=== PATIENT | male | born 1955 | race African-American/Black ===

== ENCOUNTER 2016-07-02 08:59 | Inpatient (IN) | payer OTHER ==
[2016-07-02] VITALS (12 sets, daily range): BP systolic 112–190; BP diastolic 63–114; PULSE 74–85; RESP 12–27; TEMP 97.3–98.7; O2SAT 96–100
[~2016-07-02 08:59] MED LIST: AMLO5TAB96 PO; CIPR-9 PO; DARU800T PO; DEXA4TAB PO; FURO20TA PO; HYDR2TAB PO; LEVA750T9 PO; METO25 PO; MIRTA15 PO; MUCI600T PO; NAPR250T57 PO; NRSS SQ; ONDA8 PO; POTA20IN3 PO; PYRI25TA11 PO; RALT100C PO; RITO100 PO; THIA100T PO; VENTAER INH; VIST25CA PO; [UNRECOGNIZED DRUG - CODE] PO; [UNRECOGNIZED DRUG - CODE] PO
[2016-07-02] MEDS ORDERED: SODIUM CHLOR 0.9% 1000 ML INJ 1,000 ML IV ONE (09:06)
[2016-07-02] MEDS ORDERED: MISCELLANEOUS NURSING INFORMATION XX PRN (09:15)
[2016-07-02] MEDS ORDERED: ALTEPLASE DRIP IV ONE (09:15)
[2016-07-02] MEDS ORDERED: SODIUM CHLORIDE 0.9% 50 ML BAG IVF ONE (09:15)
[2016-07-02] MEDS ORDERED: ALTEPLASE BOLUS 9 MG/9 ML SYR IV ONE (09:15)
--- NOTE | 2016-07-02 09:20 | RADRPT ---
EXAM DATE/TIME: 07/02/2016 09:12 [facility] COMPARISON: CT BRAIN W/O CONTRAST, June 22, 2013, 16:09. INDICATIONS : Right sided weakness and drift for one hour. RADIATION DOSE: 45.28 CTDIvol (mGy) This report was called to Dr. Neff at 0915 MEDICAL HISTORY : Cerebrovascular disease. Diabetes mellitus type 2. SURGICAL HISTORY : None. ENCOUNTER: Initial ACUITY: 1 day PAIN SCALE: 0/10 LOCATION: cranial TECHNIQUE: Multiple contiguous axial images were obtained of the head. Using automated exposure control and adj ustment of the mA and/or kV according to patient size, radiation dose was kept as low as reasonably a chievable to obtain optimal diagnostic quality images. FINDINGS: CEREBRUM: The ventricles are normal for age. No evidence of midline shift, mass lesion, hemorrhage or acute in farction. No extra-axial fluid collections are seen. POSTERIOR FOSSA: The cerebellum and brainstem are intact. The 4th ventricle is midline. The cerebellopontine angle i s unremarkable. EXTRACRANIAL: The visualized portion of the orbits is intact. SKULL: The calvaria is intact. No evidence of skull fracture. Prominent tonsils are noted. CONCLUSION: Negative for an acute process. Júnior Pratt MD FACR on July 02, 2016 at 9:17 Board Certified Radiologist. This report was verified electronically.
[2016-07-02 09:24] LABS: AUTOMATED NEUTROPHIL # 0.8 TH/MM3 (1.8-7.7); EOSINOPHIL # 0.3 TH/MM3 (0-0.4); EOSINOPHIL % 7.2 % (0.0-4.0); HEMATOCRIT 37.2 % (39.0-51.0); LYMPH % 63.5 % (9.0-44.0); MEAN CELL VOLUME 85.1 FL (80.0-100.0); MEAN CORPUSCULAR HGB CONC 32.9 % (32.0-36.0); MONO % 10.6 % (0.0-8.0); NEUT % 17.7 % (16.0-70.0); PLATELET COUNT 190 TH/MM3 (150-450); RED BLOOD COUNT 4.37 MIL/MM3 (4.50-5.90); RED CELL DISTRIBUTION WIDTH 15.2 % (11.6-17.2); WHITE BLOOD COUNT 4.7 TH/MM3 (4.0-11.0)
[2016-07-02] MEDS ORDERED: IOHEXOL 350 MG/ML 10 ML VIAL (for RAD DIAG) IV ONE (09:25)
[2016-07-02 09:28] LABS: HEMO FLAGS AUTO DIFF
[2016-07-02 09:32] LABS: APTT (PATIENT) 23.1 SEC (24.3-30.1); PROTHROMBIN TIME - PATIENT 11.2 SEC (9.8-11.6)
--- NOTE | 2016-07-02 09:50 | PD ---
HPI Chief Complaint: Stroke Alert Time Seen by Provider: 09:05 Travel History International Travel<30 days: No Contact w/Intl Traveler<30days: No History of Present Illness HPI This is a 60-year-old male who presents to the emergency department with a history of prior stroke, with weakness in his right upper extremity and right lower extremity that started 1 hour prior to arrival. He says he was sitting on the porch and when he got up to stand he realized that his right arm and right leg while working. He said his right arm and leg were working normally this morning prior to that. He says he's had a stroke in the past but has no residual deficits. He is not on any blood thinners currently. PFSH Past Medical History Hx Anticoagulant Therapy: Yes (ASA) Arthritis: Yes Asthma: Yes Autoimmune Disease: Yes Blood Disorders: No Anxiety: Yes Depression: Yes Heart Rhythm Problems: Yes Cancer: Yes (MULTIPLE MYELOMA) Cardiac Catheterization: No Cardiovascular Problems: Yes (HTN, CO) High Cholesterol: Yes Chemotherapy: Yes (3 WEEKS AGO) Chest Pain: Yes Congestive Heart Failure: Yes COPD: Yes Cerebrovascular Accident: Yes Diabetes: Yes Diminished Hearing: No Endocrine: Yes Gastrointestinal Disorders: Yes GERD: Yes Genitourinary: Yes (PT REPORTS URGENCY. ) Headaches: Yes Hepatitis: Yes (HEP C) Hiatal Hernia: No Hypertension: Yes Immune Disorder: Yes (HIV 2010) Implanted Vascular Access Dvce: Yes Kidney Stones: No Musculoskeletal: Yes Neurologic: Yes Psychiatric: Yes Reproductive: No Respiratory: Yes (COPD) Immunizations Current: No Migraines: Yes Myocardial Infarction: Yes Radiation Therapy: No Renal Failure: No Seizures: No Sleep Apnea: Yes Ulcer: No Past Surgical History Abdominal Surgery: No AICD: No Appendectomy: No Arteriovenous Shunt: No Body Medical Devices: METAL PLATES IN JAW AND SKULL Cardiac Surgery: No Cholecystectomy: No Coronary Artery Bypass Graft: No Ear Surgery: No Endocrine Surgery: No Eye Surgery: No Genitourinary Surgery: No Gynecologic Surgery: No Insulin Pump: No Joint Replacement: No Neurologic Surgery: No Oral Surgery: No Pacemaker: No Thoracic Surgery: No Other Surgery: Yes (BONE MARROW BIOPSY) Social History Alcohol Use: Yes (occasional) Tobacco Use: Yes (1-2 CIG DAILY) Substance Use: Yes (MARIJUANA daily, and cocaine OCCASIONALLY) Allergies-Medications (Allergen,Severity, Reaction): Coded Allergies: Penicillin (Verified Allergy, Severe, RASH, 06/12/16) Methocarbamol (Verified Allergy, Intermediate, SWELLING AROUND EYES, 06/12) *MDRO Multi-Drug Resistant Organism (Verified Adverse Reaction, Unknown, 06/12/16) Reported Meds & Prescriptions Reported Meds & Active Scripts Active Cipro (Ciprofloxacin HCl) 500 Mg Tab 500 Mg PO BID Mucinex (Guaifenesin) 600 Mg Tabcr 600 Mg PO BID Levaquin (Levofloxacin) 750 Mg Tab 1 Tab PO DAILY 7 Days Reported Naprosyn (Naproxen) 250 Mg Tab 250 Mg PO BID PRN Hydromorphone Hcl (Hydromorphone HCl) 4 Mg Tab 4 Mg PO Q6HR Zofran 8 Mg Tab (Ondansetron Hcl) 8 Mg Tab 8 Mg PO Q8HR PRN Siltussin [place] (Guaifenesin) 100 Mg/5 Ml Syp 200 Mg PO Q12HR MUST BE SUGAR & ALCOHOL FREE Novolin Regular Insulin Supplemental Scale (Insulin Human Regular) U 100 Inj 2- 12 Units SQ TIDACHS Medium Dose Regular Insulin Sliding Scale = Max dose at bedtime:( )units; Max dose at 3am:( ); blood sugars less than 70 take zero insulin units; blood sugars 150-199 take 2 unit; blood sugars 200-249 take 4 units; blood sugars 250-299 take 7 units; blood sugars 300-349 take 10 units; blood sugars greater than 349 take 12 units Dexamethasone 4 mg (Dexamethasone) 4 Mg Tab 40 Mg PO WEEKLY TAKES ON THURSDAYS Furosemide 20 Mg Tab 20 Mg PO DAILY Metoprolol Tartrate 25 mg (Metoprolol Tartrate) 25 Mg Tab 6.25 Mg PO BID [id number] 25 Mg Tab 50 Mg PO DAILY Thiamine HCl 100 Mg Tab 100 Mg PO DAILY Prezista (Darunavir Ethanolate) 800 Mg Tab 800 Mg PO DAILY [id number] 18 Gm Aero 2 Puff INH Q4HPRN PRN * SHAKE WELL BEFORE USE * Isentress (Raltegravir Potassium) 100 Mg Chw 400 Mg PO Q12HR Potassium Chloride inj (Potassium Chloride) 20 Meq Pow 20 Meq PO BID W/4OZ WATER Mirtazapine 15 Mg Tab 15 Mg PO HS Norvasc (Amlodipine Besylate) 5 Mg Tab 5 Mg PO DAILY Ziagen 300 mg (Abacavir Sulfate) 300 Mg Tab 600 Mg PO Q12 Vistaril (Hydroxyzine Pamoate) 25 Mg Cap 25 Mg PO [id number] for itching Norvir (Ritonavir) 100 Mg Cap 100 Mg PO BID Review of Systems Except as stated in HPI: all other systems reviewed are Neg Physical Exam Narrative GENERAL: Frail, no acute distress SKIN: Warm and dry. HEAD: Atraumatic. Normocephalic. EYES: Pupils equal and round. No injection or drainage. ENT: Moist mucous membranes NECK: Trachea midline. CARDIOVASCULAR: Regular rate and rhythm. No murmur appreciated. RESPIRATORY: Clear to auscultation. Breath sounds equal bilaterally. GASTROINTESTINAL: Abdomen soft, non-tender, nondistended. MUSCULOSKELETAL: No obvious deformities. NEUROLOGICAL: Awake and alert. No obvious cranial nerve deficits. No dysarthria or aphasia. Unable to lift the right arm off the bed, right leg has 4/5 strength and is ataxic, sensation is diminished on the right upper and right lower extremities. PSYCHIATRIC: Appropriate mood and affect; insight and judgment normal. Data Data Last Documented VS Vital Signs Date Time Temp Pulse Resp B/P Pulse Ox O2 Delivery O2 Flow Rate FiO2 07/02/16 09:39 Nasal Cannula 07/02/16 09:39 96 2 Orders Diet Npo (07/02/16 Breakfast) Activity Bed Rest (07/02/16 ) Electrocardiogram (07/02/16 ) I-Stat Creatinine (07/02/16 09:06) I-Stat Profile (07/02/16 09:06) Prothrombin Time / Inr (Pt) (07/02/16 09:06) Act Partial Throm Time (Ptt) (07/02/16 09:06) Complete Blood Count With Diff (07/02/16 09:06) Fibrinogen (07/02/16 09:06) Creatine Kinase (Cpk) (07/02/16 09:06) Troponin I (07/02/16 09:06) Ua Includes Microscopic (07/02/16 09:06) Drug Screen, Random Urine (07/02/16 09:06) Type And Screen (07/02/16 09:06) Ct Brain W/O Iv Contrast(Rout) (07/02/16 ) Consult Neurology (07/02/16 ) Blood Glucose (07/02/16 09:06) Ecg Monitoring (07/02/16 09:06) Neuro Checks Q2HX12,Q4H (07/02/16 09:06) Nursing Bedside Swallow Assess .ONCE (07/02/16 09:06) Iv Access Insert/Monitor (07/02/16 09:06) NPO (07/02/16 09:06) Oximetry (07/02/16 09:06) Oxygen Administration (07/02/16 09:06) Sodium Chlor 0.9% 1000 Ml Inj (Ns 1000 M (07/02/16 09:06) Resp Oxygen Iron C Titrat 1-4 L (07/02/16 09:06) Cath For Specimen (07/02/16 09:06) ^ Call Pharmacy (07/02/16 09:10) Nih Stroke Scale - Nihss .ONCE (07/02/16 09:10) Urinary Catheter Management BERYL.Q8H (07/02/16 09:10) Urinary Catheter Insert/Apply (07/02/16 09:10) ^ Anticoagulant Alert (07/02/16 09:10) ^ Post Infusion Restrictions (07/02/16 09:10) ^ Medication Alert (07/02/16 09:10) Vital Signs (Adult) .As directed (07/02/16 09:10) ^ Notify Dr: Blood Pressure (07/02/16 09:10) ^ Medication Alert (07/02/16 09:10) Alteplase Bolus (Activase Bolus) (07/02/16 09:15) Alteplase Drip (Activase Drip) (07/02/16 09:15) Sodium Chloride 0.9% Inj (Ns Inj) (07/02/16 09:15) Misc Nursing Information (07/02/16 09:15) Resp Oxygen Iron C Titrat 1-4 L (07/02/16 ) Cta Brain W Iv Contrast W 3d (07/02/16 ) Cta Neck W Iv Contrast W 3d (07/02/16 ) Iohexol 350 Inj (Omnipaque 350 Inj) (07/02/16 09:25) Labs Laboratory Tests Test 07/02/16 09:05 White Blood Count 4.7 TH/MM3 Red Blood Count 4.37 MIL/MM3 Hemoglobin 12.2 GM/DL Hematocrit 37.2 % Mean Corpuscular Volume 85.1 FL Mean Corpuscular Hemoglobin 28.0 PG Mean Corpuscular Hemoglobin 32.9 % Concent Red Cell Distribution Width 15.2 % Platelet Count 190 TH/MM3 Mean Platelet Volume 8.4 FL Neutrophils (%) (Auto) 17.7 % Lymphocytes (%) (Auto) 63.5 % Monocytes (%) (Auto) 10.6 % Eosinophils (%) (Auto) 7.2 % Basophils (%) (Auto) 1.0 % Neutrophils # (Auto) 0.8 TH/MM3 Lymphocytes # (Auto) 3.0 TH/MM3 Monocytes # (Auto) 0.5 TH/MM3 Eosinophils # (Auto) 0.3 TH/MM3 Basophils # (Auto) 0.0 TH/MM3 CBC Comment AUTO DIFF Prothrombin Time 11.2 SEC Prothromb Time International 1.0 RATIO Ratio Activated Partial 23.1 SEC Thromboplast Time Fibrinogen 266 mg/dL MDM Medical Screen Exam Complete: Yes Emergency Medical Condition: Yes Medical Record Reviewed: Yes (patient evidently has a history of HIV, multiple myeloma and other multiple medical problems) Differential Diagnosis Ischemic stroke, hemorrhagic stroke, seizure, tumor Narrative Course This is a 60-year-old male who presents to the emergency department brought in as a stroke alert. He has evidence of right upper and right lower extremity weakness and he says the symptoms started an hour prior to arrival. Patient appears to be a good TPA candidate. He was placed on a monitor and an IV was established. He was given IV labetalol and started on a nicardipine drip. He was transferred stat to CT and dry CT of the head was negative for intracranial hemorrhage. I spoke to the patient regarding risks and benefits of TPA and he was agreeable to initiation of TPA. TPA was started and a CTA of the head and neck were obtained to evaluate for possible intervenable lesion. Patient will be admitted to the intensive care unit. Critical Care Narrative Aggregate critical care time was 45 minutes. Time to perform other separately billable procedures was not included in the critical care time. My time did not include minutes spent treating any other patients simultaneously or on activities that did not directly contribute to the patient's treatment. The services I provided to this patient were to treat and/or prevent clinically significant deterioration that could result in: disability, I provided critical care services requiring my management, as noted below: Chart data review, documentation time, medication orders and management, vital sign assessments/reviewing monitor data, ordering and reviewing lab tests, ordering and interpreting/reviewing x-rays and diagnostic studies, care of the patient and discussion of the patient with the admitting physicians. Stroke Alert NIHSS NIH Stroke Scale Result: 6 NIHSS Time Completed: 09:10 Physician Communication Physician Communication Discussed with Dr. Mcneill Diagnosis Diagnosis: Primary Impression: Stroke Qualified Code: I63.9 - Cerebrovascular accident (CVA), unspecified mechanism Admitting Physician Requests: Admit Ninfa Vidales MD Jul 02, 2016 09:50
[2016-07-02 09:52] LABS: CREATINE KINASE 208 U/L (39-308)
[2016-07-02 09:54] LABS: I-STAT POTASSIUM 3.6 MMOL/L (3.5-4.9); I-STAT SODIUM 141 MMOL/L (138-146)
--- NOTE | 2016-07-02 09:59 | PD.CONS ---
History of Present Illness Service Neurology Consult Requested By er Reason for Consult stroke alert Primary Care Physician [facility] History of Present Illness 60 y/o m brought in for acute rt sided weakness. onset approx 1 hour before arrival. he thinks he has had a previous stroke. not on any blood thinners. ct brain naicp. cta brain/carotids, no major vessel occlusion. glucose 91. no hx of gi/gu bleed, ich, recent mi. tx options d/w pt. would iv tpa understanding at least 6% chance of ich, systemic bleeding. Review of Systems All other ROS: ROS reviewed as documented in chart Past Family Social History Allergies: Coded Allergies: Penicillin (Verified Allergy, Severe, RASH, 07/02/16) Methocarbamol (Verified Allergy, Intermediate, SWELLING AROUND EYES, ) *MDRO Multi-Drug Resistant Organism (Verified Adverse Reaction, Unknown, ) Active Ordered Medications Current Medications Medications (Trade) Dose Ordered Sig/Donna Route Start Time Stop Time Status Last Admin Sodium Chloride 1,000 ml @ 70 mls/hr [id number] ONCE IV 07/02/16 09:06 07/02/16 23:23 (Activase Drip/ Syringe/Bag) 46.5 ml @ 46.5 mls/hr ONCE ONCE IV 07/02/16 09:15 07/02/16 10:14 07/02/16 09:34 Miscellaneous Information No Heparin, Warfarin, Aspir... UNSCH PRN XX 07/02/16 09:15 07/03/16 09:14 Exam I&O / VS Vital Signs Date Time Temp Pulse Resp B/P Pulse Ox O2 Delivery O2 Flow Rate FiO2 07/02/16 09:39 Nasal Cannula 07/02/16 09:39 96 Nasal Cannula 2 07/02/16 09:07 96 Nasal Cannula 3.00 07/02/16 09:00 97.7 80 15 190/114 96 07/02/16 08:59 96 3.00 General: Alert and Oriented, No acute distress Eye: EOMI Respiratory: Non-labored respirations Neurologic: Alert, Oriented Psychiatric: Cooperative, Appropriate mood & affect Exam Comments ox 3. follows, eomi, vff, face sym, articulate but mild dysfluency, rt hemiplegia with proportional dystaxia nihss 10 Review/Management Diagnosis/Plan: (1) Acute ischemic left MCA stroke Plan: s/p iv tpa -hx of hiv, multiple myeloma ? vasculopathy vs 2/2 small vessel dz from chronic htn recs post-tpa orders isc admission mri brain, echo bp <180/100; cardene gtt as needed scd's no blood thinners for 24 hrs (2) HTN (hypertension) (3) Multiple myeloma Problem Qualifiers (1) HTN (hypertension): Qualified Code: I10 - Essential hypertension (2) Multiple myeloma: Qualified Code: C90.00 - Multiple myeloma, remission status unspecified Francis Mcneill MD Jul 02, 2016 09:59
--- NOTE | 2016-07-02 10:11 | RADRPT ---
EXAM DATE/TIME: 07/02/2016 09:21 [facility] COMPARISON: CT PULMONARY ANGIOGRAM, December 06, 2012, 18:19. INDICATIONS : Right sided weakness and drift for one hour. IV CONTRAST: 75 cc Omnipaque 350 (iohexol) IV ; Cumulative dose for multiple exams. RADIATION DOSE: 27.72 CTDIvol (mGy) ; Combined studies MEDICAL HISTORY : Diabetes mellitus type 2. Cerebrovascular disease. SURGICAL HISTORY : None. ENCOUNTER: Initial ACUITY: 1 day PAIN SCALE: 0/10 LOCATION: cranial TECHNIQUE: Volumetric scanning was performed using a multi-row detector CT scanner. The data was post processed with a variety of visualization algorithms including full volume maximum intensity projection, multi -planar sliding thin slab reformation, curved planar reformation, and surface rendering techniques. Using automated exposure control and adjustment of the mA and/or kV according to patient size, radiat ion dose was kept as low as reasonably achievable to obtain optimal diagnostic quality images. FINDINGS: The right posterior cerebral artery origin is . The supraclinoid left internal carotid artery is notable for a tiny saccular outpouching along its undersurface in the region of the expected origin of the posterior communicating artery measuring about 2 mm in size consistent with a tiny aneurysm. T he port lions of [place] vessels are otherwise intact and unremarkable. There is no evidence of major vess el occlusion or stenosis. No vascular malformation is identified. CONCLUSION: Tiny left ICA aneurysm. Otherwise unremarkable with no acute vascular findings. Kiko Kang MD on July 02, 2016 at 10:00 Board Certified Radiologist. This report was verified electronically.
[2016-07-02 10:12] LABS: EOSINOPHILS 10 % (0-4); NEUTROPHIL # MANUAL DIFF 0.9 TH/MM3 (1.8-7.7); POLYS (SEG NEUTROPHILS) 19 % (16-70); WBC DIFF SAMPLE 100
[2016-07-02 10:13] LABS: PLATELET ESTIMATE SMEAR NORMAL (NORMAL); PLATELET MORPHOLOGY NORMAL (NORMAL); SCAN/DIFF FINAL DIFF MANUAL
--- NOTE | 2016-07-02 10:23 | RADRPT ---
EXAM DATE/TIME: 07/02/2016 09:21 [facility] COMPARISON: No previous studies available for comparison. INDICATIONS : Right sided weakness and drift for one hour. IV CONTRAST: 75 cc Omnipaque 350 (iohexol) IV ; Cumulative dose for multiple exams. RADIATION DOSE: 27.70 CTDIvol (mGy) ; Combined studies MEDICAL HISTORY : Cerebrovascular disease. Hypertension. SURGICAL HISTORY : None. ENCOUNTER: Initial ACUITY: 1 day PAIN SCALE: 0/10 LOCATION: cranial TECHNIQUE: Volumetric scanning was performed using a multirow detector CT scanner. The data was post processed with a variety of visualization algorithms including full-volume maximum intensity projection, multip lanar sliding thin-slab reformation, curved-planar reformation, and surface-rendering techniques. Us ing automated exposure control and adjustment of the mA and/or kV according to patient size, radiatio n dose was kept as low as reasonably achievable to obtain optimal diagnostic quality images. FINDINGS: There is a slightly less than 2 cm irregular parenchymal density in the right lung apex. AORTIC ARCH: There is a three-vessel origin of the great vessels from the aorta. No evidence of ostial narrowing. RIGHT CAROTID: Minimally eccentric plaque at the origin of the internal carotid artery without significant associate d stenotic narrowing. LEFT CAROTID: Mild eccentric plaque at the origin of the left internal carotid artery producing about 30% stenotic narrowing. VERTEBRALS: Patent bilaterally, left side dominant. CONCLUSION: Nodular density in the right lung apex. Followup versus further elective evaluation with PET CT recom mended as clinically appropriate. No significant carotid stenosis Kiko Kang MD on July 02, 2016 at 10:17 Board Certified Radiologist. This report was verified electronically.
[2016-07-02 10:48] LABS: BLOOD, URINE NEG (NEG); GLUCOSE,URINE NEG (NEG); KETONE, URINE NEG (NEG); NITRITE,URINE NEG (NEG); SQUAMOUS EPITHELIAL CELL URINE <1 /hpf (0-5); URINE COLOR LIGHT-YELLOW (YELLW/STRAW)
[2016-07-02 10:56] LABS: AMPHETAMINE, URINE NEG (NEG); BARBITURATES, URINE NEG (NEG); COCAINE, URINE POS (NEG)
[2016-07-02] MEDS ORDERED: GLUCAGON 1 MG/ML VIAL IM/SQ PRN (11:00)
[2016-07-02] MEDS ORDERED: MAGNESIUM SULFATE INJ 2 GM in SODIUM CHLORIDE 0.9% INJ 96 ML IV PRN (11:00)
[2016-07-02] MEDS ORDERED: CHLORHEXIDINE GLUCONATE 2 % 1 PACK (2 CLOTHS) TOP PRN (11:00)
[2016-07-02] MEDS ORDERED: RESP: ALBUTEROL 2.5 MG/IPRATROPIUM 0.5 MG NEB (PRN) INH (11:00)
[2016-07-02] MEDS: INSULIN ASPART SUPPLEMENTAL SCALE SQ SCH ×3 (11:00→21:00)
[2016-07-02] MEDS ORDERED: MAGNESIUM OXIDE 400 MG TAB PO PRN (11:00)
[2016-07-02] MEDS ORDERED: POTASSIUM CHLOR 40 MEQ PREMIX 100 ML IV PRN ×2 (11:00)
[2016-07-02] MEDS ORDERED: ACETAMINOPHEN 325 MG TAB PO PRN (11:00)
[2016-07-02] MEDS ORDERED: POTASSIUM PHOSPHATE INJ 30 MMOL in SODIUM CHLOR 0.9% 250 ML INJ 250 ML IV PRN (11:00)
[2016-07-02] MEDS ORDERED: SODIUM PHOSPHATE INJ 30 MMOL in SODIUM CHLOR 0.9% 250 ML INJ 240 ML IV PRN (11:00)
[2016-07-02] MEDS ORDERED: POTASSIUM CL 40 MEQ/30 ML LIQ UDC PO/TUBE PRN ×2 (11:00)
[2016-07-02] MEDS ORDERED: MAGNESIUM SULFATE INJ 4 GM in SODIUM CHLORIDE 0.9% INJ 92 ML IV PRN (11:00)
[2016-07-02] MEDS ORDERED: ONDANSETRON HCL 4 MG/2 ML VIAL IV PRN (11:00)
[2016-07-02] MEDS ORDERED: POTASSIUM PHOSPHATE MONOBASIC 500 MG TAB PO/TUBE PRN (11:00)
[2016-07-02] MEDS ORDERED: niCARdipine INJ 25 MG in SODIUM CHLOR 0.9% 250 ML INJ 250 ML IV SCH (11:00)
[2016-07-02] MEDS ORDERED: MISCELLANEOUS NURSING INFORMATION XX SCH (11:00)
[2016-07-02] MEDS ORDERED: POTASSIUM CHLOR 20 MEQ PREMIX 100 ML IV PRN ×2 (11:00)
[2016-07-02] MEDS ORDERED: DEXTROSE 50% IN WATER 50 ML VIAL(D50) IV PUSH PRN (11:00)
[2016-07-02] MEDS ORDERED: SODIUM CHLORIDE 0.9% FLUSH 5 ML FLUSH IV FLUSH PRN (11:00)
[2016-07-02] MEDS ORDERED: SODIUM CHLORIDE 0.9% FLUSH 5 ML FLUSH IVF PRN (11:00)
[2016-07-02] MEDS ORDERED: POTASSIUM PHOSPHATE MONOBASIC 500 MG TAB PO PRN (11:00)
[2016-07-02] MEDS ORDERED: MORPHINE SULFATE 4 MG/ML INJ IV PRN (11:00)
[2016-07-02] MEDS ORDERED: SENNOSIDES 8.6 MG TAB PO PRN (11:00)
[2016-07-02 11:13] LABS: HDL CHOLESTEROL 95.3 MG/DL (40.0-60.0); LDL CHOLESTEROL 115 MG/DL (0-99)
[2016-07-02] MEDS ORDERED: RITO100 PO (11:29)
[2016-07-02] MEDS ORDERED: METO25TA3 PO (11:29)
[2016-07-02] MEDS ORDERED: ONDA1TAB17 PO (11:29)
[2016-07-02] MEDS ORDERED: POTA1TAB4 PO (11:29)
[2016-07-02] MEDS ORDERED: RALT400 PO (11:29)
[2016-07-02] MEDS ORDERED: MIRTA15 PO (11:29)
[2016-07-02] MEDS ORDERED: NOVORP2 SQ (11:29)
[2016-07-02] MEDS ORDERED: NAPR250T PO (11:29)
[2016-07-02] MEDS ORDERED: THIA100T PO (11:29)
[2016-07-02] MEDS ORDERED: GUAI1TAB7 PO (11:36)
[2016-07-02] MEDS ORDERED: DEXA4TAB PO (11:36)
[2016-07-02] MEDS ORDERED: DILA4TAB2 PO (11:36)
[2016-07-02] MEDS ORDERED: VIST25CA PO (11:36)
[2016-07-02] MEDS ORDERED: PYRI25 PO (11:36)
[2016-07-02] MEDS ORDERED: [UNRECOGNIZED DRUG - CODE] PO (11:36)
[2016-07-02] MEDS ORDERED: DARU800T PO (11:36)
[2016-07-02] MEDS ORDERED: FURO1TAB62 PO (11:36)
[2016-07-02] MEDS ORDERED: AMLO5TAB2 PO (11:36)
[2016-07-02] MEDS ORDERED: VENTAER INH (11:37)
[2016-07-02] MEDS ORDERED: ZIAG300T3 PO (11:37)
--- NOTE | 2016-07-02 11:50 | HHI.HP ---
[facility] Service Critical Care Medicine Primary Care Physician [facility] Admission Diagnosis stroke Diagnosis: (1) Stroke Diagnosis: Principal (2) Acute ischemic left MCA stroke Diagnosis: Principal (3) Multiple myeloma (4) HTN (hypertension) Diagnosis: Principal (5) Diabetes Diagnosis: Principal (6) Chronic back pain Diagnosis: Principal (7) COPD (chronic obstructive pulmonary disease) Diagnosis: Principal (8) GERD (gastroesophageal reflux disease) Diagnosis: Principal (9) Anxiety and depression Diagnosis: Principal (10) High cholesterol Diagnosis: Principal (11) HCV (hepatitis C virus) Diagnosis: Principal (12) HIV (human immunodeficiency virus infection) Diagnosis: Principal (13) CAD (coronary artery disease) Diagnosis: Principal (14) Compression fracture of lumbar vertebra Diagnosis: Principal (15) Tetrahydrocannabinol (THC) use disorder, mild, abuse Diagnosis: Principal (16) Tobacco abuse Diagnosis: Principal Chief Complaint: Right sided weakness Travel History International Travel<30 Days: No Contact w/Intl Traveler <30 Da: No Traveled to Known Affected Are: No History of Present Illness 60-year-old AA male. Date of admission 07/02/2016. Past medical history includes HIV, hepatitis C, hypertension, depression, anxiety, COPD, diabetes, dyslipidemia, prior NE, THC, ongoing tobaccoism and chronic nausea. This individual presents to [place] emergency department with a history of prior stroke, with weakness in his right upper extremity and right lower extremity that started 1 hour prior to arrival. At approximately 820, this individual says he was sitting on the porch and when he got up to stand he realized that his right arm and right leg while working. He said his right arm and leg were working normally this morning prior to that. He says he's had a stroke in the past but has no residual deficits. In the ED, stroke or skull. CT head revealed no acute intracranial findings. CTA of the head revealed a small ICA aneurysm projecting [address] neck showed no vascular abnormalities but revealed pulmonary mass right apex that will need follow-up CT PET scan. Patient was evaluated Dr. Mcneill/neurology. NIH score was 6 with motor arm 2, motor leg 3 and 1 for limb ataxia in the right arm. Patient received alteplase with a 6 mg bolus followed by 54 mg overnight. Patient is hypertensive with systolic blood pressure 190s was started on a Cardene drip. Neurological examination is unchanged throughout the infusion. Review of Systems Constitutional: DENIES: Fatigue, Fever Endocrine: DENIES: Polydipsia, Polyuria Eyes: DENIES: Blurred vision, Double Vision Ears, nose, mouth, throat: DENIES: Hearing loss, Running Nose, Epistaxis Respiratory: DENIES: Apneas Cardiovascular: DENIES: Chest pain, Lower Extremity Edema Gastrointestinal: DENIES: Abdominal pain, Vomiting Genitourinary: DENIES: Sexual dysfunction Musculoskeletal: DENIES: Joint pain Integumentary: DENIES: Abnormal pigmentation Hematologic/lymphatic: DENIES: Bruising Immunologic/allergic: DENIES: Eczema Neurologic: COMPLAINS OF: Localized weakness, Poor Balance, DENIES: Abnormal gait Psychiatric: DENIES: Anxiety, Confusion Past Family Social History Allergies: Coded Allergies: Penicillin (Verified Allergy, Severe, RASH, 07/02/16) Methocarbamol (Verified Allergy, Intermediate, SWELLING AROUND EYES, ) *MDRO Multi-Drug Resistant Organism (Verified Adverse Reaction, Unknown, ) Past Medical History Alcohol use Ongoing tobaccoism THC use Prior history of CVA. Prior history of cocaine use Hypertension Congestive heart failure unknown etiology. Last echocardiogram EF 55-60% 2006. Hypertension Dyslipidemia COPD SILVANA Hepatitis C Chronic nausea Gastroesophageal reflux disease BPH HIV Osteoporosis/arthritis Diabetes mellitus Low back pain Past Surgical History Mandibular fracture Bone marrow biopsy Vertebral body biopsy Reported Medications Dexamethasone 40 mg daily Remeron 15 mg at night Zofran 8 mg every 8 hours as needed for nausea Ziagen 600 mg every 12 hours Prezista 800 mg daily Inetress 400 mg every 12 hours [place]. 100 mg twice a day Norvasc 5 mg by mouth daily Mucinex 600 mg by mouth twice a day Lasix 20 mg by mouth daily Dilaudid 4 mg by mouth every 6 hours Daraprim 50 mg by mouth daily KCl 20 mEq twice a day Thiamine 100 mg by mouth daily Active Ordered Medications Reviewed in EMR Family History Mother and and father are noncontributory to the history of present illness. 3 times.. Lives with sister. Has 4 children. Social History One half Per day tobacco. Used to be 2 pack per day. Social alcohol use. Positive THC use. Positive history of cocaine abuse. Physical Exam Vital Signs Vital Signs Date Time Temp Pulse Resp B/P Pulse Ox O2 Delivery O2 Flow Rate FiO2 07/02/16 09:39 Nasal Cannula 07/02/16 09:39 96 Nasal Cannula 2 07/02/16 09:07 96 Nasal Cannula 3.00 07/02/16 09:00 97.7 80 15 190/114 96 07/02/16 08:59 96 3.00 Physical Exam GENERAL: 60 -year-old AA male, critically ill currently resting in bed in no acute distress SKIN: Warm and dry. Multiple tattoos on the thorax HEAD: Atraumatic. Normocephalic. EYES: Pupils equal and round about 3 mm bilaterally and reactive. No scleral icterus. No injection or drainage. ENT: No nasal bleeding or discharge. Mucous membranes pink and moist. NECK: Trachea midline. No JVD. CARDIOVASCULAR: Regular rate and rhythm. S1, S2. No S4 without murmur RESPIRATORY: Clear to auscultation. Breath sounds equal bilaterally. GASTROINTESTINAL: Abdomen soft, non-tender, scaphoid. Hypoactive bowel sounds MUSCULOSKELETAL: Extremities without significant peripheral edema. No obvious deformities. NEUROLOGICAL: Awake and alert. No obvious cranial nerve deficits. Right motor arm 2/5. Right motor leg 1/5. Left upper and lower extremity 5/5. DTRs equal/ symmetric bilaterally. Normal sensation.. PSYCHIATRIC: Appropriate mood and affect; insight and judgment normal. Laboratory Laboratory Tests Test 07/02/16 07/02/16 09:05 10:15 White Blood Count 4.7 Red Blood Count 4.37 Hemoglobin 12.2 Bedside Hemoglobin 12.9 Hematocrit 37.2 Bedside Hematocrit 38.0 Mean Corpuscular Volume 85.1 Mean Corpuscular Hemoglobin 28.0 Mean Corpuscular Hemoglobin 32.9 Concent Red Cell Distribution Width 15.2 Platelet Count 190 Mean Platelet Volume 8.4 Neutrophils (%) (Auto) 17.7 Lymphocytes (%) (Auto) 63.5 Monocytes (%) (Auto) 10.6 Eosinophils (%) (Auto) 7.2 Basophils (%) (Auto) 1.0 Neutrophils # (Auto) 0.8 Lymphocytes # (Auto) 3.0 Monocytes # (Auto) 0.5 Eosinophils # (Auto) 0.3 Basophils # (Auto) 0.0 CBC Comment AUTO DIFF Differential Total Cells 100 Counted Neutrophils % (Manual) 19 Lymphocytes % 63 Monocytes % 8 Eosinophils % 10 Neutrophils # (Manual) 0.9 Differential Comment FINAL DIFF MANUAL Platelet Estimate NORMAL Platelet Morphology Comment NORMAL Red Cell Morphology Comment NORMAL Prothrombin Time 11.2 Prothromb Time International 1.0 Ratio Activated Partial 23.1 Thromboplast Time Fibrinogen 266 Bedside Sodium 141 Bedside Potassium 3.6 Bedside Chloride 103 Bedside Blood Urea Nitrogen 10 Bedside Creatinine 1.2 Bedside Glucose 91 Total Creatine Kinase 208 Troponin I LESS THAN 0.02 Blood Type B POSITIVE Antibody Screen NEGATIVE Blood Bank Comment Urine Color LIGHT-YELLOW Urine Turbidity CLEAR Urine pH 7.0 Urine Specific [place] 1.029 Urine Protein NEG Urine Glucose (UA) NEG Urine Ketones NEG Urine Occult Blood NEG Urine Nitrite NEG Urine Bilirubin NEG Urine Urobilinogen LESS THAN 2.0 Urine Leukocyte Esterase NEG Urine RBC LESS THAN 1 Urine WBC LESS THAN 1 Urine Squamous Epithelial <1 Cells Urine Opiates Screen NEG Urine Barbiturates Screen NEG Urine Amphetamines Screen NEG Urine Benzodiazepines Screen NEG Urine Cocaine Screen POS Urine Cannabinoids Screen NEG Result Diagram: 07/02/16904 Imaging Last Impressions Neck CTA 07/02/16 0000 Signed Impressions: Service Date/Time: Saturday, July 02, 2016 09:21 - CONCLUSION: Nodular density in the right lung apex. Followup versus further elective evaluation with PET CT recommended as clinically appropriate. No significant carotid stenosis Kiko Kang MD Head CTA 07/02/16 0000 Signed Impressions: Service Date/Time: Saturday, July 02, 2016 09:21 - CONCLUSION: Tiny left ICA aneurysm. Otherwise unremarkable with no acute vascular findings. Kiko Kang MD Head CT 07/02/16 0000 Signed Impressions: Service Date/Time: Saturday, July 02, 2016 09:12 - CONCLUSION: Negative for an acute process. Júnior Pratt MD FACR Assessment and Plan Assessment and Plan Neuro/Psych: Left MCA CVA with right upper and lower extremity motor weakness History of CVA 2 mm left ICA aneurysm EtOH THC History of migraine headache Chronic narcotic use with Dilaudid CT head revealed no acute intracranial findings CTA head/neck revealed left ICA 2 mm saccular aneurysm. Seen by Dr. Mcneill/neurology Status post alteplase. MRI/echo/[address] head all pending Patient is on thiamine 100 mg by mouth daily for EtOH use. Patient is on Dilaudid 4 mg every 6 hours scheduled for chronic pain syndrome Patient is on Remeron 50 mg at night for depression. Resume clinically indicated CV: Hypertensive urgency Congestive heart failure unknown etiology Dyslipidemia Currently on Cardene drip to maintain systolic blood pressure was 185, diastolic blood pressure less than 110. Patient is on Norvasc 5 mg by mouth daily for hypertension at home. Resp: COPD Left apex mass - follow-up CT PET scan recommended Nasal cannula to maintain saturations greater than equal to 92% Incentive spirometry while awake Bronchodilator therapy every 6 hours and as needed GI: Hepatitis C Gastroesophageal reflux disease Chronic nausea Patient is currently nothing by mouth Protonix 40 mg IV daily for GI prophylaxis Colace/as needed Senokot for bowel regimen Patient is on Zofran 8 mg every 8/Vistaril 20 mg every 12 hours for chronic nausea : BPH [place] if indicated for accurate I's and O's in a critically ill patient Endo: Diabetes mellitus Sliding-scale insulin with Accu-Cheks to maintain euglycemia. Low regimen Follow-up on hemoglobin A1c and TSH Patient is on Humulin R sliding scale insulin to 12 units before meals/at bedtime at home Renal: Creatinine currently within normal limits. Monitor urine output closely Currently normal saline at 70 cc an hour Heme: Multiple myeloma Normocytic anemia Leukocytosis Follow CBC in a.m. Coags within normal limits Patient is on Decadron 40 mg every for his Velcade therapy. Received with Dr. Bradly Lopez.. ID: HIV Patient is on Ziagen 600 mg every 12 hours, Prezista 800 mg daily, Inetress 400 mg by mouth every 12 hours and Norvir 100 mg by mouth twice a day. Resume when clinically indicated Patient is on Daraprim 50 mg by mouth daily for toxoplasmosis prophylaxis Follow-up UA FEN: Replace electrolytes as clinically indicated per electrolyte protocol MSK: Chronic low back pain Osteoporosis/osteoarthritis PT/OT evaluate and treat. Access - Utilize peripheral IV. Central if indicated Prophylaxis - GI - Protonix - DVT - SCD/pharmacological prophylaxis contraindicated status post alteplase was 24 hours Critical Care: The total critical care time was 55 minutes. Time to perform other separately billable procedures was not included in the critical care time. Code Status Full code Discussed Condition With Dr. Vidales/ED physician and patient. Care plan discussed and all questions answered Problem Qualifiers (1) Stroke: Qualified Code: I63.9 - Cerebrovascular accident (CVA), unspecified mechanism (2) Multiple myeloma: Qualified Code: C90.00 - Multiple myeloma, remission status unspecified (3) HTN (hypertension): Qualified Code: I10 - Essential hypertension (4) Diabetes: Qualified Code: E11.8 - Type 2 diabetes mellitus with complication, without long-term current use of insulin (5) Chronic back pain: Qualified Code: M54.5 - Chronic bilateral low back pain without sciatica (6) COPD (chronic obstructive pulmonary disease): Qualified Code: J44.9 - Chronic obstructive pulmonary disease, unspecified COPD type (7) HCV (hepatitis C virus): Qualified Code: B18.2 - Chronic hepatitis C without hepatic coma (8) CAD (coronary artery disease): Qualified Code: I25.10 - Coronary artery disease involving rampart heart without angina pectoris, unspecified vessel or lesion type (9) Compression fracture of lumbar vertebra: Qualified Code: S32.000D - Compression fracture of lumbar vertebra, with routine healing, subsequent encounter Claudio Kahn MD Jul 02, 2016 11:50
--- NOTE | 2016-07-02 12:24 | EKG ---
Date Performed: 07/02/2016 Time Performed: 09:40:33 PTAGE: 60 years EKG: Sinus rhythm POSSIBLE ANTERIOR MYOCARDIAL INFARCTION ABNORMAL ECG INTERPRETATION BASED ON A DEFAULT AGE OF 41 SHAUN ROLLINS PREVIOUS TRACING : 06/12/2016 06.11 DOCTOR: Kyrie Mayen Interpretating Date/Time 07/02/2016 12:20:44
--- NOTE | 2016-07-02 12:53 | RADRPT ---
EXAM DATE/TIME: 07/02/2016 11:36 [facility] COMPARISON: No previous studies available for comparison. INDICATIONS : Right sided weakness. Stroke alert. MEDICAL HISTORY : Diabetes mellitus type 2. HIV. Hepatitis. CVA. SURGICAL HISTORY : Jaw surgery. ENCOUNTER: Subsequent ACUITY: 1 day PAIN SCORE: 0/10 LOCATION: head. TECHNIQUE: Multiplanar, multisequence MRI of the brain was performed without contrast. FINDINGS: There is a small lacunar infarct that is subacute in the subinsular region on the left side. There is moderate chronic ischemic change in periventricular white matter. No mass, hemorrhage or midline [place] ft identified. No hydrocephalus. No abnormal extra-axial fluid collections. CONCLUSION: 1. Small subcentimeter acute lacunar infarct in left basal ganglia with probable extension into the l eft periventricular white matter. 2. Moderate chronic white matter ischemic changes. Manolo Her MD on July 02, 2016 at 12:37 Board Certified Radiologist. This report was verified electronically.
[2016-07-02] MEDS: ARTIFICIAL TEARS OPTH SOLN 15 ML BTL EACH EYE SCH ×2 (13:00→17:14)
[2016-07-02 16:03] LABS: HEMOGLOBIN A1a 1.1 %; HEMOGLOBIN A1b 1.5 %; HEMOGLOBIN Ao 85.1 %; HEMOGLOBIN LA1C 1.9 %; HEMOGLOBIN P3 3.8 %
[2016-07-02] MEDS: RESP: ALBUTEROL 2.5 MG/IPRATROPIUM 0.5 MG NEB (SCH) INH (20:05)
[2016-07-02] MEDS ORDERED: SODIUM CHLORIDE 0.9% FLUSH 5 ML FLUSH IVF SCH (21:00)
[2016-07-02] MEDS: DOCUSATE SODIUM 100 MG CAP PO SCH (21:52)
[2016-07-02] MEDS: ATORVASTATIN 40 MG TAB PO SCH (21:52)
[2016-07-02] MEDS: SODIUM CHLORIDE 0.9% FLUSH 5 ML FLUSH IV FLUSH SCH (21:52)
[2016-07-03] VITALS (14 sets, daily range): BP systolic 110–142; BP diastolic 70–88; PULSE 66–100; RESP 14–24; TEMP 98.1–99.3; O2SAT 98–100
[2016-07-03] MEDS: RESP: ALBUTEROL 2.5 MG/IPRATROPIUM 0.5 MG NEB (SCH) INH ×4 (04:00→21:07)
[2016-07-03] MEDS: CHLORHEXIDINE GLUCONATE 2 % 1 PACK (2 CLOTHS) TOP SCH (05:06)
[2016-07-03 05:14] LABS: BASOPHIL % 1.3 % (0.0-2.0); EOSINOPHIL # 0.2 TH/MM3 (0-0.4); EOSINOPHIL % 6.3 % (0.0-4.0); HEMATOCRIT 36.7 % (39.0-51.0); HEMO FLAGS DIFF FINAL; LYMPH % 54.7 % (9.0-44.0); LYMPHOCYTE # 2.1 TH/MM3 (1.0-4.8); MEAN CELL VOLUME 84.5 FL (80.0-100.0); MEAN CORPUSCULAR HEMOGLOBIN 27.8 PG (27.0-34.0); MEAN CORPUSCULAR HGB CONC 32.9 % (32.0-36.0); MONO % 10.2 % (0.0-8.0); NEUT % 27.5 % (16.0-70.0); PLATELET COUNT 188 TH/MM3 (150-450); RED BLOOD COUNT 4.34 MIL/MM3 (4.50-5.90); RED CELL DISTRIBUTION WIDTH 15.4 % (11.6-17.2); WHITE BLOOD COUNT 3.8 TH/MM3 (4.0-11.0)
[2016-07-03 05:24] LABS: PROTHROMBIN TIME - PATIENT 11.4 SEC (9.8-11.6)
[2016-07-03 05:29] LABS: ALT (GPT) 37 U/L (12-78); ANION GAP 9 MEQ/L (5-15); AST (GOT) 31 U/L (15-37); BICARBONATE 25.1 MEQ/L (21.0-32.0); BLOOD UREA NITROGEN 9 MG/DL (7-18); CHLORIDE 104 MEQ/L (98-107); GLOMERULAR FILTRATION RATE 91 ML/MIN (>89); POTASSIUM 3.7 MEQ/L (3.5-5.1); SODIUM (NA) 138 MEQ/L (136-145)
[2016-07-03 05:32] LABS: ALKALINE PHOSPHATASE 67 U/L (45-117); TOTAL BILIRUBIN ADULT 0.3 MG/DL (0.2-1.0)
[2016-07-03] MEDS: ACETAMINOPHEN/HYDROcodone 325 MG/5 MG TAB PO PRN ×3 (05:37→21:00)
[2016-07-03] MEDS: INSULIN ASPART SUPPLEMENTAL SCALE SQ SCH ×4 (07:00→21:00)
[2016-07-03] MEDS: DOCUSATE SODIUM 100 MG CAP PO SCH ×2 (08:47→20:58)
[2016-07-03] MEDS: ARTIFICIAL TEARS OPTH SOLN 15 ML BTL EACH EYE SCH ×3 (08:47→17:10)
[2016-07-03] MEDS: SODIUM CHLORIDE 0.9% FLUSH 5 ML FLUSH IV FLUSH SCH ×2 (08:47→20:58)
[2016-07-03] MEDS: PANTOPRAZOLE SODIUM 40 MG VIAL IV SCH (08:47)
--- NOTE | 2016-07-03 09:18 | HHI.PR ---
Review/Management Diagnosis/Plan: (1) Acute ischemic left MCA stroke Plan: s/p iv tpa -hx of hiv, multiple myeloma mri brain + left subcortical infarct ? vasculopathy vs 2/2 small vessel dz from chronic htn recs ct brain this am; if negative for ich then start aspirin 325mg qd, hep 5,000 subq bid, and can go to 5th floor with tele p.t./s.t. echo pending (2) HTN (hypertension) (3) Multiple myeloma Subjective Subjective Comments No acute events reported No headache No chest pain No dyspnea Active Medications Current Medications Medications (Trade) Dose Ordered Sig/Donna Route Start Time Stop Time Status Last Admin (Cardene Inj/NS 250 ml Inj) 260 ml @ 0 mls/hr TITRATE IV 07/02/16 11:00 (D50w (Vial) Inj) 25 ml UNSCH PRN IV PUSH 07/02/16 11:00 (Glucagon Inj) 1 mg UNSCH PRN IM/SQ 07/02/16 11:00 (NS Flush) 2 ml UNSCH PRN IV FLUSH 07/02/16 11:00 (NS Flush) 2 ml BID IV FLUSH 07/02/16 21:00 07/03/16 08:47 (Tylenol) 650 mg Q6H PRN PO 07/02/16 11:00 ([place] 5-325 Mg) 1 tab Q4H PRN PO 07/02/16 11:00 07/03/16 05:37 (Morphine Inj) 2 mg Q2H PRN IV 07/02/16 11:00 (Protonix Inj) 40 mg DAILY IV 07/03/16 09:00 07/03/16 08:47 (Tears Naturale Opth Soln) 1 drop TID EACH EYE 07/02/16 13:00 (Zofran Inj) 4 mg Q6H PRN IV 07/02/16 11:00 (Colace) 100 mg BID PO 07/02/16 21:00 07/03/16 08:47 (Senokot) 17.2 mg Q12H PRN PO 07/02/16 11:00 Miscellaneous Information 1 Q361D XX 07/02/16 11:00 07/02/16 11:00 (Chlorhexidine 2% Cloth) 3 pack Taper DAILY@04 TOP 07/03/16 04:00 06/29/17 03:59 1/5/17 05:06 Chlorhexidine Gluconate 3 pack 3 pack UNSCH PRN TOP 07/02/16 11:00 Potassium Chloride 100 ml @ 50 mls/hr Q2H PRN IV 07/02/16 11:00 (KCl 20 Meq Premix Inj) 100 ml @ 50 mls/hr Q2H PRN IV 07/02/16 11:00 Potassium Chloride 40 meq 40 meq UNSCH PRN PO/TUBE 07/02/16 11:00 Potassium Chloride 100 ml @ 25 mls/hr UNSCH PRN IV 07/02/16 11:00 Potassium Chloride 100 ml @ 50 mls/hr Q2H PRN IV 07/02/16 11:00 (Magnesium Sulfate Inj/NS Inj) 100 ml @ 50 mls/hr UNSCH PRN IV 07/02/16 11:00 Magnesium Oxide 800 mg 800 mg UNSCH PRN PO 07/02/16 11:00 (Magnesium Sulfate Inj/NS Inj) 100 ml @ 50 mls/hr UNSCH PRN IV 07/02/16 11:00 Potassium Phosphate 2000 mg 2,000 mg Q4H PRN PO 07/02/16 11:00 (Sodium Phosphate Inj/NS 250 ml Inj) 250 ml @ 42 mls/hr UNSCH PRN IV 07/02/16 11:00 (KCl 40 Meq/30 ml Liq) 40 meq UNSCH PRN PO/TUBE 07/02/16 11:00 Potassium Phosphate 2000 mg 2,000 mg UNSCH PRN PO/TUBE 07/02/16 11:00 (Potassium Phosphate Inj/NS 250 ml Inj) 260 ml @ 42 mls/hr UNSCH PRN IV 07/02/16 11:00 (Lipitor) 40 mg HS PO 07/02/16 21:00 07/02/16 21:52 Allergies Allergies Coded Allergies Penicillin (Verified Allergy, Severe, RASH, 07/02/16) Methocarbamol (Verified Allergy, Intermediate, SWELLING AROUND EYES, 07/02/16) *MDRO Multi-Drug Resistant Organism (Verified Adverse Reaction, Unknown, MRSA , 07/03/16) Review of Systems All other ROS: ROS reviewed as documented in chart Exam I&O / VS 07/02/16 07/02/16 07/03/16 15:00 23:00 07:00 Intake Total 707 ml 802 ml 480 ml Output Total 1500 ml 200 ml Balance -793 ml 602 ml 480 ml Intake Oral 200 ml 180 ml 480 ml IV Total 507 ml 622 ml Output Urine Total 1500 ml 200 ml # Voids 1 0 # Bowel Movements 0 Vital Signs Date Time Temp Pulse Resp B/P Pulse Ox O2 Delivery O2 Flow Rate FiO2 07/03/16 08:32 100 21 07/03/16 08:00 74 07/03/16 08:00 99 Nasal Cannula 2.00 07/03/16 08:00 98.1 100 14 141/70 100 07/03/16 06:00 74 07/03/16 04:00 98.8 100 24 132/88 100 07/03/16 04:00 100 07/03/16 02:00 70 07/03/16 00:00 78 07/03/16 00:00 98.6 78 14 110/70 100 07/02/16 22:00 79 07/02/16 20:05 100 Nasal Cannula 2.00 07/02/16 20:00 98.7 82 13 112/63 100 07/02/16 19:00 100 Nasal Cannula 2.00 07/02/16 18:00 85 07/02/16 16:00 98.3 82 27 121/73 100 07/02/16 14:00 85 07/02/16 12:00 100 Nasal Cannula 2.00 07/02/16 12:00 85 07/02/16 12:00 97.3 74 12 135/84 100 07/02/16 11:30 76 18 143/83 96 Nasal Cannula 3 07/02/16 11:00 77 18 96 Nasal Cannula 3 07/02/16 11:00 82 16 135/76 98 Nasal Cannula 3 07/02/16 09:39 Nasal Cannula 07/02/16 09:39 96 Nasal Cannula 2 General: Alert and Oriented, No acute distress Eye: EOMI Respiratory: Non-labored respirations Neurologic: Alert, Oriented Psychiatric: Cooperative, Appropriate mood & affect Exam Comments ox 3. follows, eomi, vff, face sym, articulate but mild dysfluency, rt arm 0/5, rt leg 2-3/5 with proportional dystaxia nihss 8 Objective Micro and Labs Laboratory Tests Test 07/02/16 07/02/16 07/03/16 10:15 14:41 04:43 Urine Color LIGHT-YELLOW Urine Turbidity CLEAR Urine pH 7.0 Urine Specific [place] 1.029 Urine Protein NEG Urine Glucose (UA) NEG Urine Ketones NEG Urine Occult Blood NEG Urine Nitrite NEG Urine Bilirubin NEG Urine Urobilinogen LESS THAN 2.0 Urine Leukocyte Esterase NEG Urine RBC LESS THAN 1 Urine WBC LESS THAN 1 Urine Squamous Epithelial <1 Cells Urine Opiates Screen NEG Urine Barbiturates Screen NEG Urine Amphetamines Screen NEG Urine Benzodiazepines Screen NEG Urine Cocaine Screen POS Urine Cannabinoids Screen NEG Nasal Screen MRSA (PCR) POSITIVE White Blood Count 3.8 Red Blood Count 4.34 Hemoglobin 12.1 Hematocrit 36.7 Mean Corpuscular Volume 84.5 Mean Corpuscular Hemoglobin 27.8 Mean Corpuscular Hemoglobin 32.9 Concent Red Cell Distribution Width 15.4 Platelet Count 188 Mean Platelet Volume 8.0 Neutrophils (%) (Auto) 27.5 Lymphocytes (%) (Auto) 54.7 Monocytes (%) (Auto) 10.2 Eosinophils (%) (Auto) 6.3 Basophils (%) (Auto) 1.3 Neutrophils # (Auto) 1.0 Lymphocytes # (Auto) 2.1 Monocytes # (Auto) 0.4 Eosinophils # (Auto) 0.2 Basophils # (Auto) 0.0 CBC Comment DIFF FINAL Differential Comment Prothrombin Time 11.4 Prothromb Time International 1.0 Ratio Activated Partial 28.0 Thromboplast Time Sodium Level 138 Potassium Level 3.7 Chloride Level 104 Carbon Dioxide Level 25.1 Anion Gap 9 Blood Urea Nitrogen 9 Creatinine 1.02 Estimat Glomerular Filtration 91 Rate Random Glucose 88 Lactic Acid Level 1.0 Calcium Level 8.6 Phosphorus Level 3.3 Magnesium Level 2.0 Total Bilirubin 0.3 Aspartate Amino Transf 31 (AST/SGOT) Alanine Aminotransferase 37 (ALT/SGPT) Alkaline Phosphatase 67 Total Protein 8.0 Albumin 2.7 Problem Qualifiers (1) HTN (hypertension): Qualified Code: I10 - Essential hypertension (2) Multiple myeloma: Qualified Code: C90.00 - Multiple myeloma, remission status unspecified Francis Mcneill MD Jul 03, 2016 09:18
--- NOTE | 2016-07-03 10:52 | RADRPT ---
EXAM DATE/TIME: 07/03/2016 10:24 [facility] COMPARISON: MRI BRAIN W/O CONTRAST, July 02, 2016, 11:36. CT BRAIN W/O CONTRAST, July 02, 2016, 9:12. INDICATIONS : Stroke alert yesterday. 24 hour post alteplase infusion. RADIATION DOSE: 39.34 CTDIvol (mGy) MEDICAL HISTORY : Cardiovascular disease. Cerebrovascular disease. Multiple myeloma. SURGICAL HISTORY : None. ENCOUNTER: Subsequent ACUITY: 2 days PAIN SCALE: 0/10 LOCATION: cranial TECHNIQUE: Multiple contiguous axial images were obtained of the head. Using automated exposure control and adj ustment of the mA and/or kV according to patient size, radiation dose was kept as low as reasonably a chievable to obtain optimal diagnostic quality images. FINDINGS: No hemorrhage or mass. Nothing to indicate acute infarction. Extracranial structures stable, benign i ntact. CONCLUSION: Stable brain appearance. No hemorrhage Kiko Kang MD on July 03, 2016 at 10:38 Board Certified Radiologist. This report was verified electronically.
--- NOTE | 2016-07-03 16:22 | HHI.CCPN ---
Subjective Remarks/Hospital Course 60-year-old AA male. Date of admission 07/02/2016. Past medical history includes HIV, hepatitis C, hypertension, depression, anxiety, COPD, diabetes, dyslipidemia, prior MD, THC, ongoing tobaccoism and chronic nausea. This individual presents to [place] emergency department with a history of prior stroke, with weakness in his right upper extremity and right lower extremity that started 1 hour prior to arrival. At approximately 820, this individual says he was sitting on the porch and when he got up to stand he realized that his right arm and right leg while working. He said his right arm and leg were working normally this morning prior to that. He says he's had a stroke in the past but has no residual deficits. In the ED, stroke or skull. CT head revealed no acute intracranial findings. CTA of the head revealed a small ICA aneurysm projecting [address] neck showed no vascular abnormalities but revealed pulmonary mass right apex that will need follow-up CT PET scan. Patient was evaluated Dr. Mcneill/neurology. NIH score was 6 with motor arm 2, motor leg 3 and 1 for limb ataxia in the right arm. Patient received alteplase with a 6 mg bolus followed by 54 mg overnight. Patient is hypertensive with systolic blood pressure 190s was started on a Cardene drip. Neurological examination is unchanged throughout the infusion. Subjective 07/03/16: Continues to have subjective weakness to the right upper and lower extremity. Repeat head CT revealed no intracranial hemorrhage. Initiating aspirin/subcutaneous heparin per neurology recommendations. Echocardiogram currently pending. Denying pain at the present time. Objective Vital Signs Date Time Temp Pulse Resp B/P Pulse Ox O2 Delivery O2 Flow Rate FiO2 07/03/16 16:00 71 07/03/16 12:00 98.3 14 136/70 100 07/03/16 08:32 21 07/03/16 08:00 Nasal Cannula 2.00 Intake and Output 07/02/16 07/02/16 07/03/16 08:00 16:00 00:00 Intake Total 707 ml 802 ml Output Total 1500 ml 200 ml Balance -793 ml 602 ml Result Diagram: 07/03/16 0443 07/03/16 0443 Imaging Last Impressions Head CT 07/03/16 0975 Signed Impressions: Service Date/Time: June 10:24 - CONCLUSION: Stable brain appearance. No hemorrhage Kiko Kang MD Neck CTA 07/02/16 0000 Signed Impressions: Service Date/Time: Saturday, July 02, 2016 09:21 - CONCLUSION: Nodular density in the right lung apex. Followup versus further elective evaluation with PET CT recommended as clinically appropriate. No significant carotid stenosis Kiko Kang MD Head CTA 07/02/16 0000 Signed Impressions: Service Date/Time: Saturday, July 02, 2016 09:21 - CONCLUSION: Tiny left ICA aneurysm. Otherwise unremarkable with no acute vascular findings. Kiko Kang MD Brain MRI 07/02/16 0000 Signed Impressions: Service Date/Time: Saturday, July 02, 2016 11:36 - CONCLUSION: 1. Small subcentimeter acute lacunar infarct in left basal ganglia with probable extension into the left periventricular white matter. 2. Moderate chronic white matter ischemic changes. Manolo Her MD Objective Remarks GENERAL: 60 -year-old AA male, critically ill currently resting in bed in no acute distress SKIN: Warm and dry. Multiple tattoos on the thorax HEAD: Atraumatic. Normocephalic. EYES: Pupils equal and round about 3 mm bilaterally and reactive. No scleral icterus. No injection or drainage. ENT: No nasal bleeding or discharge. Mucous membranes pink and moist. NECK: Trachea midline. No JVD. CARDIOVASCULAR: Regular rate and rhythm. S1, S2. No S4 without murmur RESPIRATORY: Clear to auscultation. Breath sounds equal bilaterally. GASTROINTESTINAL: Abdomen soft, non-tender, scaphoid. Hypoactive bowel sounds MUSCULOSKELETAL: Extremities without significant peripheral edema. No obvious deformities. NEUROLOGICAL: Awake and alert. No obvious cranial nerve deficits. Right motor arm 2/5. Right motor leg 1/5. Left upper and lower extremity 5/5. DTRs equal/ symmetric bilaterally. Normal sensation.. PSYCHIATRIC: Appropriate mood and affect; insight and judgment normal. A/P Assessment and Plan Neuro/Psych: Left MCA/BASAL GANGLIA CVA with right upper and lower extremity motor weakness History of CVA 2 mm left ICA aneurysm EtOH THC History of migraine headache Chronic narcotic use with Dilaudid CT head revealed no acute intracranial findings CTA head/neck revealed left ICA 2 mm saccular aneurysm. Seen by Dr. Mcneill/neurology Status post alteplase. MRI brain reveals left basal ganglia subcentimeter acute hemorrhage with extension. Patient is on thiamine 100 mg by mouth daily for EtOH use. This is been continued Patient is on Dilaudid 4 mg every 6 hours as needed for chronic pain syndrome at home. This is been held Patient is on Remeron 15 mg at night for depression. Resume clinically indicated Starting aspirin 325 mg by mouth daily. Neurology's recommendations. CV: Hypertensive urgency Congestive heart failure unknown etiology Dyslipidemia Currently on Cardene drip to maintain systolic blood pressure was 185, diastolic blood pressure less than 110. Patient is on Norvasc 5 mg by mouth daily and Lopressor 25 mg by mouth twice a day for hypertension at home. Lipitor 10 mg at night Resp: COPD Left apex mass - follow-up CT PET scan recommended Nasal cannula to maintain saturations greater than equal to 92% Incentive spirometry while awake Bronchodilator therapy every 6 hours and as needed GI: Hepatitis C Gastroesophageal reflux disease Chronic nausea Patient passed swallow evaluation. As per speech therapy Protonix 40 mg IV daily for GI prophylaxis Colace/as needed Senokot for bowel regimen Patient is on Zofran 8 mg every 8/Vistaril 12.5 mg every 12 hours for chronic nausea : BPH [place] if indicated for accurate I's and O's in a critically ill patient Endo: Diabetes mellitus Sliding-scale insulin with Accu-Cheks to maintain euglycemia. Low regimen Patient is on Humulin R sliding scale insulin to 12 units before meals/at bedtime at home Renal: Creatinine currently within normal limits. Monitor urine output closely Currently normal saline at 70 cc an hour as been discontinued Heme: Multiple myeloma Normocytic anemia Leukocytosis Follow CBC in a.m. Coags within normal limits Patient is on Decadron 40 mg every for his Velcade therapy. Received with Dr. Bradly Lopez.. ID: HIV Patient is on Ziagen 600 mg every 12 hours, Prezista 800 mg daily, Isentress 400 mg by mouth every 12 hours and Norvir 100 mg by mouth twice a day. Resume when clinically indicated Patient is on Daraprim 50 mg by mouth daily for toxoplasmosis prophylaxis Follow-up UA FEN: Replace electrolytes as clinically indicated per electrolyte protocol MSK: Chronic low back pain Osteoporosis/osteoarthritis PT/OT evaluate and treat. Access - Utilize peripheral IV. Central if indicated Prophylaxis - GI - Protonix - DVT - SCD/heparin 5000 units subcutaneous twice a day Critical Care: The total care time was 35 minutes. Time to perform other separately billable procedures was not included in the critical care time. Patient is stable from a clinical standpoint. We'll assign to the hospitalist in a.m. 07/04/2016. Claudio Kahn MD Jul 03, 2016 16:22
[2016-07-03] MEDS ORDERED: hydrOXYzine HCL 25 MG TAB PO PRN (17:15)
--- NOTE | 2016-07-03 17:42 | EC ---
Study Study Date:07/03/2016 STUDY CONCLUSIONS SUMMARY - Left ventricle: The cavity size was normal. Wall thickness was normal. Systolic function was normal. The estimated ejection fraction was in the range of 50% to 55%. Wall motion was normal; there were no regional wall motion abnormalities. - Pulmonary arteries: PA peak pressure: 38mm Hg (S). If LV function is below 40, please consider prescribing an ACEI or ARB or document rationale for non-use. PROCEDURE DATA STUDY STATUS: Elective. Procedure: Transthoracic echocardiography. Image quality was good. Scanning was performed from the parasternal, apical, and subcostal acoustic windows. Study completion: The patient tolerated the procedure well. Transthoracic echocardiography. M-mode, complete 2D, complete spectral Doppler, and color Doppler. Patient status: Inpatient. CARDIAC ANATOMY LEFT VENTRICLE: The cavity size was normal. Wall thickness was normal. Systolic function was normal. The estimated ejection fraction was in the range of 50% to 55%. Wall motion was normal; there were no regional wall motion abnormalities. AORTIC VALVE: Trileaflet; normal thickness leaflets. Doppler: Transvalvular velocity was within the normal range. There was no stenosis. No regurgitation. AORTA: Aortic root: The aortic root was normal in size. MITRAL VALVE: Structurally normal valve. Doppler: Transvalvular velocity was within the normal range. There was no evidence for stenosis. Trace regurgitation. Peak gradient: 3mm Hg (D). LEFT ATRIUM: The atrium was normal in size. RIGHT VENTRICLE: The cavity size was normal. Wall thickness was normal. PULMONIC VALVE: Doppler: Transvalvular velocity was within the normal range. There was no evidence for stenosis. No regurgitation. TRICUSPID VALVE: Structurally normal valve. Doppler: Transvalvular velocity was within the normal range. Trace regurgitation. PULMONARY ARTERY: The main pulmonary artery was normal-sized. Systolic pressure was within the normal range. RIGHT ATRIUM: The atrium was normal in size. PERICARDIUM: There was no pericardial effusion. SYSTEMIC VEINS: Inferior vena cava: The vessel was normal in size. BASIC MEASUREMENTS ADULT NORMAL Left ventricle LV internal dimension, ED, chordal level, 45.8 mm 43-52 PLAX LV posterior wall thickness, ED 8.34 mm IVS/LVPW ratio, ED 1.12 <1.3 Ventricular septum Septal thickness, ED 9.37 mm Aortic valve Leaflet separation 23 mm 15-26 Left atrium Anterior-posterior dimension 38 mm Right ventricle RV internal dimension, ED, PLAX 20 mm 19-38 BASIC MEASUREMENTS ADULT NORMAL Aortic valve Leaflet separation 23 mm 15-26 Aorta Root diameter, ED *38 mm 20-37 DOPPLER MEASUREMENTS ADULT NORMAL Main pulmonary artery Pressure, S *38 mm Hg =30 Mitral valve Peak E-wave velocity 87.9 cm/s Peak A-wave velocity 79 cm/s Peak gradient, D 3 mm Hg Peak E/A ratio 1.1 Tricuspid valve Regurgitant peak velocity 236 cm/s Peak RV-RA gradient, S 22 mm Hg Maximal regurgitant velocity 236 cm/s Systemic veins Estimated CVP 10 mm Hg Right ventricle RV pressure, S *38 mm Hg <30 LEGEND: Mean values are shown as u=mean value. Asterisk (*) ptaterson values outside specified normal range. Prepared and signed by Adiel Barraza [id number]
[2016-07-03] MEDS: ASPIRIN 325 MG TAB PO SCH (17:44)
[2016-07-03] MEDS: MUPIROCIN 2% OINT 1 APPLIC/GM SYR NASAL SCH (20:58)
[2016-07-03] MEDS: RALTEGRAVIR 400 MG TAB PO SCH (20:58)
[2016-07-03] MEDS: HEPARIN SODIUM - SQ 10,000 UNITS/ML VIAL SQ SCH (20:58)
[2016-07-03] MEDS: ABACAVIR SULFATE 300 MG TAB PO SCH (20:59)
[2016-07-03] MEDS: METOPROLOL TARTRATE 25 MG TAB PO SCH (20:59)
[2016-07-03] MEDS: RITONAVIR 100 MG TAB PO SCH (20:59)
[2016-07-03] MEDS: ATORVASTATIN 40 MG TAB PO SCH (20:59)
[2016-07-03] MEDS: MIRTAZAPINE 15 MG TAB PO SCH (20:59)
[2016-07-04] VITALS (9 sets, daily range): BP systolic 113–130; BP diastolic 71–79; PULSE 62–94; RESP 18–26; TEMP 96.7–99.7; O2SAT 98–100
[2016-07-04] MEDS: CHLORHEXIDINE GLUCONATE 2 % 1 PACK (2 CLOTHS) TOP SCH (04:00)
[2016-07-04] MEDS: RESP: ALBUTEROL 2.5 MG/IPRATROPIUM 0.5 MG NEB (SCH) INH ×4 (04:47→21:07)
[2016-07-04] MEDS: INSULIN ASPART SUPPLEMENTAL SCALE SQ SCH ×3 (05:42→21:00)
--- NOTE | 2016-07-04 08:21 | HHI.PR ---
Review/Management Diagnosis/Plan: (1) Acute ischemic left MCA stroke Plan: s/p iv tpa -hx of hiv, multiple myeloma mri brain + left subcortical infarct ? vasculopathy vs 2/2 small vessel dz from chronic htn recs on aspirin/statin bp control tobacco cessation needs to f/u with his onc re: myeloma and recent stroke rehab, d/c planning (2) HTN (hypertension) (3) Multiple myeloma Subjective Subjective Comments No acute events reported No headache No chest pain No dyspnea Active Medications Current Medications Medications (Trade) Dose Ordered Sig/Donna Route Start Time Stop Time Status Last Admin (D50w (Vial) Inj) 25 ml UNSCH PRN IV PUSH 07/02/16 11:00 (Glucagon Inj) 1 mg UNSCH PRN IM/SQ 07/02/16 11:00 (NS Flush) 2 ml UNSCH PRN IV FLUSH 07/02/16 11:00 (NS Flush) 2 ml BID IV FLUSH 07/02/16 21:00 07/03/16 20:58 (Tylenol) 650 mg Q6H PRN PO 07/02/16 11:00 ([place]ward 5-325 Mg) 1 tab Q4H PRN PO 07/02/16 11:00 07/03/16 21:00 (Morphine Inj) 2 mg Q2H PRN IV 07/02/16 11:00 (Protonix Inj) 40 mg DAILY IV 07/03/16 09:00 07/03/16 08:47 (Tears Naturale Opth Soln) 1 drop TID EACH EYE 07/02/16 13:00 07/03/16 17:10 (Zofran Inj) 4 mg Q6H PRN IV 07/02/16 11:00 (Colace) 100 mg BID PO 07/02/16 21:00 07/03/16 20:58 (Senokot) 17.2 mg Q12H PRN PO 07/02/16 11:00 Miscellaneous Information 1 Q361D XX 07/02/16 11:00 07/02/16 11:00 (Chlorhexidine 2% Cloth) 3 pack Taper DAILY@04 TOP 07/03/16 04:00 06/29/17 03:59 07/03/16 05:06 (Chlorhexidine 2% Cloth) 3 pack UNSCH PRN TOP 07/02/16 11:00 (Lipitor) 40 mg HS PO 07/02/16 21:00 07/03/16 20:59 (Bactroban Nasal 2% Oint) 1 applic BID NASAL 07/03/16 21:00 07/03/16 20:58 (Aspirin) 325 mg DAILY PO 07/03/16 17:00 07/03/16 17:44 (Heparin Inj) 5,000 units Q12HR SQ 07/03/16 21:00 07/03/16 20:58 (Daraprim) 50 mg DAILY PO 07/04/16 09:00 (Remeron) 15 mg HS PO 07/03/16 21:00 07/03/16 20:59 (Ziagen) 600 mg Q12HR PO 07/03/16 21:00 07/03/16 20:59 (Prezista) 800 mg DAILY PO 07/04/16 09:00 (Isentress) 400 mg BID PO 07/03/16 21:00 07/03/16 20:58 (Norvir) 100 mg BID PO 07/03/16 21:00 07/03/16 20:59 (Vitamin B1) 100 mg DAILY PO 07/04/16 09:00 (Atarax) 12.5 mg Q8H PRN PO 07/03/16 17:15 (Lopressor) 12.5 mg Q12HR PO 07/03/16 21:00 07/03/16 20:59 Allergies Allergies Coded Allergies Penicillin (Verified Allergy, Severe, RASH, 07/02/16) Methocarbamol (Verified Allergy, Intermediate, SWELLING AROUND EYES, 07/02/16) *MDRO Multi-Drug Resistant Organism (Verified Adverse Reaction, Unknown, MRSA , 07/03/16) Review of Systems All other ROS: ROS reviewed as documented in chart Exam I&O / VS 07/03/16 07/03/16 07/04/16 15:00 23:00 07:00 Intake Total 400 ml 480 ml 240 ml Output Total 300 ml 200 ml Balance 100 ml 280 ml 240 ml Intake Oral 400 ml 480 ml 240 ml Output Urine Total 300 ml 200 ml # Voids 2 # Bowel Movements 0 Vital Signs Date Time Temp Pulse Resp B/P Pulse Ox O2 Delivery O2 Flow Rate FiO2 07/04/16 04:00 97.4 62 20 130/79 100 07/04/16 00:00 99.7 74 26 113/73 98 07/04/16 00:00 74 07/03/16 22:00 78 07/03/16 21:07 99 21 07/03/16 20:00 66 07/03/16 20:00 99.3 79 14 142/74 99 07/03/16 19:00 98 Room Air 07/03/16 18:00 84 07/03/16 16:00 99.3 80 14 126/73 98 07/03/16 16:00 71 07/03/16 14:00 74 07/03/16 12:00 71 07/03/16 12:00 98.3 94 14 136/70 100 07/03/16 10:00 74 07/03/16 08:32 100 21 General: Alert and Oriented, No acute distress Eye: EOMI Respiratory: Non-labored respirations Neurologic: Alert, Oriented Psychiatric: Cooperative, Appropriate mood & affect Exam Comments ox 3. follows, eomi, vff, face sym, articulate, rt arm 0/5, rt leg 2-3/5 with proportional dystaxia nihss 6 Problem Qualifiers (1) HTN (hypertension): Qualified Code: I10 - Essential hypertension (2) Multiple myeloma: Qualified Code: C90.00 - Multiple myeloma, remission status unspecified Francis Mcneill MD Jul 04, 2016 08:21
[2016-07-04] MEDS: DARUNAVIR 800 MG TAB PO SCH (09:00)
[2016-07-04] MEDS: ABACAVIR SULFATE 300 MG TAB PO SCH ×2 (09:00→21:24)
[2016-07-04] MEDS: PANTOPRAZOLE SODIUM 40 MG VIAL IV SCH (09:00)
[2016-07-04] MEDS: MUPIROCIN 2% OINT 1 APPLIC/GM SYR NASAL SCH ×2 (09:00→21:24)
[2016-07-04] MEDS: SODIUM CHLORIDE 0.9% FLUSH 5 ML FLUSH IV FLUSH SCH ×2 (09:00→21:23)
[2016-07-04] MEDS: HEPARIN SODIUM - SQ 10,000 UNITS/ML VIAL SQ SCH ×2 (09:00→21:23)
[2016-07-04] MEDS: PYRIMETHAMINE 25 MG PO SCH (09:00)
[2016-07-04] MEDS: ARTIFICIAL TEARS OPTH SOLN 15 ML BTL EACH EYE SCH ×3 (10:09→18:00)
[2016-07-04] MEDS: THIAMINE HCL 100 MG TAB PO SCH (10:09)
[2016-07-04] MEDS: RALTEGRAVIR 400 MG TAB PO SCH ×2 (10:09→21:23)
[2016-07-04] MEDS: METOPROLOL TARTRATE 25 MG TAB PO SCH ×2 (10:10→21:24)
[2016-07-04] MEDS: ASPIRIN 325 MG TAB PO SCH (10:10)
[2016-07-04] MEDS: RITONAVIR 100 MG TAB PO SCH ×2 (10:10→21:23)
[2016-07-04] MEDS: DOCUSATE SODIUM 100 MG CAP PO SCH ×2 (10:10→21:24)
--- NOTE | 2016-07-04 11:08 | HHI.PR ---
Subjective Remarks Patient seen in follow-up for acute CVA and multiple comorbid conditions listed below. He reports that he is feeling okay. Still with persistent right sided paralysis. He understand and agreed that he will need rehabilitation. Objective Vitals Vital Signs Date Time Temp Pulse Resp B/P Pulse Ox O2 Delivery O2 Flow Rate FiO2 07/04/16 10:33 98 21 07/04/16 08:33 96.7 77 20 123/77 100 07/04/16 04:00 97.4 62 20 130/79 100 07/04/16 00:00 99.7 74 26 113/73 98 07/04/16 00:00 74 07/03/16 22:00 78 07/03/16 21:07 99 21 07/03/16 20:00 66 07/03/16 20:00 99.3 79 14 142/74 99 07/03/16 19:00 98 Room Air 07/03/16 18:00 84 07/03/16 16:00 99.3 80 14 126/73 98 07/03/16 16:00 71 07/03/16 14:00 74 07/03/16 12:00 71 07/03/16 12:00 98.3 94 14 136/70 100 I/O 07/03/16 07/03/16 07/03/16 07/04/16 07/04/16 07/04/16 07:00 15:00 23:00 07:00 15:00 23:00 Intake Total 480 ml 400 ml 480 ml 240 ml Output Total 300 ml 200 ml Balance 480 ml 100 ml 280 ml 240 ml Intake Oral 480 ml 400 ml 480 ml 240 ml Output Urine Total 300 ml 200 ml # Voids 0 2 # Bowel Movements 0 0 Result Diagram: 07/03/16 0443 07/03/16 0443 Imaging Last Impressions Head CT 07/03/16 0950 Signed Impressions: Service Date/Time: June 10:24 - CONCLUSION: Stable brain appearance. No hemorrhage Kiko Kang MD Neck CTA 07/02/16 0000 Signed Impressions: Service Date/Time: Saturday, July 02, 2016 09:21 - CONCLUSION: Nodular density in the right lung apex. Followup versus further elective evaluation with PET CT recommended as clinically appropriate. No significant carotid stenosis Kiko Kang MD Head CTA 1/4/17 0000 Signed Impressions: Service Date/Time: Saturday, July 02, 2016 09:21 - CONCLUSION: Tiny left ICA aneurysm. Otherwise unremarkable with no acute vascular findings. Kiko Kang MD Brain MRI 07/02/16 Signed Impressions: Service Date/Time: Saturday, July 02, 2016 11:36 - CONCLUSION: 1. Small subcentimeter acute lacunar infarct in left basal ganglia with probable extension into the left periventricular white matter. 2. Moderate chronic white matter ischemic changes. Manolo Her MD Objective Remarks GENERAL: This is a well-nourished, well-developed patient, in no apparent distress. CARDIOVASCULAR: Normal rate and regular rhythm without murmurs, gallops, or rubs. RESPIRATORY: Good respiratory efforts. Breath sounds equal and clear to auscultation bilaterally. GASTROINTESTINAL: Abdomen soft, non-tender, non-distended. Normal active bowel sounds MUSCULOSKELETAL: Extremities without cyanosis, or edema. NEURO: Alert & Oriented. Normal speech. Right upper extremity paralysis, right lower extremity to out of 5 strength. 5 out of 5 strength on the left side PSYCH: Appropriate mood and affect. A/P Problem List: (1) Stroke ICD Code: I63.9 Status: Acute (2) Acute ischemic left MCA stroke ICD Code: I63.512 Status: Acute (3) Multiple myeloma ICD Code: C90.00 Status: Acute (4) HTN (hypertension) ICD Code: I10 Status: Acute (5) Diabetes ICD Code: E11.9 Status: Acute (6) Chronic back pain ICD Code: G89.29 Status: Acute (7) COPD (chronic obstructive pulmonary disease) ICD Code: J44.9 Status: Acute (8) GERD (gastroesophageal reflux disease) ICD Code: K21.9 Status: Acute (9) Anxiety and depression ICD Code: F41.8 Status: Acute (10) High cholesterol ICD Code: E78.0 Status: Acute (11) HCV (hepatitis C virus) ICD Code: B19.20 Status: Acute (12) HIV (human immunodeficiency virus infection) ICD Code: Z21 Status: Acute (13) CAD (coronary artery disease) ICD Code: I25.10 Status: Acute (14) Compression fracture of lumbar vertebra ICD Code: S32.000A Status: Acute (15) Tetrahydrocannabinol (THC) use disorder, mild, abuse ICD Code: F12.10 Status: Acute (16) Tobacco abuse ICD Code: Z72.0 Status: Acute Assessment and Plan 60-year-old AA male. Date of admission 07/02/2016. Past medical history includes HIV, hepatitis C, hypertension, depression, anxiety, COPD, diabetes, dyslipidemia, prior UT, THC, ongoing tobaccoism and chronic nausea. This individual presents to [place] emergency department with a history of prior stroke, with weakness in his right upper extremity and right lower extremity that started 1 hour prior to arrival. Patient received alteplase. Left MCA/BASAL GANGLIA CVA with right upper and lower extremity motor weakness History of CVA 2 mm left ICA aneurysm EtOH THC History of migraine headache Chronic narcotic use with Dilaudid CT head revealed no acute intracranial findings CTA head/neck revealed left ICA 2 mm saccular aneurysm. Seen by Dr. Mcneill/neurology Status post alteplase. MRI brain reveals left basal ganglia subcentimeter acute hemorrhage with extension. Patient is on thiamine 100 mg by mouth daily for EtOH use. This is been continued Patient is on Remeron 15 mg at night for depression. Resume clinically indicated Aspirin 325 mg by mouth daily. Neurology's recommendations. Hypertension Congestive heart failure unknown etiology Norvasc 5 mg by mouth daily and Lopressor 25 mg by mouth twice a day for hypertension at home. Lipitor 10 mg at night COPD Left apex mass - follow-up CT PET scan recommended Nasal cannula to maintain saturations greater than equal to 92% Incentive spirometry while awake Bronchodilator therapy every 6 hours and as needed Hepatitis C Gastroesophageal reflux disease Chronic nausea Patient passed swallow evaluation. As per speech therapy Protonix 40 mg IV daily for GI prophylaxis Colace/as needed Senokot for bowel regimen Patient is on Zofran 8 mg every 8/Vistaril 12.5 mg every 12 hours for chronic nausea Diabetes mellitus Sliding-scale insulin with Accu-Cheks to maintain euglycemia. Low regimen Patient is on Humulin R sliding scale insulin to 12 units before meals/at bedtime at home Multiple myeloma Normocytic anemia Leukocytosis Follow CBC in a.m. Coags within normal limits Patient is on Decadron 40 mg every for his Velcade therapy. Received with Dr. Bradly Lopez.. HIV Patient is on Ziagen 600 mg every 12 hours, Prezista 800 mg daily, Isentress 400 mg by mouth every 12 hours and Norvir 100 mg by mouth twice a day. Resume when clinically indicated Patient is on Daraprim 50 mg by mouth daily for toxoplasmosis prophylaxis Chronic low back pain Osteoporosis/osteoarthritis PT/OT evaluate and treat. Prophylaxis - GI - Protonix - DVT - SCD/heparin 5000 units subcutaneous twice a day Discharge Planning Need rehabilitation. Case management consulted. Problem Qualifiers (1) Stroke: Qualified Code: I63.9 - Cerebrovascular accident (CVA), unspecified mechanism (2) Multiple myeloma: Qualified Code: C90.00 - Multiple myeloma, remission status unspecified (3) HTN (hypertension): Qualified Code: I10 - Essential hypertension (4) Diabetes: Qualified Code: E11.8 - Type 2 diabetes mellitus with complication, without long-term current use of insulin (5) Chronic back pain: Qualified Code: M54.5 - Chronic bilateral low back pain without sciatica (6) COPD (chronic obstructive pulmonary disease): Qualified Code: J44.9 - Chronic obstructive pulmonary disease, unspecified COPD type (7) HCV (hepatitis C virus): Qualified Code: B18.2 - Chronic hepatitis C without hepatic coma (8) CAD (coronary artery disease): Qualified Code: I25.10 - Coronary artery disease involving [place] heart without angina pectoris, unspecified vessel or lesion type (9) Compression fracture of lumbar vertebra: Qualified Code: S32.000D - Compression fracture of lumbar vertebra, with routine healing, subsequent encounter Jeremiah Najera MD Jul 04, 2016 11:08 Chronic low back pain Osteoporosis/osteoarthritis PT/OT evaluate and treat. Access - Utilize peripheral IV. Central if indicated Prophylaxis - GI - Protonix - DVT - SCD/heparin 5000 units subcutaneous twice a day Problem Qualifiers (1) Stroke: Qualified Code: I63.9 - Cerebrovascular accident (CVA), unspecified mechanism (2) Multiple myeloma: Qualified Code: C90.00 - Multiple myeloma, remission status unspecified (3) HTN (hypertension): Qualified Code: I10 - Essential hypertension (4) Diabetes: Qualified Code: E11.8 - Type 2 diabetes mellitus with complication, without long-term current use of insulin (5) Chronic back pain: Qualified Code: M54.5 - Chronic bilateral low back pain without sciatica (6) COPD (chronic obstructive pulmonary disease): Qualified Code: J44.9 - Chronic obstructive pulmonary disease, unspecified COPD type (7) HCV (hepatitis C virus): Qualified Code: B18.2 - Chronic hepatitis C without hepatic coma (8) CAD (coronary artery disease): Qualified Code: I25.10 - Coronary artery disease involving [place] heart without angina pectoris, unspecified vessel or lesion type (9) Compression fracture of lumbar vertebra: Qualified Code: S32.000D - Compression fracture of lumbar vertebra, with routine healing, subsequent encounter Jeremiah Najera MD Jul 04, 2016 11:08
[2016-07-04] MEDS: MIRTAZAPINE 15 MG TAB PO SCH (21:23)
[2016-07-04] MEDS: ATORVASTATIN 40 MG TAB PO SCH (21:23)
[2016-07-05] VITALS (9 sets, daily range): BP systolic 103–142; BP diastolic 61–89; PULSE 79–91; RESP 18–20; TEMP 97.2–99; O2SAT 96–100
[2016-07-05] MEDS: CHLORHEXIDINE GLUCONATE 2 % 1 PACK (2 CLOTHS) TOP SCH ×2 (04:00→21:41)
[2016-07-05] MEDS: RESP: ALBUTEROL 2.5 MG/IPRATROPIUM 0.5 MG NEB (SCH) INH ×3 (05:25→19:39)
[2016-07-05] MEDS: INSULIN ASPART SUPPLEMENTAL SCALE SQ SCH ×4 (07:00→21:00)
[2016-07-05] MEDS: ARTIFICIAL TEARS OPTH SOLN 15 ML BTL EACH EYE SCH ×3 (09:00→16:39)
[2016-07-05] MEDS: PYRIMETHAMINE 25 MG PO SCH (09:00)
[2016-07-05] MEDS: ABACAVIR SULFATE 300 MG TAB PO SCH ×2 (10:25→21:39)
[2016-07-05] MEDS: THIAMINE HCL 100 MG TAB PO SCH (10:25)
[2016-07-05] MEDS: ASPIRIN 325 MG TAB PO SCH (10:25)
[2016-07-05] MEDS: DOCUSATE SODIUM 100 MG CAP PO SCH ×2 (10:25→21:00)
[2016-07-05] MEDS: DARUNAVIR 800 MG TAB PO SCH (10:26)
[2016-07-05] MEDS: RITONAVIR 100 MG TAB PO SCH ×2 (10:26→21:39)
[2016-07-05] MEDS: PANTOPRAZOLE SODIUM 40 MG VIAL IV SCH (10:26)
[2016-07-05] MEDS: RALTEGRAVIR 400 MG TAB PO SCH ×2 (10:26→21:38)
[2016-07-05] MEDS: METOPROLOL TARTRATE 25 MG TAB PO SCH ×2 (10:26→21:40)
[2016-07-05] MEDS: MUPIROCIN 2% OINT 1 APPLIC/GM SYR NASAL SCH ×2 (10:26→21:00)
[2016-07-05] MEDS: HEPARIN SODIUM - SQ 10,000 UNITS/ML VIAL SQ SCH ×2 (10:26→21:41)
[2016-07-05] MEDS: SODIUM CHLORIDE 0.9% FLUSH 5 ML FLUSH IV FLUSH SCH ×2 (10:27→21:41)
[2016-07-05] MEDS: ACETAMINOPHEN/HYDROcodone 325 MG/5 MG TAB PO PRN ×2 (10:58→21:59)
[2016-07-05] MEDS ORDERED: ASPI325T PO (11:39)
[2016-07-05] MEDS ORDERED: LIPI40TA PO (11:39)
[2016-07-05] MEDS ORDERED: METO25TA3 PO (11:39)
[2016-07-05] MEDS ORDERED: HYDR-3516 PO (11:39)
--- NOTE | 2016-07-05 11:40 | HHI.DS ---
Discharge Summary Admission Date Jul 02, 2016 at 09:59 Discharge Date: Jul 05, 2016 Admitting Diagnosis stroke (1) Stroke ICD Code: I63.9 Diagnosis: Principal (2) Acute ischemic left MCA stroke ICD Code: I63.512 Diagnosis: Principal (3) Multiple myeloma ICD Code: C90.00 (4) HTN (hypertension) ICD Code: I10 Diagnosis: Principal (5) Diabetes ICD Code: E11.9 Diagnosis: Principal (6) Chronic back pain ICD Code: G89.29 Diagnosis: Principal (7) COPD (chronic obstructive pulmonary disease) ICD Code: J44.9 Diagnosis: Principal (8) GERD (gastroesophageal reflux disease) ICD Code: K21.9 Diagnosis: Principal (9) Anxiety and depression ICD Code: F41.8 Diagnosis: Principal (10) High cholesterol ICD Code: E78.0 Diagnosis: Principal (11) HCV (hepatitis C virus) ICD Code: B19.20 Diagnosis: Principal (12) HIV (human immunodeficiency virus infection) ICD Code: Z21 Diagnosis: Principal (13) CAD (coronary artery disease) ICD Code: I25.10 Diagnosis: Principal (14) Compression fracture of lumbar vertebra ICD Code: S32.000A Diagnosis: Principal (15) Tetrahydrocannabinol (THC) use disorder, mild, abuse ICD Code: F12.10 Diagnosis: Principal (16) Tobacco abuse ICD Code: Z72.0 Diagnosis: Principal Procedures Alteplase administration. Brief History - From Admission 60-year-old AA male. Date of admission 07/02/2016. Past medical history includes HIV, hepatitis C, hypertension, depression, anxiety, COPD, diabetes, dyslipidemia, prior CT, THC, ongoing tobaccoism and chronic nausea. This individual presents to [place] emergency department with a history of prior stroke, with weakness in his right upper extremity and right lower extremity that started 1 hour prior to arrival. At approximately 820, this individual says he was sitting on the porch and when he got up to stand he realized that his right arm and right leg while working. He said his right arm and leg were working normally this morning prior to that. He says he's had a stroke in the past but has no residual deficits. In the ED, stroke or skull. CT head revealed no acute intracranial findings. CTA of the head revealed a small ICA aneurysm projecting [address] neck showed no vascular abnormalities but revealed pulmonary mass right apex that will need follow-up CT PET scan. Patient was evaluated Dr. Mcneill/neurology. NIH score was 6 with motor arm 2, motor leg 3 and 1 for limb ataxia in the right arm. Patient received alteplase with a 6 mg bolus followed by 54 mg overnight. Patient is hypertensive with systolic blood pressure 190s was started on a Cardene drip. Neurological examination is unchanged throughout the infusion. CBC/BMP: 07/03/16 0443 07/03/16 0443 Significant Findings Laboratory Tests Test 07/03/16 04:43 White Blood Count 3.8 TH/MM3 (4.0-11.0) Red Blood Count 4.34 MIL/MM3 (4.50-5.90) Hemoglobin 12.1 GM/DL (13.0-17.0) Hematocrit 36.7 % (39.0-51.0) Lymphocytes (%) (Auto) 54.7 % (9.0-44.0) Monocytes (%) (Auto) 10.2 % (0.0-8.0) Eosinophils (%) (Auto) 6.3 % (0.0-4.0) Neutrophils # (Auto) 1.0 TH/MM3 (1.8-7.7) Albumin 2.7 GM/DL (3.4-5.0) Imaging Last Impressions Head CT 07/03/16 0950 Signed Impressions: Service Date/Time: June 10:24 - CONCLUSION: Stable brain appearance. No hemorrhage Kiko Kang MD Neck CTA 07/02/16 0000 Signed Impressions: Service Date/Time: Saturday, July 02, 2016 09:21 - CONCLUSION: Nodular density in the right lung apex. Followup versus further elective evaluation with PET CT recommended as clinically appropriate. No significant carotid stenosis Kiko Kang MD Head CTA 07/02/16 0000 Signed Impressions: Service Date/Time: Saturday, July 02, 2016 09:21 - CONCLUSION: Tiny left ICA aneurysm. Otherwise unremarkable with no acute vascular findings. Kiko Kang MD Brain MRI 07/02/16 0000 Signed Impressions: Service Date/Time: Saturday, July 02, 2016 11:36 - CONCLUSION: 1. Small subcentimeter acute lacunar infarct in left basal ganglia with probable extension into the left periventricular white matter. 2. Moderate chronic white matter ischemic changes. Manolo Her MD PE at Discharge GENERAL: This is a well-nourished, well-developed patient, in no apparent distress. CARDIOVASCULAR: Normal rate and regular rhythm without murmurs, gallops, or rubs. RESPIRATORY: Good respiratory efforts. Breath sounds equal and clear to auscultation bilaterally. GASTROINTESTINAL: Abdomen soft, non-tender, non-distended. Normal active bowel sounds MUSCULOSKELETAL: Extremities without cyanosis, or edema. NEURO: Alert & Oriented. Normal speech. Right upper extremity paralysis, right lower extremity to out of 5 strength. 5 out of 5 strength on the left side PSYCH: Appropriate mood and affect. Pt update on day of discharge Patient reports that he is feeling okay. Still having right upper extreme to paralysis. He is gaining some strength in the right lower extremity. Hospital Course 60-year-old AA male. Date of admission 07/02/2016. Past medical history includes HIV, hepatitis C, hypertension, depression, anxiety, COPD, diabetes, dyslipidemia, prior CT, THC, ongoing tobaccoism and chronic nausea. This individual presents to [place] emergency department with a history of prior stroke, with weakness in his right upper extremity and right lower extremity that started 1 hour prior to arrival. Patient received alteplase. Evaluation and treatment course detailed below: Left MCA/BASAL GANGLIA CVA with right upper and lower extremity motor weakness History of CVA 2 mm left ICA aneurysm EtOH THC History of migraine headache Chronic narcotic use with Dilaudid CT head revealed no acute intracranial findings CTA head/neck revealed left ICA 2 mm saccular aneurysm. Seen by Dr. Mcneill/neurology Status post alteplase. MRI brain reveals left basal ganglia subcentimeter acute hemorrhage with extension. Patient is on thiamine 100 mg by mouth daily for EtOH use. This is been continued Patient is on Remeron 15 mg at night for depression. Resume clinically indicated Aspirin 325 mg by mouth daily. Neurology's recommendations. Hypertension Congestive heart failure unknown etiology Norvasc 5 mg by mouth daily and Lopressor 25 mg by mouth twice a day for hypertension at home. Lipitor 10 mg at night COPD Left apex mass - follow-up CT PET scan recommended Nasal cannula to maintain saturations greater than equal to 92% Incentive spirometry while awake Bronchodilator therapy every 6 hours and as needed Hepatitis C Gastroesophageal reflux disease Chronic nausea Patient passed swallow evaluation. As per speech therapy Protonix 40 mg IV daily for GI prophylaxis Colace/as needed Senokot for bowel regimen Patient is on Zofran 8 mg every 8/Vistaril 12.5 mg every 12 hours for chronic nausea Diabetes mellitus Sliding-scale insulin with Accu-Cheks to maintain euglycemia. Low regimen Patient is on Humulin R sliding scale insulin to 12 units before meals/at bedtime at home Multiple myeloma Normocytic anemia Leukocytosis Follow CBC in a.m. Coags within normal limits Patient is on Decadron 40 mg every for his Velcade therapy. Received with Dr. Bradly Lopez.. HIV Patient is on Ziagen 600 mg every 12 hours, Prezista 800 mg daily, Isentress 400 mg by mouth every 12 hours and Norvir 100 mg by mouth twice a day. Resume when clinically indicated Patient is on Daraprim 50 mg by mouth daily for toxoplasmosis prophylaxis. Pt Condition on Discharge: Stable Discharge Disposition: Discharge to SNF Discharge Time: > 30 minutes Discharge Instructions DIET: Follow Instructions for: Heart Healthy Diet Activities you can perform: See Additionl Instruction Other Activity Instructions: Per PT instructions New Medications: Aspirin (Aspirin) 325 Mg Tab 325 MG PO DAILY #30 TAB Atorvastatin (Lipitor) 40 Mg Tab 40 MG PO HS #30 TAB Hydrocodone-Acetaminophen (Hydrocodone-Acetaminophen) 5-325 mg Tab 1 TAB PO Q4H PRN PAIN GREATER THAN 5 #20 TAB Changed Medications: Metoprolol Tartrate (Metoprolol Tartrate) 25 Mg Tab 12.5 MG PO BID #60 Ref 0 TAB (Changed from: 6.25 MG) Continued Medications: Abacavir (Ziagen) 300 Mg Tab 600 MG PO Q12HR Hazardous agent; use appropriate precautions for handling & disposal. Mgmt Viral Infection #60 Ref 0 TAB Albuterol 18 GM Inh (Ventolin Hfa 18 GM Inh) 90 Mcg/Act Aer 2 PUFF INH Q4H PRN SHORTNESS OF BREATH #1 Ref 0 INHALER Amlodipine (Amlodipine) 5 Mg Tab 5 MG PO DAILY Blood Pressure Management #30 Ref 0 TAB Darunavir (Prezista) 800 Mg Tab 800 MG PO DAILY Mgmt Viral Infection #30 Ref 0 TAB Dexamethasone (Dexamethasone) 4 Mg Tab 40 MG PO WEEKLY ON THURSDAYS #120 Ref 0 TAB Mirtazapine (Mirtazapine) 15 Mg Tab 15 MG PO HS Depression Control #30 Ref 0 TAB Pyrimethamine (Daraprim) 25 Mg Tab 50 MG PO DAILY #30 Ref 0 TAB Raltegravir (Isentress) 400 Mg Tab 400 MG PO Q12HR Mgmt Viral Infection #60 Ref 0 TAB Ritonavir (Norvir) 100 Mg Cap 100 MG PO BID Mgmt Viral Infection #180 Ref 0 CAP Thiamine (Thiamine) 100 Mg Tab 100 MG PO DAILY Nutritional Supplement Ref 0 TAB Discontinued Medications: Furosemide (Lasix) 20 Mg Tab 20 MG PO DAILY #30 Ref 0 TAB Guaifenesin (Mucus-ER) 600 Mg Tab 600 MG PO BID Guaifenesin Alc Free-SF Liq (Siltussin Trniidad Alc Free-SF Liq) 100 Mg/5 Ml Liq 10 ML PO Q12HR Hydromorphone (Dilaudid) 4 Mg Tab 4 MG PO Q6H PRN Pain Management Ref 0 TAB Hydroxyzine Pamoate (Vistaril) 25 Mg Cap 25 MG PO Q12HR PRN ITCHING Ref 0 CAP Insulin Human Regular Inj (Novolin R Inj) 1,000 Unit/10 Ml Vial 2-12 UNITS SQ ACHS Max dose at bedtime:( )units; sugars less than 70,(0) units; sugars 150-199,(2)unit; sugars 200-249,(4)units; sugars 250-299,(7) units; sugars 300-349,(10)units; sugars greater than 349,(12)units Blood Sugar Management #10 Ref 0 ML Naproxen (Naproxen) 250 Mg Tab 250 MG PO BID PRN PAIN #60 Ref 0 TAB Ondansetron (Ondansetron) 8 Mg Tab 8 MG PO Q8HR PRN NAUSEA Ref 0 TAB Potassium Chloride ER (K-Tab) 20 Meq Tab 20 MEQ PO BID Electrolyte Replacement #60 Ref 0 TAB Jeremiah Najera MD Jul 05, 2016 11:39
[2016-07-05] MEDS: MIRTAZAPINE 15 MG TAB PO SCH (21:39)
[2016-07-05] MEDS: ATORVASTATIN 40 MG TAB PO SCH (21:39)
[2016-07-06] VITALS (9 sets, daily range): BP systolic 101–132; BP diastolic 66–78; PULSE 66–82; RESP 16–18; TEMP 96–98.2; O2SAT 94–100
[2016-07-06] MEDS: RESP: ALBUTEROL 2.5 MG/IPRATROPIUM 0.5 MG NEB (SCH) INH ×3 (04:53→15:43)
[2016-07-06] MEDS: ACETAMINOPHEN/HYDROcodone 325 MG/5 MG TAB PO PRN ×2 (06:39→22:37)
[2016-07-06] MEDS: INSULIN ASPART SUPPLEMENTAL SCALE SQ SCH ×4 (06:41→21:00)
[2016-07-06] MEDS: PANTOPRAZOLE SODIUM 40 MG VIAL IV SCH (08:36)
[2016-07-06] MEDS: ARTIFICIAL TEARS OPTH SOLN 15 ML BTL EACH EYE SCH ×3 (08:36→16:57)
[2016-07-06] MEDS: SODIUM CHLORIDE 0.9% FLUSH 5 ML FLUSH IV FLUSH SCH ×2 (08:36→21:00)
[2016-07-06] MEDS: MUPIROCIN 2% OINT 1 APPLIC/GM SYR NASAL SCH ×2 (08:36→22:38)
[2016-07-06] MEDS: DARUNAVIR 800 MG TAB PO SCH (08:38)
[2016-07-06] MEDS: RALTEGRAVIR 400 MG TAB PO SCH ×2 (08:38→22:37)
[2016-07-06] MEDS: RITONAVIR 100 MG TAB PO SCH ×2 (08:38→22:36)
[2016-07-06] MEDS: DOCUSATE SODIUM 100 MG CAP PO SCH ×2 (08:39→21:00)
[2016-07-06] MEDS: THIAMINE HCL 100 MG TAB PO SCH (08:39)
[2016-07-06] MEDS: METOPROLOL TARTRATE 25 MG TAB PO SCH ×2 (08:39→22:38)
[2016-07-06] MEDS: PYRIMETHAMINE 25 MG PO SCH (08:39)
[2016-07-06] MEDS: ABACAVIR SULFATE 300 MG TAB PO SCH ×2 (08:39→22:36)
[2016-07-06] MEDS: ASPIRIN 325 MG TAB PO SCH (08:39)
[2016-07-06] MEDS: HEPARIN SODIUM - SQ 10,000 UNITS/ML VIAL SQ SCH ×2 (08:40→22:39)
--- NOTE | 2016-07-06 13:20 | HHI.PR ---
Subjective Remarks Patient DC yesterday but [facility] not available to give [facility] for [facility]. Patient reports that he is feeling okay. Still has same weakness in the right upper extremity. Right lower extremity strength is improving. Objective Vitals Vital Signs Date Time Temp Pulse Resp B/P Pulse Ox O2 Delivery O2 Flow Rate FiO2 07/06/16 11:05 96.0 82 18 121/71 98 07/06/16 09:27 98 21 07/06/16 07:15 78 07/06/16 07:05 97.6 76 18 132/78 98 07/06/16 04:00 97.4 70 16 101/66 96 07/06/16 00:00 98.1 66 16 107/67 94 07/05/16 23:58 18 07/05/16 20:00 98.5 86 20 103/61 99 07/05/16 19:42 96 21 07/05/16 15:40 98.0 86 18 111/72 99 I/O 07/05/16 07/05/16 07/05/16 07/06/16 07/06/16 07/06/16 07:00 15:00 23:00 07:00 15:00 23:00 Intake Total 240 ml 240 ml 480 ml Output Total 400 ml 100 ml Balance 240 ml -160 ml 380 ml Intake Oral 240 ml 240 ml 480 ml Output Urine Total 400 ml 100 ml # Bowel Movements 0 Result Diagram: 07/03/1644207/03/16442 Objective Remarks GENERAL: This is a well-nourished, well-developed patient, in no apparent distress. CARDIOVASCULAR: Normal rate and regular rhythm without murmurs, gallops, or rubs. RESPIRATORY: Good respiratory efforts. Breath sounds equal and clear to auscultation bilaterally. GASTROINTESTINAL: Abdomen soft, non-tender, non-distended. Normal active bowel sounds MUSCULOSKELETAL: Extremities without cyanosis, or edema. NEURO: Alert & Oriented. Normal speech. Right upper extremity paralysis, right lower extremity 3 out of 5 strength. 5 out of 5 strength on the left side PSYCH: Appropriate mood and affect. Procedures Alteplase administration. A/P Problem List: (1) Stroke ICD Code: I63.9 Status: Acute (2) Acute ischemic left MCA stroke ICD Code: I63.512 Status: Acute (3) Multiple myeloma ICD Code: C90.00 Status: Acute (4) HTN (hypertension) ICD Code: I10 Status: Acute (5) Diabetes ICD Code: E11.9 Status: Acute (6) Chronic back pain ICD Code: G89.29 Status: Acute (7) COPD (chronic obstructive pulmonary disease) ICD Code: J44.9 Status: Acute (8) GERD (gastroesophageal reflux disease) ICD Code: K21.9 Status: Acute (9) Anxiety and depression ICD Code: F41.8 Status: Acute (10) High cholesterol ICD Code: E78.0 Status: Acute (11) HCV (hepatitis C virus) ICD Code: B19.20 Status: Acute (12) HIV (human immunodeficiency virus infection) ICD Code: Z21 Status: Acute (13) CAD (coronary artery disease) ICD Code: I25.10 Status: Acute (14) Compression fracture of lumbar vertebra ICD Code: S32.000A Status: Acute (15) Tetrahydrocannabinol (THC) use disorder, mild, abuse ICD Code: F12.10 Status: Acute (16) Tobacco abuse ICD Code: Z72.0 Status: Acute Assessment and Plan 60-year-old AA male. Date of admission 07/02/2016. Past medical history includes HIV, hepatitis C, hypertension, depression, anxiety, COPD, diabetes, dyslipidemia, prior [place], THC, ongoing tobaccoism and chronic nausea. This individual presents to [place] emergency department with a history of prior stroke, with weakness in his right upper extremity and right lower extremity that started 1 hour prior to arrival. Patient received alteplase. Left MCA/BASAL GANGLIA CVA with right upper and lower extremity motor weakness History of CVA 2 mm left ICA aneurysm EtOH THC History of migraine headache Chronic narcotic use with Dilaudid CT head revealed no acute intracranial findings CTA head/neck revealed left ICA 2 mm saccular aneurysm. Seen by Dr. Mcneill/neurology Status post alteplase. MRI brain reveals left basal ganglia subcentimeter acute hemorrhage with extension. Patient is on thiamine 100 mg by mouth daily for EtOH use. This is been continued Patient is on Remeron 15 mg at night for depression. Resume clinically indicated Aspirin 325 mg by mouth daily. Neurology's recommendations. Hypertension Congestive heart failure unknown etiology Norvasc 5 mg by mouth daily and Lopressor 25 mg by mouth twice a day for hypertension at home. Lipitor 10 mg at night COPD Left apex mass - follow-up CT PET scan recommended Nasal cannula to maintain saturations greater than equal to 92% Incentive spirometry while awake Bronchodilator therapy every 6 hours and as needed Hepatitis C Gastroesophageal reflux disease Chronic nausea Patient passed swallow evaluation. As per speech therapy Protonix 40 mg IV daily for GI prophylaxis Colace/as needed Senokot for bowel regimen Patient is on Zofran 8 mg every 8/Vistaril 12.5 mg every 12 hours for chronic nausea Diabetes mellitus Sliding-scale insulin with Accu-Cheks to maintain euglycemia. Low regimen Patient is on Humulin R sliding scale insulin to 12 units before meals/at bedtime at home Multiple myeloma Normocytic anemia Leukocytosis Follow CBC in a.m. Coags within normal limits Patient is on Decadron 40 mg every for his Velcade therapy. Received with Dr. Bradly Lopez.. HIV Continue home medications. Chronic low back pain Osteoporosis/osteoarthritis PT/OT evaluate and treat. Prophylaxis - GI - Protonix - DVT - SCD/heparin 5000 units subcutaneous twice a day Discharge Planning Discharge to rehabilitation once arrangements are made. Problem Qualifiers (1) Stroke: Qualified Code: I63.9 - Cerebrovascular accident (CVA), unspecified mechanism (2) Multiple myeloma: Qualified Code: C90.00 - Multiple myeloma, remission status unspecified (3) HTN (hypertension): Qualified Code: I10 - Essential hypertension (4) Diabetes: Qualified Code: E11.8 - Type 2 diabetes mellitus with complication, without long-term current use of insulin (5) Chronic back pain: Qualified Code: M54.5 - Chronic bilateral low back pain without sciatica (6) COPD (chronic obstructive pulmonary disease): Qualified Code: J44.9 - Chronic obstructive pulmonary disease, unspecified COPD type (7) HCV (hepatitis C virus): Qualified Code: B18.2 - Chronic hepatitis C without hepatic coma (8) CAD (coronary artery disease): Qualified Code: I25.10 - Coronary artery disease involving [place] heart without angina pectoris, unspecified vessel or lesion type (9) Compression fracture of lumbar vertebra: Qualified Code: S32.000D - Compression fracture of lumbar vertebra, with routine healing, subsequent encounter Jeremiah Najera MD Jul 06, 2016 13:20
[2016-07-06] MEDS: ATORVASTATIN 40 MG TAB PO SCH (22:37)
[2016-07-06] MEDS: MIRTAZAPINE 15 MG TAB PO SCH (22:37)
[2016-07-06] MEDS: CHLORHEXIDINE GLUCONATE 2 % 1 PACK (2 CLOTHS) TOP SCH (22:38)
[2016-07-07] VITALS: BP 140/88; PULSE 82; RESP 18; TEMP 98.7; O2SAT 18
[2016-07-07 04:00] VITALS: BP 106/69; PULSE 80; RESP 20; TEMP 97.5; O2SAT 97
[2016-07-07] MEDS: ACETAMINOPHEN/HYDROcodone 325 MG/5 MG TAB PO PRN (06:08)
[2016-07-07] MEDS: INSULIN ASPART SUPPLEMENTAL SCALE SQ SCH ×3 (06:08→16:00)
[2016-07-07 08:00] VITALS: BP 111/72; PULSE 77; RESP 18; TEMP 95.7; O2SAT 97
[2016-07-07] MEDS: MUPIROCIN 2% OINT 1 APPLIC/GM SYR NASAL SCH (09:00)
[2016-07-07] MEDS: ARTIFICIAL TEARS OPTH SOLN 15 ML BTL EACH EYE SCH ×2 (09:00→13:00)
[2016-07-07] MEDS: PYRIMETHAMINE 25 MG PO SCH (09:00)
--- NOTE | 2016-07-07 09:34 | HHI.PR ---
Review/Management Diagnosis/Plan: (1) Acute ischemic left MCA stroke Plan: s/p iv tpa -hx of hiv, multiple myeloma mri brain + left subcortical infarct ? vasculopathy vs 2/2 small vessel dz from chronic htn nihss 4 recs exam improved doing well bp controlled on aspirin/statin bp control tobacco cessation needs to f/u with his onc re: myeloma and recent stroke rehab, d/c planning (2) HTN (hypertension) (3) Multiple myeloma Subjective Subjective Comments No acute events reported No headache No chest pain No dyspnea Active Medications Current Medications Medications (Trade) Dose Ordered Sig/Donna Route Start Time Stop Time Status Last Admin (D50w (Vial) Inj) 25 ml UNSCH PRN IV PUSH 07/02/16 11:00 (Glucagon Inj) 1 mg UNSCH PRN IM/SQ 07/02/16 11:00 (NS Flush) 2 ml UNSCH PRN IV FLUSH 07/02/16 11:00 (NS Flush) 2 ml BID IV FLUSH 07/02/16 21:00 07/05/16 21:41 (Tylenol) 650 mg Q6H PRN PO 07/02/16 11:00 (Delta 5-325 Mg) 1 tab Q4H PRN PO 07/02/16 11:00 07/07/16 06:08 (Morphine Inj) 2 mg Q2H PRN IV 07/02/16 11:00 (Protonix Inj) 40 mg DAILY IV 07/03/16 09:00 07/05/16 10:26 (Tears Naturale Opth Soln) 1 drop TID EACH EYE 07/02/16 13:00 07/06/16 16:57 (Zofran Inj) 4 mg Q6H PRN IV 07/02/16 11:00 (Colace) 100 mg BID PO 07/02/16 21:00 07/06/16 08:39 (Senokot) 17.2 mg Q12H PRN PO 07/02/16 11:00 Miscellaneous Information 1 Q361D XX 07/02/16 11:00 07/02/16 11:00 (Chlorhexidine 2% Cloth) 3 pack Taper DAILY@04 TOP 07/03/16 04:00 06/29/17 03:59 07/03/16 05:06 (Chlorhexidine 2% Cloth) 3 pack UNSCH PRN TOP 07/02/16 11:00 (Lipitor) 40 mg HS PO 07/02/16 21:00 07/06/16 22:37 (Bactroban Nasal 2% Oint) 1 applic BID NASAL 07/03/16 21:00 07/06/16 22:38 (Aspirin) 325 mg DAILY PO 07/03/16 17:00 07/06/16 08:39 (Heparin Inj) 5,000 units Q12HR SQ 07/03/16 21:00 07/06/16 22:39 (Daraprim) 50 mg DAILY PO 07/04/16 09:00 (Remeron) 15 mg HS PO 07/03/16 21:00 07/06/16 22:37 (Ziagen) 600 mg Q12HR PO 07/03/16 21:00 07/06/16 22:36 (Prezista) 800 mg DAILY PO 07/04/16 09:00 07/06/16 08:38 (Isentress) 400 mg BID PO 07/03/16 21:00 07/06/16 22:37 (Norvir) 100 mg BID PO 07/03/16 21:00 07/06/16 22:36 (Vitamin B1) 100 mg DAILY PO 07/04/16 09:00 07/06/16 08:39 (Atarax) 12.5 mg Q8H PRN PO 07/03/16 17:15 (Lopressor) 12.5 mg Q12HR PO 07/03/16 21:00 07/06/16 22:38 Allergies Allergies Coded Allergies Penicillin (Verified Allergy, Severe, RASH, 07/02/16) Methocarbamol (Verified Allergy, Intermediate, SWELLING AROUND EYES, 07/02/16) *MDRO Multi-Drug Resistant Organism (Verified Adverse Reaction, Unknown, MRSA , 07/04/16) Review of Systems All other ROS: ROS reviewed as documented in chart Exam I&O / VS 07/06/16 07/06/16 07/07/16 15:00 23:00 07:00 Intake Total 480 ml 200 ml Output Total 100 ml 1 ml Balance 380 ml 199 ml Intake Oral 480 ml 200 ml Output Urine Total 100 ml 1 ml # Voids 2 100 Vital Signs Date Time Temp Pulse Resp B/P Pulse Ox O2 Delivery O2 Flow Rate FiO2 07/07/16 08:08 18 07/07/16 08:00 95.7 77 18 111/72 97 07/07/16 04:00 97.5 80 20 106/69 97 07/07/16 00:00 98.7 82 18 140/88 18 07/06/16 20:00 98.2 68 16 110/68 98 07/06/16 15:00 96.1 80 18 126/78 100 07/06/16 11:05 96.0 82 18 121/71 98 General: Alert and Oriented, No acute distress Eye: EOMI Respiratory: Non-labored respirations Neurologic: Alert, Oriented Psychiatric: Cooperative, Appropriate mood & affect Exam Comments ox 3. follows, eomi, vff, face sym, articulate, rt arm 2-3/5, rt leg 3/5 with proportional dystaxia nihss 4 Problem Qualifiers (1) HTN (hypertension): Qualified Code: I10 - Essential hypertension (2) Multiple myeloma: Qualified Code: C90.00 - Multiple myeloma, remission status unspecified Francis Mcneill MD Jul 07, 2016 09:34
[2016-07-07] MEDS: RITONAVIR 100 MG TAB PO SCH (10:23)
[2016-07-07] MEDS: ABACAVIR SULFATE 300 MG TAB PO SCH (10:23)
[2016-07-07] MEDS: METOPROLOL TARTRATE 25 MG TAB PO SCH (10:23)
[2016-07-07] MEDS: DARUNAVIR 800 MG TAB PO SCH (10:23)
[2016-07-07] MEDS: ASPIRIN 325 MG TAB PO SCH (10:24)
[2016-07-07] MEDS: RALTEGRAVIR 400 MG TAB PO SCH (10:24)
[2016-07-07] MEDS: PANTOPRAZOLE SODIUM 40 MG VIAL IV SCH (10:24)
[2016-07-07] MEDS: THIAMINE HCL 100 MG TAB PO SCH (10:24)
[2016-07-07] MEDS: DOCUSATE SODIUM 100 MG CAP PO SCH (10:25)
[2016-07-07] MEDS: HEPARIN SODIUM - SQ 10,000 UNITS/ML VIAL SQ SCH (10:25)
[2016-07-07] MEDS: SODIUM CHLORIDE 0.9% FLUSH 5 ML FLUSH IV FLUSH SCH (10:44)
[2016-07-07 11:00] VITALS: PULSE 85
--- NOTE | 2016-07-07 11:51 | HHI.PR ---
Subjective Remarks Patient has no new complaints. RUE paralysis persisting but RLE improving. Still awaiting insurance approval for rehab. Objective Vitals Vital Signs Date Time Temp Pulse Resp B/P Pulse Ox O2 Delivery O2 Flow Rate FiO2 07/07/16 08:08 18 07/07/16 08:00 95.7 77 18 111/72 97 07/07/16 04:00 97.5 80 20 106/69 97 07/07/16 00:00 98.7 82 18 140/88 18 07/06/16 20:00 98.2 68 16 110/68 98 07/06/16 15:00 96.1 80 18 126/78 100 I/O 07/06/16 07/06/16 07/06/16 07/07/16 07/07/16 07/07/16 07:00 15:00 23:00 07:00 15:00 23:00 Intake Total 480 ml 200 ml Output Total 100 ml 1 ml Balance 380 ml 199 ml Intake Oral 480 ml 200 ml Output Urine Total 100 ml 1 ml # Voids 2 100 Result Diagram: 07/03/1644207/03/16442 Objective Remarks GENERAL: This is a well-nourished, well-developed patient, in no apparent distress. CARDIOVASCULAR: Normal rate and regular rhythm without murmurs, gallops, or rubs. RESPIRATORY: Good respiratory efforts. Breath sounds equal and clear to auscultation bilaterally. GASTROINTESTINAL: Abdomen soft, non-tender, non-distended. Normal active bowel sounds MUSCULOSKELETAL: Extremities without cyanosis, or edema. NEURO: Alert & Oriented. Normal speech. Right upper extremity paralysis, right lower extremity 3+ out of 5 strength. 5 out of 5 strength on the left side PSYCH: Appropriate mood and affect. Procedures Alteplase administration. A/P Problem List: (1) Stroke ICD Code: I63.9 Status: Acute (2) Acute ischemic left MCA stroke ICD Code: I63.512 Status: Acute (3) Multiple myeloma ICD Code: C90.00 Status: Acute (4) HTN (hypertension) ICD Code: I10 Status: Acute (5) Diabetes ICD Code: E11.9 Status: Acute (6) Chronic back pain ICD Code: G89.29 Status: Acute (7) COPD (chronic obstructive pulmonary disease) ICD Code: J44.9 Status: Acute (8) GERD (gastroesophageal reflux disease) ICD Code: K21.9 Status: Acute (9) Anxiety and depression ICD Code: F41.8 Status: Acute (10) High cholesterol ICD Code: E78.0 Status: Acute (11) HCV (hepatitis C virus) ICD Code: B19.20 Status: Acute (12) HIV (human immunodeficiency virus infection) ICD Code: Z21 Status: Acute (13) CAD (coronary artery disease) ICD Code: I25.10 Status: Acute (14) Compression fracture of lumbar vertebra ICD Code: S32.000A Status: Acute (15) Tetrahydrocannabinol (THC) use disorder, mild, abuse ICD Code: F12.10 Status: Acute (16) Tobacco abuse ICD Code: Z72.0 Status: Acute Assessment and Plan 60-year-old AA male. Date of admission 07/02/2016. Past medical history includes HIV, hepatitis C, hypertension, depression, anxiety, COPD, diabetes, dyslipidemia, prior CT, THC, ongoing tobaccoism and chronic nausea. This individual presents to [place] emergency department with a history of prior stroke, with weakness in his right upper extremity and right lower extremity that started 1 hour prior to arrival. Patient received alteplase. Left MCA/BASAL GANGLIA CVA with right upper and lower extremity motor weakness History of CVA 2 mm left ICA aneurysm EtOH THC History of migraine headache Chronic narcotic use with Dilaudid CT head revealed no acute intracranial findings CTA head/neck revealed left ICA 2 mm saccular aneurysm. Seen by Dr. Mcneill/neurology Status post alteplase. MRI brain reveals left basal ganglia subcentimeter acute hemorrhage with extension. Patient is on thiamine 100 mg by mouth daily for EtOH use. This is been continued Patient is on Remeron 15 mg at night for depression. Resume clinically indicated Aspirin 325 mg by mouth daily. Neurology's recommendations. Hypertension Congestive heart failure unknown etiology Norvasc 5 mg by mouth daily and Lopressor 25 mg by mouth twice a day for hypertension at home. Lipitor 10 mg at night COPD Left apex mass - follow-up CT PET scan recommended Nasal cannula to maintain saturations greater than equal to 92% Incentive spirometry while awake Bronchodilator therapy every 6 hours and as needed Hepatitis C Gastroesophageal reflux disease Chronic nausea Patient passed swallow evaluation. As per speech therapy Protonix 40 mg IV daily for GI prophylaxis Colace/as needed Senokot for bowel regimen Patient is on Zofran 8 mg every 8/Vistaril 12.5 mg every 12 hours for chronic nausea Diabetes mellitus Sliding-scale insulin with Accu-Cheks to maintain euglycemia. Low regimen Patient is on Humulin R sliding scale insulin to 12 units before meals/at bedtime at home Multiple myeloma Normocytic anemia Leukocytosis Follow CBC in a.m. Coags within normal limits Patient is on Decadron 40 mg every for his Velcade therapy. Received with Dr. Bradly Lopez.. HIV Continue home medications. Chronic low back pain Osteoporosis/osteoarthritis PT/OT evaluate and treat. Prophylaxis - GI - Protonix - DVT - SCD/heparin 5000 units subcutaneous twice a day Discharge Planning Patient has been discharged. Awaiting placement. CM following. Problem Qualifiers (1) Stroke: Qualified Code: I63.9 - Cerebrovascular accident (CVA), unspecified mechanism (2) Multiple myeloma: Qualified Code: C90.00 - Multiple myeloma, remission status unspecified (3) HTN (hypertension): Qualified Code: I10 - Essential hypertension (4) Diabetes: Qualified Code: E11.8 - Type 2 diabetes mellitus with complication, without long-term current use of insulin (5) Chronic back pain: Qualified Code: M54.5 - Chronic bilateral low back pain without sciatica (6) COPD (chronic obstructive pulmonary disease): Qualified Code: J44.9 - Chronic obstructive pulmonary disease, unspecified COPD type (7) HCV (hepatitis C virus): Qualified Code: B18.2 - Chronic hepatitis C without hepatic coma (8) CAD (coronary artery disease): Qualified Code: I25.10 - Coronary artery disease involving [place] heart without angina pectoris, unspecified vessel or lesion type (9) Compression fracture of lumbar vertebra: Qualified Code: S32.000D - Compression fracture of lumbar vertebra, with routine healing, subsequent encounter Jeremiah Najera MD Jul 07, 2016 11:51
[2016-07-07 12:00] VITALS: BP 109/73; PULSE 85; RESP 18; TEMP 97.2; O2SAT 97
[2016-07-07 16:06] VITALS: BP 101/61; PULSE 79; RESP 18; TEMP 97; O2SAT 99
== END 2016-07-07 18:07 | DRG 62 ==
LOC: NEPE 08:59 → NEDA 09:59 → N03B 12:03 → N05A 07-04 03:28
PROVIDERS: ADMIT Family Medicine; ATTEND Family Medicine
DX: I63.512 Cerebral infarction due to unspecified occlusion or stenosis of left middle cerebral artery (principal); C90.00 Multiple myeloma not having achieved remission; I67.1 Cerebral aneurysm, nonruptured; G81.91 Hemiplegia, unspecified affecting right dominant side; I10 Essential (primary) hypertension; E11.9 Type 2 diabetes mellitus without complications; D64.9 Anemia, unspecified; M48.56XA Collapsed vertebra, not elsewhere classified, lumbar region, initial encounter for fracture; I50.9 Heart failure, unspecified; Z21 Asymptomatic human immunodeficiency virus [HIV] infection status; G89.29 Other chronic pain; M54.5 Low back pain; J44.9 Chronic obstructive pulmonary disease, unspecified; K21.9 Gastro-esophageal reflux disease without esophagitis; F32.9 Major depressive disorder, single episode, unspecified; F41.9 Anxiety disorder, unspecified; B18.2 Chronic viral hepatitis C; I25.10 Atherosclerotic heart disease of native coronary artery without angina pectoris; F12.90 Cannabis use, unspecified, uncomplicated; I25.2 Old myocardial infarction; Z86.73 Personal history of transient ischemic attack (TIA), and cerebral infarction without residual deficits; G47.33 Obstructive sleep apnea (adult) (pediatric); M81.0 Age-related osteoporosis without current pathological fracture; M19.90 Unspecified osteoarthritis, unspecified site; N40.0 Benign prostatic hyperplasia without lower urinary tract symptoms; F17.210 Nicotine dependence, cigarettes, uncomplicated; Z79.891 Long term (current) use of opiate analgesic; I16.0 Hypertensive urgency; E78.5 Hyperlipidemia, unspecified; R91.8 Other nonspecific abnormal finding of lung field; Z79.4 Long term (current) use of insulin
CPT/HCPCS: 70450; 70496; 70498; 70551; 80053; 80061; 80307; 81001; 82435; 82550; 82565; 82607; 82947; 82948; 83036; 83605; 83735; 84100; 84132; 84295; 84443; 84484; 84520; 85007; 85025; 85027; 85384; 85610; 85652; 85730; 86038; 86850; 86900; 86901; 87641; 93005; 93306; 94150; 94640; 94664; 96374; C9113; J1644; J2997; J7030; Q9967

== ENCOUNTER 2016-08-02 10:25 | Inpatient (IN) | payer OTHER ==
[~2016-08-02] VITALS: Ht 167.6 cm; Wt 51.0 kg
[~2016-08-02 10:25] MED LIST changes: +AMLO5TAB2 PO; -AMLO5TAB96 PO; +ASPI325T PO; -CIPR-9 PO; -FURO20TA PO; +HYDR-3516 PO; -HYDR2TAB PO; -LEVA750T9 PO; +LIPI40TA PO; -METO25 PO; +METO25TA3 PO; -MUCI600T PO; -NAPR250T57 PO; -NRSS SQ; -ONDA8 PO; -POTA20IN3 PO; +PYRI25 PO; -PYRI25TA11 PO; -RALT100C PO; +RALT400 PO; -VIST25CA PO; +ZIAG300T3 PO; -[UNRECOGNIZED DRUG - CODE] PO; -[UNRECOGNIZED DRUG - CODE] PO
[2016-08-02 10:28] VITALS: BP 128/80; PULSE 104; RESP 16; TEMP 97.8; O2SAT 97
[2016-08-02 10:44] VITALS: BP 153/84; PULSE 94; RESP 18; O2SAT 97
[2016-08-02 10:51] VITALS: O2SAT 97
--- NOTE | 2016-08-02 10:53 | PD ---
HPI Chief Complaint: Chest Pain Time Seen by Provider: 10:39 Travel History International Travel<30 days: No Contact w/Intl Traveler<30days: No Traveled to known affect area: No History of Present Illness HPI 60-year-old male complains of chest pain. Patient states the pain started yesterday. Patient states the pain is pressure pain aching pain started on the left chest with radiation to left upper back. Patient denies any nausea vomiting diaphoresis. Patient denies palpitation. Patient states that the pain has been constant since yesterday. Patient states that he has history CAD status post ME in the past. Patient also has history hypertension, diabetes, dyslipidemia. She also has history of HIV positive, hepatitis C, depression, anxiety, COPD, multiple myeloma, GERD. Patient is a smoker. Patient status post CVA recently with right-sided weakness. Patient take aspirin 325 mg daily. Patient did not take aspirin today. On a scale of 1-10 the pain is an 8. PFSH Past Medical History Hx Anticoagulant Therapy: Yes (ASA) Arthritis: Yes Asthma: Yes Autoimmune Disease: Yes Blood Disorders: No Anxiety: Yes Depression: Yes Heart Rhythm Problems: Yes Cancer: Yes (MULTIPLE MYELOMA (REMISSION)) Cardiac Catheterization: No Cardiovascular Problems: Yes (HTN, ME) High Cholesterol: Yes Chemotherapy: Yes Chest Pain: Yes Congestive Heart Failure: Yes COPD: Yes Cerebrovascular Accident: Yes Diabetes: Yes Patient Takes Glucophage: No Diminished Hearing: No Endocrine: Yes Gastrointestinal Disorders: Yes GERD: Yes Genitourinary: Yes (PT REPORTS URGENCY. ) Headaches: Yes Hepatitis: Yes (HEP C) Hiatal Hernia: No Heparin Induced Thrombocytopen: No Hypertension: Yes Immune Disorder: Yes (HIV 2010) Implanted Vascular Access Dvce: Yes Kidney Stones: No Musculoskeletal: Yes Neurologic: Yes Psychiatric: Yes Reproductive: No Respiratory: Yes (COPD) Immunizations Current: No Migraines: Yes Myocardial Infarction: Yes Radiation Therapy: No Renal Failure: No Seizures: No Sleep Apnea: Yes Ulcer: No Past Surgical History Abdominal Surgery: No AICD: No Appendectomy: No Arteriovenous Shunt: No Body Medical Devices: METAL PLATES IN JAW AND SKULL Cardiac Surgery: No Cholecystectomy: No Coronary Artery Bypass Graft: No Ear Surgery: No Endocrine Surgery: No Eye Surgery: No Genitourinary Surgery: No Gynecologic Surgery: No Insulin Pump: No Joint Replacement: No Neurologic Surgery: No Oral Surgery: No Pacemaker: No Thoracic Surgery: No Other Surgery: Yes (BONE MARROW BIOPSY) Family History Family Myocardial Infarction: Yes Social History Alcohol Use: Yes (occasional) Tobacco Use: Yes (1-2 CIG DAILY) Substance Use: Yes (MARIJUANA daily, and cocaine OCCASIONALLY) Allergies-Medications (Allergen,Severity, Reaction): Coded Allergies: Penicillin (Verified Allergy, Severe, RASH, 07/02/16) Methocarbamol (Verified Allergy, Intermediate, SWELLING AROUND EYES, ) *MDRO Multi-Drug Resistant Organism (Verified Adverse Reaction, Unknown, MRSA, 07/04/16) MRSA screen POSITIVE - 07/02/16 Reported Meds & Prescriptions Reported Meds & Active Scripts Active Hydrocodone-Acetaminophen 5-325 mg Tab 1 Tab PO Q4H PRN Lipitor (Atorvastatin Calcium) 40 Mg Tab 40 Mg PO HS Aspirin 325 Mg Tab 325 Mg PO DAILY Metoprolol Tartrate 25 Mg Tab 12.5 Mg PO BID Reported Ventolin Hfa 18 GM Inh (Albuterol Sulfate) 90 Mcg/Act Aer 2 Puff INH Q4H PRN Ziagen (Abacavir Sulfate) 300 Mg Tab 600 Mg PO Q12HR Hazardous agent; use appropriate precautions for handling & disposal. Amlodipine (Amlodipine Besylate) 5 Mg Tab 5 Mg PO DAILY Daraprim (Pyrimethamine) 25 Mg Tab 50 Mg PO DAILY Prezista (Darunavir) 800 Mg Tab 800 Mg PO DAILY Dexamethasone 4 Mg Tab 40 Mg PO WEEKLY ON THURSDAYS Mirtazapine 15 Mg Tab 15 Mg PO HS Isentress (Raltegravir) 400 Mg Tab 400 Mg PO Q12HR Norvir (Ritonavir) 100 Mg Cap 100 Mg PO BID Thiamine (Thiamine HCl) 100 Mg Tab 100 Mg PO DAILY Review of Systems General / Constitutional: No: Fever Eyes: No: Visual changes HENT: No: Headaches Cardiovascular: Positive: Chest Pain or Discomfort Respiratory: No: Shortness of Breath Gastrointestinal: No: Abdominal Pain Genitourinary: No: Dysuria Musculoskeletal: No: Pain Skin: No Rash Neurologic: No: Weakness Psychiatric: No: Depression Endocrine: No: Polydipsia Hematologic/Lymphatic: No: Easy Bruising Physical Exam Narrative GENERAL: Well-nourished, well-developed patient. SKIN: Warm and dry. HEAD: Normocephalic. EYES: No scleral icterus. No injection or drainage. NECK: Supple, trachea midline. No JVD or lymphadenopathy. CARDIOVASCULAR: Regular rate and rhythm without murmurs, gallops, or rubs. RESPIRATORY: Breath sounds equal bilaterally. No accessory muscle use. GASTROINTESTINAL: Abdomen soft, non-tender, nondistended. MUSCULOSKELETAL: No cyanosis, or edema. BACK: Nontender without obvious deformity. No CVA tenderness. Neurologic exam normal. Data Data Last Documented VS Vital Signs Date Time Temp Pulse Resp B/P Pulse Ox O2 Delivery O2 Flow Rate FiO2 08/02/16 13:20 77 18 155/93 97 Nasal Cannula 2 08/02/16 10:28 97.8 Orders Electrocardiogram (08/02/16 ) Complete Blood Count With Diff (08/02/16 10:48) Comprehensive Metabolic Panel (08/02/16 10:48) Creatine Kinase (Cpk) (08/02/16 10:48) Troponin I (08/02/16 10:48) B-Type Natriuretic Peptide (08/02/16 10:48) Prothrombin Time / Inr (Pt) (08/02/16 10:48) Act Partial Throm Time (Ptt) (08/02/16 10:48) Chest, Single Ap (08/02/16 10:48) Iv Access Insert/Monitor (08/02/16 10:48) Ecg Monitoring (08/02/16 10:48) Oximetry (08/02/16 10:48) Ct Pulmonary Angiogram (08/02/16 10:48) Morphine Inj (Morphine Inj) (08/02/16 11:00) Ondansetron Inj (Zofran Inj) (08/02/16 11:00) Sodium Chlor 0.9% 1000 Ml Inj (Ns 1000 M (08/02/16 11:00) Isolation 08,20 (08/02/16 10:50) Aspirin (Aspirin) (08/02/16 11:00) Iohexol 350 Inj (Omnipaque 350 Inj) (08/02/16 13:05) Labs Laboratory Tests Test 08/02/16 10:54 White Blood Count 5.1 TH/MM3 Red Blood Count 4.26 MIL/MM3 Hemoglobin 12.1 GM/DL Hematocrit 35.4 % Mean Corpuscular Volume 83.1 FL Mean Corpuscular Hemoglobin 28.5 PG Mean Corpuscular Hemoglobin 34.3 % Concent Red Cell Distribution Width 15.2 % Platelet Count 170 TH/MM3 Mean Platelet Volume 8.0 FL Neutrophils (%) (Auto) 57.3 % Lymphocytes (%) (Auto) 30.8 % Monocytes (%) (Auto) 9.3 % Eosinophils (%) (Auto) 1.9 % Basophils (%) (Auto) 0.7 % Neutrophils # (Auto) 2.9 TH/MM3 Lymphocytes # (Auto) 1.6 TH/MM3 Monocytes # (Auto) 0.5 TH/MM3 Eosinophils # (Auto) 0.1 TH/MM3 Basophils # (Auto) 0.0 TH/MM3 CBC Comment DIFF FINAL Differential Comment Prothrombin Time 11.1 SEC Prothromb Time International 1.0 RATIO Ratio Activated Partial 26.4 SEC Thromboplast Time Sodium Level 134 MEQ/L Potassium Level 4.0 MEQ/L Chloride Level 100 MEQ/L Carbon Dioxide Level 25.6 MEQ/L Anion Gap 8 MEQ/L Blood Urea Nitrogen 12 MG/DL Creatinine 1.24 MG/DL Estimat Glomerular Filtration 72 ML/MIN Rate Random Glucose 87 MG/DL Calcium Level 8.9 MG/DL Total Bilirubin 0.4 MG/DL Aspartate Amino Transf 38 U/L (AST/SGOT) Alanine Aminotransferase 66 U/L (ALT/SGPT) Alkaline Phosphatase 79 U/L Total Creatine Kinase 282 U/L Troponin I LESS THAN 0.02 NG/ML B-Type Natriuretic Peptide 18 PG/ML Total Protein 8.0 GM/DL Albumin 3.4 GM/DL [facility] Medical Decision Making Medical Screen Exam Complete: Yes Emergency Medical Condition: Yes Medical Record Reviewed: Yes Interpretation(s) 10:56 AM. EKG shows sinus rhythm nonspecific ST-T wave change. Mild ST elevation in V2 and V3. 12:19 PM. Last Impressions Chest X-Ray 08/02/161047 Signed Impressions: Service Date/Time: Tuesday, August 02, 2016 11:00 - CONCLUSION: No acute disease. Mike Pisano MD 12:19 PM. CBC within normal limit. Sodium 134. Cardiac enzymes are normal. BNP 18. 1321 PM. Last Impressions Chest X-Ray 08/02/161047 Signed Impressions: Service Date/Time: Tuesday, August 02, 2016 11:00 - CONCLUSION: No acute disease. Mike Pisano MD CT Angiography 08/02/161047 Signed Impressions: Service Date/Time: Tuesday, August 02, 2016 12:20 - CONCLUSION: 1. No evidence for pulmonary embolism. 2. Irregular density right upper lobe with minimal cavitation, this is nonspecific but could be infectious/inflammatory or neoplastic. Infectious etiologies could include TB and fungal etiologies. Treatment and followup recommended. Mike Pisano MD Differential Diagnosis Differential diagnosis including musculoskeletal, angina, ME, PE, pneumothorax. Narrative Course 60-year-old male with left-sided chest pain. History of ME in the past. Diagnosis Primary Impression: Chest pain Qualified Code: R07.9 - Chest pain, unspecified type Additional Impression: Cavitating mass in right upper lung lobe Admitting Information Admitting Physician Requests: Admit Ryder Smith MD Aug 02, 2016 10:53
[2016-08-02] MEDS ORDERED: ASPIRIN 325 MG TAB PO ONE (11:00)
[2016-08-02] MEDS ORDERED: MORPHINE SULFATE 4 MG/ML INJ IV PUSH ONE (11:00)
[2016-08-02] MEDS: SODIUM CHLOR 0.9% 1000 ML INJ 1,000 ML IV SCH ×2 (11:00→22:57)
[2016-08-02] MEDS ORDERED: ONDANSETRON HCL 4 MG/2 ML VIAL IV PUSH ONE (11:00)
--- NOTE | 2016-08-02 11:09 | RADRPT ---
EXAM DATE/TIME: 08/02/2016 11:00 [facility] COMPARISON: CHEST SINGLE AP, June 12, 2016, 4:32. INDICATIONS : Chest pain and shortness of breath since yesterday. MEDICAL HISTORY : Hypertension. Diabetes mellitus type II. Chronic obstructive pulmonary disease. Asthma. SURGICAL HISTORY : None. ENCOUNTER: Initial ACUITY: 2 days PAIN SCORE: 6/10 LOCATION: Bilateral chest FINDINGS: A single view of the chest demonstrates the lungs to be symmetrically aerated without evidence of mas s, infiltrate or effusion. The cardiomediastinal contours are unremarkable. Osseous structures are intact. CONCLUSION: No acute disease. Mike Pisano MD on August 02, 2016 at 11:07 Board Certified Radiologist. This report was verified electronically.
[2016-08-02 11:21] LABS: AUTOMATED NEUTROPHIL # 2.9 TH/MM3 (1.8-7.7); BASOPHIL % 0.7 % (0.0-2.0); EOSINOPHIL # 0.1 TH/MM3 (0-0.4); EOSINOPHIL % 1.9 % (0.0-4.0); HEMATOCRIT 35.4 % (39.0-51.0); HEMO FLAGS DIFF FINAL; LYMPH % 30.8 % (9.0-44.0); LYMPHOCYTE # 1.6 TH/MM3 (1.0-4.8); MEAN CELL VOLUME 83.1 FL (80.0-100.0); MEAN CORPUSCULAR HEMOGLOBIN 28.5 PG (27.0-34.0); MEAN CORPUSCULAR HGB CONC 34.3 % (32.0-36.0); MONO % 9.3 % (0.0-8.0); NEUT % 57.3 % (16.0-70.0); PLATELET COUNT 170 TH/MM3 (150-450); RED BLOOD COUNT 4.26 MIL/MM3 (4.50-5.90); RED CELL DISTRIBUTION WIDTH 15.2 % (11.6-17.2); WHITE BLOOD COUNT 5.1 TH/MM3 (4.0-11.0)
[2016-08-02 11:32] LABS: APTT (PATIENT) 26.4 SEC (24.3-30.1); PROTHROMBIN TIME - PATIENT 11.1 SEC (9.8-11.6)
[2016-08-02 11:53] LABS: ALT (GPT) 66 U/L (12-78); ANION GAP 8 MEQ/L (5-15); AST (GOT) 38 U/L (15-37); BICARBONATE 25.6 MEQ/L (21.0-32.0); BLOOD UREA NITROGEN 12 MG/DL (7-18); CHLORIDE 100 MEQ/L (98-107); GLOMERULAR FILTRATION RATE 72 ML/MIN (>89); SODIUM (NA) 134 MEQ/L (136-145)
[2016-08-02 11:56] LABS: ALKALINE PHOSPHATASE 79 U/L (45-117); CREATINE KINASE 282 U/L (39-308); TOTAL BILIRUBIN ADULT 0.4 MG/DL (0.2-1.0)
[2016-08-02] MEDS ORDERED: IOHEXOL 350 MG/ML 10 ML VIAL (for RAD DIAG) IV ONE (13:05)
--- NOTE | 2016-08-02 13:13 | RADRPT ---
EXAM DATE/TIME: 08/02/2016 12:20 [facility] COMPARISON: No previous studies available for comparison. INDICATIONS : Chest pain and shortness of breath; evaluate for embolism. IV CONTRAST: 50 cc Omnipaque 350 (iohexol) IV RADIATION DOSE: 19.57 CTDIvol (mGy) MEDICAL HISTORY : Cardiovascular disease. Chronic obstructive pulmonary disease. Hepatitis C.Stroke, hypertension, diab etes, HIV, multiple myeloma. SURGICAL HISTORY : None. ENCOUNTER: Initial ACUITY: 1 day PAIN SCALE: 7/10 LOCATION: Left chest TECHNIQUE: Volumetric scanning of the chest was performed using a pulmonary embolism protocol MIP images were re constructed. Using automated exposure control and adjustment of the mA and/or kV according to patien t size, radiation dose was kept as low as reasonably achievable to obtain optimal diagnostic quality images. FINDINGS: PULMONARY ARTERIES: No filling defects are seen in the pulmonary arteries through the segmental level. LUNGS: There is no consolidation or pneumothorax . A 1.9 cm density in the right apex with minimal cavitatio n. Seen posteriorly in the right upper lobe. Minimal emphysema. Minimal density right lower lobe like ly atelectasis No concerning pulmonary nodule is visualized. PLEURAE: There is no pleural thickening or pleural effusion. MEDIASTINUM: There is good visualization of the great vessels of the middle mediastinum. No evidence of mediastin al or hilar adenopathy/mass. MUSCULOSKELETAL: Within normal limits for patient age. MISCELLANEOUS: The visualized upper abdominal organs demonstrate no acute abnormality. CONCLUSION: 1. No evidence for pulmonary embolism. 2. Irregular density right upper lobe with minimal cavitation, this is nonspecific but could be infec tious/inflammatory or neoplastic. Infectious etiologies could include TB and fungal etiologies. Treat ment and followup recommended. Mike Pisano MD on August 02, 2016 at 13:10 Board Certified Radiologist. This report was verified electronically.
[2016-08-02 13:20] VITALS: BP 155/93; PULSE 77; RESP 18; O2SAT 97
[2016-08-02] MEDS ORDERED: SODIUM CHLORIDE 0.9% FLUSH 5 ML FLUSH IV PRN (14:30)
[2016-08-02 16:32] VITALS: BP 119/82; PULSE 83; RESP 18; O2SAT 97
[2016-08-02] MEDS ORDERED: DEXAMETHASONE 4 MG TAB PO SCH (16:45)
[2016-08-02] MEDS ORDERED: ALBUTEROL SULFATE 90 MCG/ACT HFA 8 GM INHALER INH PRN (16:45)
[2016-08-02] MEDS: ENOXAPARIN SODIUM 30 MG/0.3 ML SYRINGE SQ SCH (17:05)
--- NOTE | 2016-08-02 17:07 | HHI.HP ---
HPI Service [facility] Primary Care Physician [facility] Admission Diagnosis chest pain. Right lung mass. Diagnoses: Chief Complaint: Chest pain Travel History International Travel<30 Days: No Contact w/Intl Traveler <30 Da: No Traveled to Known Affected Are: No History of Present Illness Patient is a 60-year-old right handed male with known history of HIV unknown CD4 count status, history of multiple myeloma ,recent history of CVA left MCA in 07/02/16 who presented to the ER complaining of generalized weakness and left -sided chest pain. Patient states that he was just watching TV when this happened associated with increase pain with deep breaths. Patient denies any fever or chills diaphoresis no hemoptysis. For the past 2 days states he has been bringing up greenish sputum. On further history positive weight loss despite good appetite per patient. His followed by an HIV specialist in [place]. Denies any urinary symptoms denies any diarrhea. On evaluation here at the ER for chest pain, CTA of the chest was done to rule out pulmonary embolism. This was negative however it showed a nodular density on the right lung cannot rule out any cavitary lesion versus mass. Patient was admitted for further evaluation and management. Patient continues to smoke 1 pack every 3 days. Review of Systems Constitutional: COMPLAINS OF: Weight loss (positive weight loss despite good by mouth appetite), DENIES: Diaphoretic episodes, Fatigue, Fever, Weight gain, Chills, Dizziness, Change in appetite, Night Sweats Endocrine: DENIES: Heat/cold intolerance, Polydipsia, Polyuria, Polyphagia Eyes: DENIES: Blurred vision, Diplopia, Eye inflammation, Eye pain, Vision loss , Photosensitivity, Double Vision Ears, nose, mouth, throat: DENIES: Tinnitus, Hearing loss, Vertigo, Nasal discharge, Oral lesions, Throat pain, Hoarseness, Ear Pain, Running Nose, Epistaxis, Sinus Pain, Toothache, Odynophagia Respiratory: DENIES: Apneas, Cough, Snoring, Wheezing, Hemoptysis, Sputum production, Shortness of breath Cardiovascular: COMPLAINS OF: Chest pain Gastrointestinal: DENIES: Abdominal pain, Black stools, Bloody stools, Constipation, Diarrhea, Nausea, Vomiting, Difficulty Swallowing, Anorexia Genitourinary: DENIES: Sexual dysfunction, Urinary frequency, Urinary incontinence, Urgency, Hematuria, Dysuria, Nocturia, Penile Discharge, Testicular Pain, Testicular Swelling Musculoskeletal: DENIES: Joint pain, Muscle aches, Stiffness, Joint Swelling, Back pain, Neck pain Integumentary: DENIES: Abnormal pigmentation, Nail changes, Pruritus, Rash Hematologic/lymphatic: DENIES: Bruising, Lymphadenopathy Immunologic/allergic: DENIES: Eczema, Urticaria Neurologic: COMPLAINS OF: Localized weakness (right-sided weakness from recent CVA) Psychiatric: DENIES: Anxiety, Confusion, Mood changes, Depression, Hallucinations, Agitation, Suicidal Ideation, Homicidal Ideation, Delusions Past Family Social History Past Medical History Left MCA stroke in 07/02/16 Hyperlipidemia HIV Past Surgical History No major surgeries Reported Medications Aspirin Lortab HIV meds dexamethasone 40 mg every Allergies: Coded Allergies: Penicillin (Verified Allergy, Severe, RASH, 07/02/16) Methocarbamol (Verified Allergy, Intermediate, SWELLING AROUND EYES, ) *MDRO Multi-Drug Resistant Organism (Verified Adverse Reaction, Unknown, MRSA, 07/04/16) MRSA screen POSITIVE - 07/02/16 Family History Brother of colon cancer at 61 years old Social History Smokes 1 pack every 3 days Denies any chronic alcohol use Denies any substance abuse Physical Exam Vital Signs Vital Signs Date Time Temp Pulse Resp B/P Pulse Ox O2 Delivery O2 Flow Rate FiO2 08/02/16 16:32 83 18 119/82 97 Nasal Cannula 2 08/02/16 13:20 77 18 155/93 97 Nasal Cannula 2 08/02/16 10:51 97 Nasal Cannula 2 08/02/16 10:44 94 18 153/84 97 08/02/16 10:28 97.8 104 16 128/80 97 Physical Exam GENERAL: Cachectic looking SKIN: No rashes, ecchymoses or lesions. Cool and dry. HEAD: Atraumatic. Normocephalic. No temporal or scalp tenderness. EYES: Pupils equal round and reactive. Extraocular motions intact. No scleral icterus. No injection or drainage. ENT: Nose without bleeding, Throat without erythema, tonsillar hypertrophy or exudate. Uvula midline. Airway patent. NECK: Trachea midline. No JVD or lymphadenopathy. Supple, nontender, no meningeal signs. CARDIOVASCULAR: Regular rate and rhythm without murmurs, gallops, or rubs. RESPIRATORY: Clear to auscultation. Breath sounds equal bilaterally. No wheezes , rales, or rhonchi. GASTROINTESTINAL: Abdomen soft, non-tender, nondistended. No guarding. MUSCULOSKELETAL: Extremities without clubbing, cyanosis, or edema. No joint tenderness, effusion, or edema noted. No calf tenderness. Negative Homans sign bilaterally. NEUROLOGICAL: Awake and alert. Right-sided weakness Normal speech. Laboratory Laboratory Tests Test 08/02/16 10:54 White Blood Count 5.1 Red Blood Count 4.26 Hemoglobin 12.1 Hematocrit 35.4 Mean Corpuscular Volume 83.1 Mean Corpuscular Hemoglobin 28.5 Mean Corpuscular Hemoglobin 34.3 Concent Red Cell Distribution Width 15.2 Platelet Count 170 Mean Platelet Volume 8.0 Neutrophils (%) (Auto) 57.3 Lymphocytes (%) (Auto) 30.8 Monocytes (%) (Auto) 9.3 Eosinophils (%) (Auto) 1.9 Basophils (%) (Auto) 0.7 Neutrophils # (Auto) 2.9 Lymphocytes # (Auto) 1.6 Monocytes # (Auto) 0.5 Eosinophils # (Auto) 0.1 Basophils # (Auto) 0.0 CBC Comment DIFF FINAL Differential Comment Prothrombin Time 11.1 Prothromb Time International 1.0 Ratio Activated Partial 26.4 Thromboplast Time Sodium Level 134 Potassium Level 4.0 Chloride Level 100 Carbon Dioxide Level 25.6 Anion Gap 8 Blood Urea Nitrogen 12 Creatinine 1.24 Estimat Glomerular Filtration 72 Rate Random Glucose 87 Calcium Level 8.9 Total Bilirubin 0.4 Aspartate Amino Transf 38 (AST/SGOT) Alanine Aminotransferase 66 (ALT/SGPT) Alkaline Phosphatase 79 Total Creatine Kinase 282 Troponin I LESS THAN 0.02 B-Type Natriuretic Peptide 18 Total Protein 8.0 Albumin 3.4 Result Diagram: 08/02/16 1054 08/02/16 1054 Imaging Last Impressions Chest X-Ray 08/02/16 1048 Signed Impressions: Service Date/Time: Tuesday, August 02, 2016 11:00 - CONCLUSION: No acute disease. Mike Pisano MD CT Angiography 08/02/16 1048 Signed Impressions: Service Date/Time: Tuesday, August 02, 2016 12:20 - CONCLUSION: 1. No evidence for pulmonary embolism. 2. Irregular density right upper lobe with minimal cavitation, this is nonspecific but could be infectious/inflammatory or neoplastic. Infectious etiologies could include TB and fungal etiologies. Treatment and followup recommended. Mike Pisano MD Assessment and Plan Assessment and Plan 60-year-old male presenting with Atypical Chest pain with history of CAD, hypertension 12-lead EKG LVH strain vs ischemia pattern. Will check troponin for 2 more sets CTA was negative for pulmonary embolism Since patient with history of CAD if troponin at negative for proceed with Lexican Continue on aspirin, beta da, statins Incidental right upper lobe density unable to rule out infectious versus inflammatory versus neoplastic process History of COPD We'll send sputum for Gram stain and fungal culture AFB. We'll consult pulmonary service for evaluation continue on MDI History of HIV We'll get a CD4 count Will continue on retroviral medications Cachexia We'll consult our dietary department We'll start patient on ensure vanilla flavor 3 times a day with meals We'll get physical therapy to evaluate next few days Lovenox for DVT prophylaxis Physician Certification 2 Midnight Certification Type: Admission for Inpatient Services Order for Inpatient Services The services are ordered in accordance with Medicare regulations or non- Medicare payer requirements, as applicable. In the case of services not specified as inpatient-only, they are appropriately provided as inpatient services in accordance with the 2-midnight benchmark. Estimated LOS (days): 3 days is the estimated time the patient will need to remain in the hospital, assuming treatment plan goals are met and no additional complications. Post-Hospital Plan: Not yet determined Sirisha Levine MD Aug 02, 2016 17:07
[2016-08-02 17:59] LABS: AMPHETAMINE, URINE NEG (NEG); BARBITURATES, URINE NEG (NEG); COCAINE, URINE POS (NEG)
[2016-08-02] MEDS: RALTEGRAVIR 400 MG TAB PO SCH (21:00)
[2016-08-02] MEDS: ABACAVIR SULFATE 300 MG TAB PO SCH (21:00)
[2016-08-02] MEDS ORDERED: SODIUM CHLORIDE 0.9% FLUSH 5 ML FLUSH IV SCH (21:00)
[2016-08-02] MEDS: METOPROLOL TARTRATE 25 MG TAB PO SCH (21:00)
[2016-08-02] MEDS: SODIUM CHLORIDE 0.9% FLUSH 5 ML FLUSH IV SCH (21:00)
[2016-08-02] MEDS: RITONAVIR 100 MG TAB PO SCH (21:00)
[2016-08-02 21:55] VITALS: BP 136/75; PULSE 76; RESP 16; TEMP 97.5; O2SAT 100
[2016-08-02] MEDS: ATORVASTATIN 40 MG TAB PO SCH (23:10)
[2016-08-02] MEDS: MIRTAZAPINE 15 MG TAB PO SCH (23:10)
[2016-08-02] MEDS: ACETAMINOPHEN/HYDROcodone 325 MG/5 MG TAB PO PRN (23:10)
[2016-08-03] VITALS (7 sets, daily range): BP systolic 106–126; BP diastolic 62–79; PULSE 61–90; RESP 16–20; TEMP 97.5–98.7; O2SAT 96–98
[2016-08-03] MEDS: RALTEGRAVIR 400 MG TAB PO SCH ×2 (08:41→22:00)
[2016-08-03] MEDS: DARUNAVIR 800 MG TAB PO SCH (08:41)
[2016-08-03] MEDS: SODIUM CHLORIDE 0.9% FLUSH 5 ML FLUSH IV SCH ×2 (08:41→22:02)
[2016-08-03] MEDS: RITONAVIR 100 MG TAB PO SCH ×2 (08:41→22:00)
[2016-08-03] MEDS: THIAMINE HCL 100 MG TAB PO SCH (08:41)
[2016-08-03] MEDS: ABACAVIR SULFATE 300 MG TAB PO SCH ×2 (08:42→22:02)
[2016-08-03] MEDS: METOPROLOL TARTRATE 25 MG TAB PO SCH ×2 (08:42→22:02)
[2016-08-03] MEDS: ASPIRIN 325 MG TAB PO SCH (08:44)
[2016-08-03] MEDS: ACETAMINOPHEN/HYDROcodone 325 MG/5 MG TAB PO PRN ×2 (08:44→22:01)
[2016-08-03] MEDS: amLODIPine BESYLATE 5 MG TAB PO SCH (08:44)
[2016-08-03] MEDS ORDERED: PYRIMETHAMINE 25 MG PO SCH (09:00)
[2016-08-03] MEDS: SODIUM CHLOR 0.9% 1000 ML INJ 1,000 ML IV SCH (09:01)
--- NOTE | 2016-08-03 11:22 | HHI.PR ---
Subjective Remarks no chest pain complains afebrile po better telemetry- SR afebrile, no hemoptysis, no sputum Objective Vitals Vital Signs Date Time Temp Pulse Resp B/P Pulse Ox O2 Delivery O2 Flow Rate FiO2 08/03/16 08:00 97.9 69 18 126/79 96 08/03/16 04:04 Nasal Cannula 2.00 08/03/16 04:00 97.5 61 16 124/69 96 08/03/16 00:00 98.0 78 16 124/74 96 08/03/16 00:00 Nasal Cannula 2.00 08/02/16 21:55 97.5 76 16 136/75 100 08/02/16 21:10 Nasal Cannula 2.00 08/02/16 16:32 83 18 119/82 97 Nasal Cannula 2 08/02/16 13:20 77 18 155/93 97 Nasal Cannula 2 I/O 08/02/16 08/02/16 08/02/16 08/03/16 08/03/16 08/03/16 07:00 15:00 23:00 07:00 15:00 23:00 Intake Total 1496 ml Output Total 400 ml 550 ml Balance -400 ml 1496 ml -550 ml Intake Oral 120 ml IV Total 1376 ml Output Urine Total 400 ml 550 ml # Voids 1 Result Diagram: 08/02/16 1054 08/02/16 1054 Imaging Last Impressions Chest X-Ray 08/02/16 1048 Signed Impressions: Service Date/Time: Tuesday, August 02, 2016 11:00 - CONCLUSION: No acute disease. Mike Pisano MD CT Angiography 08/02/16 1048 Signed Impressions: Service Date/Time: Tuesday, August 02, 2016 12:20 - CONCLUSION: 1. No evidence for pulmonary embolism. 2. Irregular density right upper lobe with minimal cavitation, this is nonspecific but could be infectious/inflammatory or neoplastic. Infectious etiologies could include TB and fungal etiologies. Treatment and followup recommended. Mike Pisano MD Objective Remarks awake and alert, apathetic- appears depressed anicteric no nuchal rigidity no hrush lungs no rales or wheezes regular rhythm abdomen soft, nontender extremities no edema moves all extremities spontaneously A/P Assessment and Plan Assessment and Plan 60-year-old male presenting with Atypical Chest pain with history of CAD, hypertension 12-lead EKG LVH strain vs ischemia pattern troponins negative CTA was negative for pulmonary embolism Since patient with history of CAD for proceed with Lexican Continue on aspirin, beta da, statins Incidental right upper lobe density unable to rule out infectious versus inflammatory versus neoplastic process- immunocompromised state History of COPD We'll send sputum for Gram stain and fungal culture AFB. consult pulmonary service for evaluation continue on MDI get a quantiferon PUlmonary consult/ID consult History of HIV pending CD4 count Will continue on retroviral medications Cachexia We'll consult our dietary department We'll start patient on ensure vanilla flavor 3 times a day with meals PT consult in am Lovenox for DVT prophylaxis Sirisha Levine MD Aug 03, 2016 11:22
--- NOTE | 2016-08-03 15:40 | MB ---
cc: MARY CARO DATE OF CONSULTATION: 08/03/[address] Levine. REASON FOR CONSULTATION COPD with lung infiltrate. HISTORY OF PRESENT ILLNESS Mr. Dowd is a pleasant 60-year-old thin built -Iranian male with history of HIV disease since 2011. The patient follows with HIV specialist in [place]. He also follows with Dr. Vogt at [facility]. The patient came to the hospital with weakness, shortness of breath, worse with deep breaths. Denied fever or chills. No night sweats. No nausea or vomiting. The patient was evaluated in the hospital. He had a CT of the chest done and does not show any pulmonary embolism, it shows that he has irregular density in the right upper lobe with minimal cavitation in it, possible infection or inflammatory process. His CBC showed WBC count of 5.1, hemoglobin 12.1, hematocrit 35.4, MCV 83, platelet count 170. Sodium 134, potassium 4.0, chloride 100, CO2 25, BUN 12, creatinine 1.24, INR is 1.0. His toxicology screen is positive for cocaine and opioids. PAST MEDICAL HISTORY Past medical history is significant for: 1. HIV disease. 2. COPD. 3. Hyperlipidemia. 4. History of CVA with mild right-sided weakness. MEDICATIONS He is currently takin. Amlodipine 5 mg a day. 2. Aspirin 325 mg a day. 3. Prezista 800 mg a day. 4. Thiamine 100 mg a day. 5. Ziagen 600 mg q. 12-hours. 6. Lipitor 40 mg a day. 7. Metoprolol 12.5 mg twice a day. 8. Mirtazapine 15 mg at nighttime. 9. Isentress 400 mg q. 12-hours. 10. Ritonavir 100 mg twice a day. 11. Lovenox 30 mg a day. 12. [place] 5/325 q.4 hours. 13. Albuterol/Atrovent nebulizer treatment. 14. Decadron 40 mg p.o. ALLERGIES Allergies to PENICILLIN. SOCIAL HISTORY He is , lives with his brother. He used to work as a cook. He has history of smoking and continues to smoke one-third pack of cigarettes a day. Drinks occasionally. He has history of marijuana use. FAMILY HISTORY He has five children. REVIEW OF SYSTEMS He has loss of weight, walks short distance with the help of a cane. Does not have any fever or chills. No chest pain. No DVT or pulmonary embolism. PHYSICAL EXAMINATION GENERAL: Thin-built elderly male, weak, not in acute distress. VITAL SIGNS: Blood pressure 110/62, heart rate 69, respiration 18, temperature 97.5. HEENT: Pupils are equal and reactive to light. Oral mucosa and nasal mucosa normal. NECK: Supple. JVP not raised. CHEST: Equal air entry bilaterally. No rhonchi. CVS: S1, S2 normal. ABDOMEN: Benign. EXTREMITIES: No edema. IMPRESSION 1. Right upper lobe density with mild cavitation in it, possible scarring or inflammatory or infectious process. 2. HIV disease. 3. COPD. 4. Nicotine use. 5. Hypertension. PLAN I discussed with the patient, advised him to quit smoking. Will give aerosol treatments with Albuterol and Atrovent. Continue with HIV medications, Lovenox 30 mg a day. Will check ___ cultures. He will need a repeat CT scan in about 6 weeks to make sure the infiltrates have cleared. Further treatment will depend on the course in the hospital. Thank you Dr. Levine for this consultation. MD TEMO Mulligan/CAROLYN /1:18 PM /2:55 PM
[2016-08-03] MEDS: ENOXAPARIN SODIUM 30 MG/0.3 ML SYRINGE SQ SCH (17:43)
[2016-08-03] MEDS: ATORVASTATIN 40 MG TAB PO SCH (22:01)
[2016-08-03] MEDS: MIRTAZAPINE 15 MG TAB PO SCH (22:02)
[2016-08-04] VITALS (7 sets, daily range): BP systolic 105–128; BP diastolic 67–80; PULSE 72–88; RESP 16–20; TEMP 98.1–98.6; O2SAT 96–98
[2016-08-04] MEDS ORDERED: [UNRECOGNIZED DRUG - OTHER] PO SCH (09:00)
[2016-08-04] MEDS ORDERED: REGADENOSON INJ 0.4 MG/5 ML SYR ONE (09:07)
[2016-08-04] MEDS: SODIUM CHLORIDE 0.9% FLUSH 5 ML FLUSH IV SCH (11:06)
[2016-08-04] MEDS: METOPROLOL TARTRATE 25 MG TAB PO SCH (11:06)
[2016-08-04] MEDS: ABACAVIR SULFATE 300 MG TAB PO SCH (11:06)
[2016-08-04] MEDS: THIAMINE HCL 100 MG TAB PO SCH (11:06)
[2016-08-04] MEDS: RALTEGRAVIR 400 MG TAB PO SCH (11:06)
[2016-08-04] MEDS: RITONAVIR 100 MG TAB PO SCH (11:06)
[2016-08-04] MEDS: ASPIRIN 325 MG TAB PO SCH (11:06)
[2016-08-04] MEDS: DARUNAVIR 800 MG TAB PO SCH (11:06)
[2016-08-04] MEDS: amLODIPine BESYLATE 5 MG TAB PO SCH (11:06)
--- NOTE | 2016-08-04 11:24 | RADRPT ---
EXAM DATE/TIME: 08/04/2016 08:23 [place] COMPARISON: MYOCARDIAL PERF PHARM SPECT, GATED W/EF, December 07, 2012, 9:02. INDICATIONS: Substernal chest pain with dyspnea and weakness. Angina. DOSE: 25.8 mCi Tc99m Myoview at stress. 8.1 mCi Tc99m Myoview at rest. 0.4 mg Lexiscan STRESS SYMPTOMS: None. EJECTION FRACTION: 46% MEDICAL HISTORY: HIV. Stroke SURGICAL HISTORY: None. ENCOUNTER: Initial ACUITY: 1 day PAIN SCALE: 5/10 LOCATION: Substernal chest TECHNIQUE: The patient underwent pharmacologic stress with infusion of prescribed dose. Continuous ECG tracing was monitored during stress. Gated SPECT imaging was performed after stress and conventional SPECT i maging was performed at rest. The examination was performed on a SPECT/CT scanner, both attenuation and non-corrected datasets were reviewed. FINDINGS: The gated [place] loop images demonstrate no focal wall motion abnormality. Left ventricular ejection f raction is calculated at 46%. The cardiac SPECT stress and rest images demonstrate no fixed or reversible defect to suggest infarct or ischemia. CONCLUSION: No infarct, ischemia or focal wall motion abnormality. The left ventricular ejection fraction is serjio culated at 46%. RISK CATEGORY: Low risk (less than 1% annual mortality rate). Dragan Price MD on August 04, 2016 at 10:49 Board Certified Radiologist. This report was verified electronically.
--- NOTE | 2016-08-04 12:24 | EKG ---
Date Performed: 08/02/2016 Time Performed: 10:46:03 PTAGE: 60 years EKG: Sinus rhythm POSSIBLE LEFT ATRIAL ENLARGEMENT POSSIBLE LEFT VENTRICULAR HYPERTROPHY POSSIBLE SEPTAL MYOCARDIAL IN FARCTION ABNORMAL ECG PREVIOUS TRACING : 08/02/2016 10.45 DOCTOR: Adiel Barraza Interpretating Date/Time 08/04/2016 12:22:17
[2016-08-04] MEDS: SODIUM CHLOR 0.9% 1000 ML INJ 1,000 ML IV SCH (15:56)
[2016-08-04] MEDS ORDERED: ENALAPRIL MALEATE 2.5 MG TAB PO SCH (16:15)
--- NOTE | 2016-08-04 16:15 | HHI.PR ---
Subjective Remarks no complains no weakness, chest pains or shortness of breath Objective Vitals Vital Signs Date Time Temp Pulse Resp B/P Pulse Ox O2 Delivery O2 Flow Rate FiO2 08/04/16 16:04 84 08/04/16 12:01 98.4 88 18 116/73 96 08/04/16 11:33 79 08/04/16 11:00 Nasal Cannula 2.00 08/04/16 08:01 98.3 80 16 128/80 96 08/04/16 04:00 98.1 72 20 107/73 98 08/04/16 04:00 Nasal Cannula 2.00 08/04/16 00:00 Nasal Cannula 2.00 08/04/16 00:00 98.6 83 20 105/67 96 08/03/16 22:00 Nasal Cannula 2.00 08/03/16 20:00 98.2 74 20 118/76 97 08/03/16 20:00 84 08/03/16 18:01 90 I/O 08/03/16 08/03/16 08/03/16 08/04/16 08/04/16 08/04/16 06:59 14:59 22:59 06:59 14:59 22:59 Intake Total 895 ml 715 ml 601 ml Output Total 550 ml 600 ml Balance -550 ml 295 ml 715 ml 601 ml Intake Oral 480 ml 420 ml IV Total 415 ml 295 ml 601 ml Output Urine Total 550 ml 600 ml # Voids 2 1 # Bowel Movements 0 0 Result Diagram: 08/02/16 1054 08/02/16 1054 Imaging Last Impressions Myocardial Perfusion Scan Nuc Med 08/04/16 0600 Signed Impressions: Service Date/Time: Thursday, August 04, 2016 08:23 - CONCLUSION: No infarct, ischemia or focal wall motion abnormality. The left ventricular ejection fraction is calculated at 46%%. RISK CATEGORY: Low risk (less than 1%% annual mortality rate). Dragan Price MD Chest X-Ray 08/02/16 1048 Signed Impressions: Service Date/Time: Tuesday, August 02, 2016 11:00 - CONCLUSION: No acute disease. Mike Pisano MD CT Angiography 08/02/16 1048 Signed Impressions: Service Date/Time: Tuesday, August 02, 2016 12:20 - CONCLUSION: 1. No evidence for pulmonary embolism. 2. Irregular density right upper lobe with minimal cavitation, this is nonspecific but could be infectious/inflammatory or neoplastic. Infectious etiologies could include TB and fungal etiologies. Treatment and followup recommended. Mike Pisano MD Objective Remarks awake and alert, apathetic- appears depressed anicteric no nuchal rigidity no thrush lungs no rales or wheezes regular rhythm abdomen soft, nontender extremities no edema moves all extremities spontaneously A/P Assessment and Plan Assessment and Plan 60-year-old male presenting with Atypical Chest pain with history of CAD, hypertension 12-lead EKG LVH strain vs ischemia pattern troponins negative CTA was negative for pulmonary embolism Lexiscan negative for any acute ischemia, EF 46% Continue on aspirin, beta da, statins. add low dose GELA- Enalapril 2.5 mg po daily. DC amlodipine Incidental right upper lobe density unable to rule out infectious versus inflammatory versus neoplastic process- immunocompromised state History of COPD d/w Dr. Figueroa- no plans for bronchoscopy at this time- ff up with continue on MDI. [facility] 6 weeks History of HIV pending CD4 count Will continue on retroviral medications Cachexia advise on lifestyle modification ensure vanilla flavor 3 times a day with meals DC home today [facility] Sirisha Levine MD Aug 04, 2016 16:15
[2016-08-04] MEDS ORDERED: ENAL2.5T PO (17:28)
[2016-08-04] MEDS: ACETAMINOPHEN/HYDROcodone 325 MG/5 MG TAB PO PRN (18:27)
--- NOTE | 2016-08-04 19:24 | HHI.PR ---
Subjective Remarks 60 AA male with HIV, COPD,Nicotine use CT RUL infilt/density Denies sob Anxious to go home Objective Vital Signs Vital Signs Date Time Temp Pulse Resp B/P Pulse Ox O2 Delivery O2 Flow Rate FiO2 08/04/16 16:04 84 08/04/16 16:01 98.5 82 18 120/72 97 08/04/16 12:01 98.4 88 18 116/73 96 08/04/16 11:33 79 08/04/16 11:00 Nasal Cannula 2.00 08/04/16 08:01 98.3 80 16 128/80 96 08/04/16 04:00 98.1 72 20 107/73 98 08/04/16 04:00 Nasal Cannula 2.00 08/04/16 00:00 Nasal Cannula 2.00 08/04/16 00:00 98.6 83 20 105/67 96 08/03/16 22:00 Nasal Cannula 2.00 08/03/16 20:00 98.2 74 20 118/76 97 08/03/16 20:00 84 I/O 08/03/16 08/03/16 08/03/16 08/04/16 08/04/16 08/04/16 07:00 15:00 23:00 07:00 15:00 23:00 Intake Total 895 ml 715 ml 240 ml 601 ml Output Total 550 ml 600 ml 600 ml Balance -550 ml 295 ml 715 ml -360 ml 601 ml Intake Oral 480 ml 420 ml 240 ml IV Total 415 ml 295 ml 601 ml Output Urine Total 550 ml 600 ml 600 ml # Voids 2 1 # Bowel Movements 0 0 2 Result Diagram: 08/02/16 1054 08/02/16 1054 Objective Remarks GENERAL: MBMN AA male,NAD SKIN: Warm and dry. HEAD: Normocephalic. EYES: No scleral icterus. No injection or drainage. NECK: Supple, trachea midline. No JVD or lymphadenopathy. CARDIOVASCULAR: Regular rate and rhythm without murmurs, gallops, or rubs. RESPIRATORY: Breath sounds equal bilaterally. No accessory muscle use. GASTROINTESTINAL: Abdomen soft, non-tender, nondistended. MUSCULOSKELETAL: No cyanosis, or edema. BACK: Nontender without obvious deformity. No CVA tenderness. A/P Assessment and Plan RUL Density, scarring vs infectionvs Malig ( less likly) COPD HIV disease Nicotine use PLAN: DC Plans underway DW Pt that he will need rpt CT chest 6 weeks to fu on Lung density If Lung density persists, he will need lung bs He follows at [facility] He will Follow with , at [facility] Yahir Figueroa MD Aug 04, 2016 19:23
[2016-08-05 23:53] LABS: CD4/CD8 RATIO 0.2 (0.86-5.00)
[2016-08-06 16:44] LABS: MITOGEN MINUS NIL RESULT >10.00 IU/mL (()); NIL RESULT 0.07 IU/mL (()); QUANTIFERON TB GOLD RESULT Negative (Negative)
== END 2016-08-04 19:00 | disposition home or self-care (01) | DRG 313 ==
LOC: NEPA 10:25 → NEDA 14:25 → N04A 21:12
PROVIDERS: ADMIT Hospitalist; ATTEND Hospitalist
DX: R07.89 Other chest pain (principal); I25.2 Old myocardial infarction; R64 Cachexia; I50.9 Heart failure, unspecified; J44.9 Chronic obstructive pulmonary disease, unspecified; C90.01 Multiple myeloma in remission; I69.351 Hemiplegia and hemiparesis following cerebral infarction affecting right dominant side; R91.8 Other nonspecific abnormal finding of lung field; I10 Essential (primary) hypertension; F32.9 Major depressive disorder, single episode, unspecified; K21.9 Gastro-esophageal reflux disease without esophagitis; F41.9 Anxiety disorder, unspecified; B19.20 Unspecified viral hepatitis C without hepatic coma; I25.10 Atherosclerotic heart disease of native coronary artery without angina pectoris; Z79.82 Long term (current) use of aspirin; E78.5 Hyperlipidemia, unspecified; M19.90 Unspecified osteoarthritis, unspecified site; J45.909 Unspecified asthma, uncomplicated; E78.00 Pure hypercholesterolemia, unspecified; E11.9 Type 2 diabetes mellitus without complications; G47.30 Sleep apnea, unspecified; F17.210 Nicotine dependence, cigarettes, uncomplicated; F12.90 Cannabis use, unspecified, uncomplicated; Z21 Asymptomatic human immunodeficiency virus [HIV] infection status; Z80.0 Family history of malignant neoplasm of digestive organs; Z88.0 Allergy status to penicillin
CPT/HCPCS: 71010; 71275; 78452; 80053; 80307; 82550; 83880; 84484; 85025; 85610; 85730; 86355; 86357; 86359; 86360; 86480; 87015; 87070; 87102; 87116; 87205; 87206; 93005; 93017; 96361; 96374; 96375; A9502; J1650; J2270; J2405; J2785; J7030; Q9967

== ENCOUNTER 2016-08-08 14:02 | Inpatient (IN) | payer OTHER ==
[~2016-08-08] VITALS: Ht 167.6 cm; Wt 55.0 kg
[~2016-08-08 14:02] MED LIST changes: -AMLO5TAB2 PO; +ENAL2.5T PO; -HYDR-3516 PO
[2016-08-08 14:45] VITALS: BP 137/95; PULSE 94; PULSE 97; RESP 28; TEMP 99.7; O2SAT 97
[2016-08-08] MEDS ORDERED: SODIUM CHLORIDE 0.9% FLUSH 5 ML FLUSH IVF PRN ×2 (15:15→18:30)
--- NOTE | 2016-08-08 15:22 | PD ---
HPI Chief Complaint: Respiratory Symptoms Time Seen by Provider: 15:19 Travel History International Travel<30 days: No Contact w/Intl Traveler<30days: No Traveled to known affect area: No History of Present Illness HPI 60-year-old male presents to the emergency department via EMS for evaluation of hemoptysis, chest pain, abdominal pain. Patient states that he started coughing up blood at 11 AM. He states it started with sputum and then progressed to blood. He states he also had blood coming from his nose. Patient has a history of HIV, multiple myeloma, CVA, COPD, CAD, HTN. Patient states he was in remission for multiple trauma the end of last year. Patient was recently admitted earlier this month for a right lung mass, chest pain. He states he followed up in [place], but does not know plan of care. Patient reports increasing shortness of breath. He states that after arriving the emergency department, he also started with left-sided chest pain and epigastric abdominal pain. Patient is a current tobacco smoker. He also uses marijuana. Patient does report being out of his antivirals since last admission. PFSH Past Medical History Hx Anticoagulant Therapy: Yes (ASA) Arthritis: Yes Asthma: Yes Autoimmune Disease: Yes Blood Disorders: No Anxiety: Yes Depression: Yes Heart Rhythm Problems: Yes Cancer: Yes (MULTIPLE MYELOMA (REMISSION)) Cardiac Catheterization: No Cardiovascular Problems: Yes (HTN, OR) High Cholesterol: Yes Chemotherapy: Yes Chest Pain: Yes Congestive Heart Failure: Yes COPD: Yes Cerebrovascular Accident: Yes Diabetes: Yes Diminished Hearing: No Endocrine: Yes Gastrointestinal Disorders: Yes GERD: Yes Genitourinary: Yes (PT REPORTS URGENCY. ) Headaches: Yes Hepatitis: Yes (HEP C) Hiatal Hernia: No Heparin Induced Thrombocytopen: No Hypertension: Yes Immune Disorder: Yes (HIV 2010) Implanted Vascular Access Dvce: Yes Kidney Stones: No Musculoskeletal: Yes Neurologic: Yes Psychiatric: Yes Reproductive: No Respiratory: Yes (COPD) Immunizations Current: No Migraines: Yes Myocardial Infarction: Yes Radiation Therapy: No Renal Failure: No Seizures: No Sleep Apnea: No Thyroid Disease: No Ulcer: No Past Surgical History Abdominal Surgery: No AICD: No Appendectomy: No Arteriovenous Shunt: No Body Medical Devices: METAL PLATES IN JAW AND SKULL Cardiac Surgery: No Cholecystectomy: No Coronary Artery Bypass Graft: No Ear Surgery: No Endocrine Surgery: No Eye Surgery: No Genitourinary Surgery: No Gynecologic Surgery: No Insulin Pump: No Joint Replacement: No Neurologic Surgery: No Oral Surgery: Yes Pacemaker: No Thoracic Surgery: No Other Surgery: Yes (BONE MARROW BIOPSY) Social History Alcohol Use: Yes (occasional) Tobacco Use: Yes (1-2 CIG DAILY) Substance Use: Yes (MARIJUANA , and cocaine ocasionally) Allergies-Medications (Allergen,Severity, Reaction): Coded Allergies: Penicillin (Verified Allergy, Severe, RASH, 08/08/16) Methocarbamol (Verified Allergy, Intermediate, SWELLING AROUND EYES, ) *MDRO Multi-Drug Resistant Organism (Verified Adverse Reaction, Unknown, MRSA, 08/08/16) MRSA screen POSITIVE - 07/02/16 Reported Meds & Prescriptions Reported Meds & Active Scripts Active Enalapril (Enalapril Maleate) 2.5 Mg Tab 2.5 Mg PO DAILY Lipitor (Atorvastatin Calcium) 40 Mg Tab 40 Mg PO HS Aspirin 325 Mg Tab 325 Mg PO DAILY Metoprolol Tartrate 25 Mg Tab 12.5 Mg PO BID Reported Ventolin Hfa 18 GM Inh (Albuterol Sulfate) 90 Mcg/Act Aer 2 Puff INH Q4H PRN Ziagen (Abacavir Sulfate) 300 Mg Tab 600 Mg PO Q12HR Hazardous agent; use appropriate precautions for handling & disposal. Daraprim (Pyrimethamine) 25 Mg Tab 50 Mg PO DAILY Prezista (Darunavir) 800 Mg Tab 800 Mg PO DAILY Dexamethasone 4 Mg Tab 40 Mg PO WEEKLY ON THURSDAYS Mirtazapine 15 Mg Tab 15 Mg PO HS Isentress (Raltegravir) 400 Mg Tab 400 Mg PO Q12HR Norvir (Ritonavir) 100 Mg Cap 100 Mg PO BID Thiamine (Thiamine HCl) 100 Mg Tab 100 Mg PO DAILY Review of Systems Except as stated in HPI: all other systems reviewed are Neg Physical Exam Narrative GENERAL: Well-developed well-nourished male patient, ambulatory. Afebrile. SKIN: Warm and dry. HEAD: Normocephalic. Atraumatic. EYES: No scleral icterus. No injection or drainage. NECK: Supple, trachea midline. No JVD or lymphadenopathy. CARDIOVASCULAR: Regular rate and rhythm without murmurs, gallops, or rubs. RESPIRATORY: Breath sounds equal bilaterally. No accessory muscle use. GASTROINTESTINAL: Abdomen soft and nondistended. Patient has tenderness to palpation of the epigastric region. MUSCULOSKELETAL: No cyanosis, or edema. BACK: Nontender without obvious deformity. No CVA tenderness. Data Data Last Documented VS Vital Signs Date Time Temp Pulse Resp B/P Pulse Ox O2 Delivery O2 Flow Rate FiO2 08/08/16 18:02 95 Nasal Cannula 2 08/08/16 16:19 99.0 95 22 136/83 Orders Complete Blood Count With Diff (08/08/16 15:15) Comprehensive Metabolic Panel (08/08/16 15:15) B-Type Natriuretic Peptide (08/08/16 15:15) Act Partial Throm Time (Ptt) (08/08/16 15:15) Prothrombin Time / Inr (Pt) (08/08/16 15:15) Magnesium (Mg) (08/08/16 15:15) Ckmb (Isoenzyme) Profile (08/08/16 15:15) Troponin I (08/08/16 15:15) Urinalysis - C+S If Indicated (08/08/16 15:15) Iv Access Insert/Monitor (08/08/16 15:15) Electrocardiogram (08/08/16 15:15) Ecg Monitoring (08/08/16 15:15) Oximetry (08/08/16 15:15) Oxygen Administration (08/08/16 15:15) Chest, Single Ap (08/08/16 15:15) Sodium Chloride 0.9% Flush (Ns Flush) (08/08/16 15:15) Lipase (08/08/16 15:15) Blood Culture (08/08/16 15:15) Lactic Acid Sepsis Protocol (08/08/16 15:15) Sputum Culture And Gram Stain (08/08/16 16:37) CKMB (08/08/16 16:35) CKMB% (08/08/16 16:35) Ct Abd/Pel W Iv Contrast(Rout) (08/08/16 ) Iohexol 350 Inj (Omnipaque 350 Inj) (08/08/16 18:15) Sodium Chloride 0.9% Flush (Ns Flush) (08/08/16 18:30) Aztreonam Inj (Azactam Inj) (08/08/16 18:30) Azithromycin Inj (Zithromax Inj) (08/08/16 18:30) Methylprednisolone So Succ Inj (Solumedr (08/08/16 19:30) Admit Order (Ed Use Only) (08/08/16 19:27) Consult Pulmonology (08/08/16 ) Labs Laboratory Tests Test 08/08/16 16:35 White Blood Count 8.8 TH/MM3 Red Blood Count 4.03 MIL/MM3 Hemoglobin 11.4 GM/DL Hematocrit 33.8 % Mean Corpuscular Volume 83.9 FL Mean Corpuscular Hemoglobin 28.2 PG Mean Corpuscular Hemoglobin 33.6 % Concent Red Cell Distribution Width 15.7 % Platelet Count 211 TH/MM3 Mean Platelet Volume 7.9 FL Neutrophils (%) (Auto) 59.3 % Lymphocytes (%) (Auto) 27.1 % Monocytes (%) (Auto) 9.8 % Eosinophils (%) (Auto) 3.6 % Basophils (%) (Auto) 0.2 % Neutrophils # (Auto) 5.2 TH/MM3 Lymphocytes # (Auto) 2.4 TH/MM3 Monocytes # (Auto) 0.9 TH/MM3 Eosinophils # (Auto) 0.3 TH/MM3 Basophils # (Auto) 0.0 TH/MM3 CBC Comment DIFF FINAL Differential Comment Prothrombin Time 10.7 SEC Prothromb Time International 1.0 RATIO Ratio Activated Partial 26.6 SEC Thromboplast Time Urine Color YELLOW Urine Turbidity HAZY Urine pH 7.5 Urine Specific [place] 1.018 Urine Protein TRACE mg/dL Urine Glucose (UA) NEG mg/dL Urine Ketones NEG mg/dL Urine Occult Blood NEG Urine Nitrite NEG Urine Bilirubin NEG Urine Urobilinogen 4.0 MG/DL Urine Leukocyte Esterase NEG Urine WBC 1 /hpf Urine Mucus FEW /lpf Microscopic Urinalysis Comment CULT NOT INDICATED Sodium Level 140 MEQ/L Potassium Level 4.0 MEQ/L Chloride Level 106 MEQ/L Carbon Dioxide Level 25.6 MEQ/L Anion Gap 8 MEQ/L Blood Urea Nitrogen 10 MG/DL Creatinine 1.05 MG/DL Estimat Glomerular Filtration 88 ML/MIN Rate Random Glucose 92 MG/DL Lactic Acid Level 1.0 mmol/L Calcium Level 8.8 MG/DL Magnesium Level 1.9 MG/DL Total Bilirubin 0.2 MG/DL Aspartate Amino Transf 24 U/L (AST/SGOT) Alanine Aminotransferase 43 U/L (ALT/SGPT) Alkaline Phosphatase 75 U/L Total Creatine Kinase 148 U/L Creatine Kinase MB 0.6 NG/ML Troponin I LESS THAN 0.02 NG/ML B-Type Natriuretic Peptide 10 PG/ML Total Protein 7.9 GM/DL Albumin 3.1 GM/DL Lipase 191 U/L [facility] Medical Decision Making Medical Screen Exam Complete: Yes Emergency Medical Condition: Yes Medical Record Reviewed: Yes Interpretation(s) chest x-ray - CONCLUSION: 1. Right basilar patchiness consistent with atelectasis and/or infiltrate. Clinical correlation is recommended. 2. Degenerative changes and multilevel compression deformities involving the thoracic and lumbar spine. Differential Diagnosis Pneumonia versus COPD exacerbation versus lung mass versus electrolyte abnormality versus pancreatitis versus cholecystitis Narrative Course 60-year-old male presents to the emergency department for evaluation of hemoptysis and increased shortness of breath that started 11 AM this morning. Patient was recently diagnosed with a right lung mass with a history of HIV and multiple myeloma. Patient states he was on a baby aspirin, but has not taken it recently. EKG, CBC, CMP, BNP, PTT, PTT/INR, magnesium, CK, troponin, UA, chest x-ray, lipase, blood cultures 2, lactic acid are ordered and pending. Patient has recent CT pulmonary angiogram on August 02 which showed no evidence for pulmonary embolism. EKG shows sinus rhythm, heart rate 94. CBC shows no acute abnormality. CMP shows no acute abnormality. Lipase is 191. CK is 148. Troponin is less than 0.02. Magnesium is 1.9. BNP is 10. Lactic acid is 1.0. Collection no acute abnormality. UA shows no evidence for acute infection. Chest x-ray shows right basilar patchiness consistent with atelectasis and/or infiltrate. Patient still complaining of abdominal pain. CT abdomen/pelvis with IV contrast is ordered and pending. CT abdomen/pelvis shows 1. No acute findings within the abdomen and pelvis; 2. Right lower lobe consolidation most characteristic of pneumonia or aspiration; 3. Bony findings characteristic of multiple myeloma history. [facility] is paged for admission. Dr. Marie accepted admission. Diagnosis Primary Impression: Pneumonia Qualified Code: J18.1 - Pneumonia of right lower lobe due to infectious organism Additional Impressions: Chest pain Qualified Code: R07.9 - Chest pain, unspecified type HIV (human immunodeficiency virus infection) Admitting Information Admitting Physician Requests: Admit Ellen Littlejohn Aug 08, 2016 15:22
[2016-08-08 16:19] VITALS: BP 136/83; PULSE 95; RESP 22; TEMP 99; O2SAT 96
--- NOTE | 2016-08-08 16:46 | RADRPT ---
EXAM DATE/TIME: 08/08/2016 15:48 [facility] COMPARISON: CHEST SINGLE AP, August 02, 2016, 11:00. INDICATIONS : Cough. Shortness of breath MEDICAL HISTORY : Hypertension. Diabetes mellitus type II. Asthma SURGICAL HISTORY : None. ENCOUNTER: Initial ACUITY: 1 day PAIN SCORE: 0/10 LOCATION: Bilateral chest FINDINGS: Right basilar patchiness is noted consistent with atelectasis and/or infiltrate. The left lung is cl ear. Degenerative changes and multilevel compression deformities are noted within the thoracolumbar s pine. CONCLUSION: 1. Right basilar patchiness consistent with atelectasis and/or infiltrate. Clinical correlation is re commended. 2. Degenerative changes and multilevel compression deformities involving the thoracic and lumbar spin e. Dragan Price MD on August 08, 2016 at 16:38 Board Certified Radiologist. This report was verified electronically.
[2016-08-08 16:55] LABS: AUTOMATED NEUTROPHIL # 5.2 TH/MM3 (1.8-7.7); BASOPHIL % 0.2 % (0.0-2.0); EOSINOPHIL # 0.3 TH/MM3 (0-0.4); EOSINOPHIL % 3.6 % (0.0-4.0); HEMATOCRIT 33.8 % (39.0-51.0); HEMO FLAGS DIFF FINAL; LYMPH % 27.1 % (9.0-44.0); LYMPHOCYTE # 2.4 TH/MM3 (1.0-4.8); MEAN CELL VOLUME 83.9 FL (80.0-100.0); MEAN CORPUSCULAR HEMOGLOBIN 28.2 PG (27.0-34.0); MEAN CORPUSCULAR HGB CONC 33.6 % (32.0-36.0); MONO % 9.8 % (0.0-8.0); NEUT % 59.3 % (16.0-70.0); PLATELET COUNT 211 TH/MM3 (150-450); RED BLOOD COUNT 4.03 MIL/MM3 (4.50-5.90); RED CELL DISTRIBUTION WIDTH 15.7 % (11.6-17.2); WHITE BLOOD COUNT 8.8 TH/MM3 (4.0-11.0)
[2016-08-08 17:04] LABS: BLOOD, URINE NEG (NEG); COMMENT (UR) CULT NOT INDICATED; CULTURE IF INDICATED CULT NOT INDICATED; GLUCOSE,URINE NEG (NEG); KETONE, URINE NEG (NEG); MUCUS URINE FEW /lpf (OCC); NITRITE,URINE NEG (NEG); PH, URINE 7.5 (5.0-8.5); URINE COLOR YELLOW (YELLW/STRAW)
[2016-08-08 17:08] LABS: APTT (PATIENT) 26.6 SEC (24.3-30.1); PROTHROMBIN TIME - PATIENT 10.7 SEC (9.8-11.6)
[2016-08-08 17:11] LABS: ALT (GPT) 43 U/L (12-78); ANION GAP 8 MEQ/L (5-15); AST (GOT) 24 U/L (15-37); BICARBONATE 25.6 MEQ/L (21.0-32.0); BLOOD UREA NITROGEN 10 MG/DL (7-18); CHLORIDE 106 MEQ/L (98-107); GLOMERULAR FILTRATION RATE 88 ML/MIN (>89); MAGNESIUM 1.9 MG/DL (1.5-2.5); SODIUM (NA) 140 MEQ/L (136-145)
[2016-08-08 17:14] LABS: ALKALINE PHOSPHATASE 75 U/L (45-117); CREATINE KINASE 148 U/L (39-308); TOTAL BILIRUBIN ADULT 0.2 MG/DL (0.2-1.0)
[2016-08-08 17:26] LABS: CKMB 0.6 NG/ML (0.5-3.6)
[2016-08-08] MEDS ORDERED: IOHEXOL 350 MG/ML 10 ML VIAL (for RAD DIAG) IV ONE (18:15)
[2016-08-08] MEDS ORDERED: AZTREONAM INJ 2,000 MG in SODIUM CHLORIDE 0.9% INJ 100 ML IV ONE (18:30)
[2016-08-08] MEDS ORDERED: AZITHROMYCIN INJ 500 MG in SODIUM CHLOR 0.9% 250 ML INJ 250 ML IV ONE (18:30)
--- NOTE | 2016-08-08 18:49 | RADRPT ---
EXAM DATE/TIME: 08/08/2016 18:08 [facility] COMPARISON: No previous studies available for comparison. INDICATIONS : Intermittent left sided abdominal pain for 1 month; recent stroke. IV CONTRAST: 95 cc Omnipaque 350 (iohexol) IV ORAL CONTRAST: No oral contrast ingested. RADIATION DOSE: 9.96 CTDIvol (mGy) MEDICAL HISTORY : Hypertension. Cardiovascular disease Chronic obstructive pulmonary disease.GERD, Diabetes, HIV, Hepat itis C, Multiple myeloma. SURGICAL HISTORY : None. ENCOUNTER: Initial ACUITY: 1 month PAIN SCALE: 5/10 LOCATION: Left Abdomen/pelvis TECHNIQUE: Volumetric scanning of the abdomen and pelvis was performed. Using automated exposure control and ad justment of the mA and/or kV according to patient size, radiation dose was kept as low as reasonably achievable to obtain optimal diagnostic quality images. FINDINGS: The bones have a diffusely mottled and osteopenic appearance characteristic of history of myeloma. Ap pearance is similar to 2014. Multiple mild compression deformities in the spine. There is focal consolidation in the right lower lobe most characteristic of a pneumonia. No significant abnormality in the liver, spleen, adrenals, kidneys or pancreas. The no free fluid. No bowel obstruction. Mild constipation. CONCLUSION: 1. No acute findings within the abdomen and pelvis. 2. Right lower lobe consolidation most characteristic of pneumonia or aspiration. 3. Bony findings characteristic of multiple myeloma history. Manolo Her MD on August 08, 2016 at 18:43 Board Certified Radiologist. This report was verified electronically.
[2016-08-08 19:00] VITALS: BP 141/80; PULSE 106; RESP 20; O2SAT 96
[2016-08-08] MEDS ORDERED: methylPREDNISolone SOD SUCC 125 MG/2 ML VIAL IV PUSH ONE (19:30)
[2016-08-08 21:00] VITALS: BP 147/82; PULSE 110; RESP 20; O2SAT 96; O2SAT 97
[2016-08-08] MEDS ORDERED: ONDANSETRON HCL 4 MG/2 ML VIAL IVP PRN (22:30)
[2016-08-08] MEDS ORDERED: SENNOSIDES 8.6 MG TAB PO PRN (22:30)
[2016-08-08] MEDS ORDERED: Custom Consult Pharmacy 1 EA OTHER SCH (22:30)
[2016-08-08] MEDS ORDERED: MAGNESIUM HYDROXIDE SUSP 30 ML CUP PO PRN (22:30)
[2016-08-08] MEDS ORDERED: BISACODYL 10 MG SUPP PR PRN (22:30)
--- NOTE | 2016-08-08 22:57 | HHI.HP ---
[facility] Ad[facility] Diagnosis pneumonia, chest pain, HIV Diagnoses: Chief Complaint: Hemoptysis and short of breath Travel History International Travel<30 Days: No Contact w/Intl Traveler <30 Da: No Traveled to Known Affected Are: No History of Present Illness 60 years old male with history of HIVand multiple myeloma, CVA COPD's, CAD, hypertension, presented to the ED complaining of hemoptysis of dark blood mixed with the sputum started at 11 AM this morning along with chest pain and abdominal discomfort and worsening cough. Nausea and vomiting positive. In general patient is poor historian, he informed me he stopped taking HAART for his HIV, patient was here in the hospital seen by Dr. Figueroa a few days ago and he was discharged to follow up with a CT chest in 6 months. History of spine about 8 out of 10 but nonspecific generalized all over, CT of the abdomen has been done in ED and 8 didn't show intra-abdominal problem but right lower lobe pneumonia. Patient denied diarrhea, change in his vision headache or other neuro symptoms. On reviewing his system he reported multiple episodes of night sweats, he stated recently he didn't notice losing weight. Past Family Social History Allergies: Coded Allergies: Penicillin (Verified Allergy, Severe, RASH, 08/08/16) Methocarbamol (Verified Allergy, Intermediate, SWELLING AROUND EYES, ) *MDRO Multi-Drug Resistant Organism (Verified Adverse Reaction, Unknown, MRSA, 08/08/16) MRSA screen POSITIVE - 07/02/16 Physical Exam Vital Signs Vital Signs Date Time Temp Pulse Resp B/P Pulse Ox O2 Delivery O2 Flow Rate FiO2 08/08/16 18:02 95 Nasal Cannula 2 08/08/16 16:19 99.0 95 22 136/83 96 Room Air 08/08/16 14:45 99.7 97 28 137/95 08/08/16 14:45 99.7 94 28 137/95 97 Room Air Physical Exam GENERAL: This is a well-nourished, well-developed patient, in no apparent distress. SKIN: No rashes, ecchymoses or lesions. Cool and dry. HEAD: Atraumatic. Normocephalic. No temporal or scalp tenderness. EYES: Pupils equal round and reactive. Extraocular motions intact. No scleral icterus. No injection or drainage. ENT: Nose without bleeding, purulent drainage or septal hematoma. Throat without erythema, tonsillar hypertrophy or exudate. Uvula midline. Airway patent. NECK: Trachea midline. No JVD or lymphadenopathy. Supple, nontender, no meningeal signs. CARDIOVASCULAR: Regular rate and rhythm without murmurs, gallops, or rubs. RESPIRATORY: Clear to auscultation. Breath sounds equal bilaterally. No wheezes , rales, or rhonchi. GASTROINTESTINAL: Abdomen soft, non-tender, nondistended. No hepato-splenomegaly , or palpable masses. No guarding. MUSCULOSKELETAL: Extremities without clubbing, cyanosis, or edema. No joint tenderness, effusion, or edema noted. No calf tenderness. Negative Homans sign bilaterally. NEUROLOGICAL: Awake and alert. Cranial nerves II through XII intact. Motor and sensory grossly within normal limits. Five out of 5 muscle strength in all muscle groups. Normal speech. Laboratory Laboratory Tests Test 08/08/16 16:35 White Blood Count 8.8 Red Blood Count 4.03 Hemoglobin 11.4 Hematocrit 33.8 Mean Corpuscular Volume 83.9 Mean Corpuscular Hemoglobin 28.2 Mean Corpuscular Hemoglobin 33.6 Concent Red Cell Distribution Width 15.7 Platelet Count 211 Mean Platelet Volume 7.9 Neutrophils (%) (Auto) 59.3 Lymphocytes (%) (Auto) 27.1 Monocytes (%) (Auto) 9.8 Eosinophils (%) (Auto) 3.6 Basophils (%) (Auto) 0.2 Neutrophils # (Auto) 5.2 Lymphocytes # (Auto) 2.4 Monocytes # (Auto) 0.9 Eosinophils # (Auto) 0.3 Basophils # (Auto) 0.0 CBC Comment DIFF FINAL Differential Comment Prothrombin Time 10.7 Prothromb Time International 1.0 Ratio Activated Partial 26.6 Thromboplast Time Urine Color YELLOW Urine Turbidity HAZY Urine pH 7.5 Urine Specific [place] 1.018 Urine Protein TRACE Urine Glucose (UA) NEG Urine Ketones NEG Urine Occult Blood NEG Urine Nitrite NEG Urine Bilirubin NEG Urine Urobilinogen 4.0 Urine Leukocyte Esterase NEG Urine WBC 1 Urine Mucus FEW Microscopic Urinalysis Comment CULT NOT INDICATED Sodium Level 140 Potassium Level 4.0 Chloride Level 106 Carbon Dioxide Level 25.6 Anion Gap 8 Blood Urea Nitrogen 10 Creatinine 1.05 Estimat Glomerular Filtration 88 Rate Random Glucose 92 Lactic Acid Level 1.0 Calcium Level 8.8 Magnesium Level 1.9 Total Bilirubin 0.2 Aspartate Amino Transf 24 (AST/SGOT) Alanine Aminotransferase 43 (ALT/SGPT) Alkaline Phosphatase 75 Total Creatine Kinase 148 Creatine Kinase MB 0.6 Troponin I LESS THAN 0.02 B-Type Natriuretic Peptide 10 Total Protein 7.9 Albumin 3.1 Lipase 191 Date/Time Procedure Status Source Growth 08/08/16 17:20 Gram Stain - Final Resulted Sputum Expectorated Sputum 08/08/16 17:20 Sputum Culture Resulted Sputum Expectorated Sputum Pending 08/08/16 16:35 Aerobic Blood Culture Received Blood Peripheral Pending 08/08/16 16:35 Anaerobic Blood Culture Received Blood Peripheral Pending Result Diagram: 08/08/16 1635 08/08/16 1635 Assessment and Plan Assessment and Plan 60 years old male with history of HIV and multiple myeloma came with acute complain of Right lower lobe pneumonia with Hemoptysis and chest pain , tachycardia with history of night sweat nausea and vomiting rule out sepsis, patient has HIV leukocytosis might not be reflected, rule out TB versus PCP Nausea and vomiting History of HIV with last CD4 number above 200 daily's ago History of multiple myeloma History of CVA History of COPD DVT prophylaxis Plan: Admit for observation O2 DuoNeb Solu-Medrol CT abdomen and chest x-ray reviewed by me showing left lower lobe consolidation Started on Azactam and azithromycin, we will continue prophylactically TB test has been done on 04 August reviewed by me was negative Check sputum culture and sensitivity, urine antigen for Legionella and pneumococcus I will consult pulmonary to give opinion for possible need of bronchoscopy need to rule out TB versus PCP DVT prophylaxis with SCD will hold chemical due to hemoptysis Dominga Marie MD Aug 08, 2016 22:56
[2016-08-08 23:00] VITALS: BP 142/78; PULSE 90; RESP 20; O2SAT 97
[2016-08-08] MEDS ORDERED: RESP: ALBUTEROL 2.5 MG/IPRATROPIUM 0.5 MG NEB (PRN) NEB (23:00)
[2016-08-09] VITALS (9 sets, daily range): BP systolic 116–145; BP diastolic 63–77; PULSE 81–104; RESP 19–20; TEMP 97.7–98.2; O2SAT 95–98
[2016-08-09] MEDS: RESP: ALBUTEROL 2.5 MG/IPRATROPIUM 0.5 MG NEB (SCH) NEB ×4 (07:35→20:00)
[2016-08-09 07:45] LABS: BASOPHIL % 0.2 % (0.0-2.0); EOSINOPHIL % 0.1 % (0.0-4.0); HEMATOCRIT 34.1 % (39.0-51.0); HEMO FLAGS DIFF FINAL; LYMPH % 15.1 % (9.0-44.0); LYMPHOCYTE # 1.3 TH/MM3 (1.0-4.8); MEAN CELL VOLUME 84.3 FL (80.0-100.0); MEAN CORPUSCULAR HEMOGLOBIN 28.5 PG (27.0-34.0); MEAN CORPUSCULAR HGB CONC 33.8 % (32.0-36.0); MONO % 1.7 % (0.0-8.0); NEUT % 82.9 % (16.0-70.0); PLATELET COUNT 206 TH/MM3 (150-450); RED BLOOD COUNT 4.04 MIL/MM3 (4.50-5.90); RED CELL DISTRIBUTION WIDTH 15.2 % (11.6-17.2); WHITE BLOOD COUNT 8.4 TH/MM3 (4.0-11.0)
[2016-08-09 08:03] LABS: BICARBONATE 24.6 MEQ/L (21.0-32.0); POTASSIUM 3.8 MEQ/L (3.5-5.1)
[2016-08-09] MEDS: DOCUSATE SODIUM 100 MG CAP PO SCH ×2 (09:00→21:08)
[2016-08-09] MEDS: ENALAPRIL MALEATE 2.5 MG TAB PO SCH (10:00)
[2016-08-09] MEDS: METOPROLOL TARTRATE 25 MG TAB PO SCH ×2 (10:17→21:08)
[2016-08-09] MEDS: AZTREONAM INJ 2,000 MG in SODIUM CHLORIDE 0.9% INJ 100 ML IV SCH ×2 (10:22→21:06)
--- NOTE | 2016-08-09 11:14 | HHI.PR ---
Subjective Remarks Follow-up for pneumonia. Per RN report at bedside, the patient had some hemoptysis last night. The patient states she's been having sweats. He denies any cough or rash. He states that prior to his previous admission last week, he ran out of his HIV medications, [facility]. Objective Vitals Vital Signs Date Time Temp Pulse Resp B/P Pulse Ox O2 Delivery O2 Flow Rate FiO2 08/09/16 08:03 97.7 90 19 116/72 98 08/09/16 07:35 95 08/09/16 05:00 98.2 87 19 133/63 96 08/09/16 04:15 81 08/09/16 03:00 88 20 145/77 97 Nasal Cannula 2 08/08/16 23:00 90 20 142/78 97 Nasal Cannula 2 08/08/16 21:00 20 97 Nasal Cannula 2 08/08/16 21:00 110 20 147/82 96 Nasal Cannula 2 08/08/16 19:00 106 20 141/80 96 Nasal Cannula 2 08/08/16 18:02 95 Nasal Cannula 2 08/08/16 16:19 99.0 95 22 136/83 96 Room Air 08/08/16 14:45 99.7 97 28 137/95 08/08/16 14:45 99.7 94 28 137/95 97 Room Air I/O 08/08/16 08/08/16 08/08/16 08/09/16 08/09/16 08/09/16 07:00 15:00 23:00 07:00 15:00 23:00 Intake Total 240 ml Output Total 750 ml Balance -510 ml Intake Oral 240 ml Output Urine Total 750 ml # Voids 1 Result Diagram: 08/09/16 0655 08/09/16 0655 Imaging Last Impressions Chest X-Ray 08/08/16 1515 Signed Impressions: Service Date/Time: Monday, August 08, 2016 15:48 - CONCLUSION: 1. Right basilar patchiness consistent with atelectasis and/or infiltrate. Clinical correlation is recommended. 2. Degenerative changes and multilevel compression deformities involving the thoracic and lumbar spine. Dragan Price MD Abdomen/Pelvis CT 08/08/16 0000 Signed Impressions: Service Date/Time: Monday, August 08, 2016 18:08 - CONCLUSION: 1. No acute findings within the abdomen and pelvis. 2. Right lower lobe consolidation most characteristic of pneumonia or aspiration. 3. Bony findings characteristic of multiple myeloma history. Manolo Her MD Objective Remarks GENERAL: Well-developed well-nourished. In no acute distress. SKIN: Warm and dry. No lesions noted. HEENT: Normocephalic. Pupils equal and round. Mucous membranes pink and moist. CARDIOVASCULAR: Regular rate and rhythm. No murmur appreciated. RESPIRATORY: No accessory muscle use. Clear to auscultation. Breath sounds equal bilaterally. GASTROINTESTINAL: Abdomen soft, non-tender, nondistended. Bowel sounds x4. MUSCULOSKELETAL: No obvious deformities. No clubbing or cyanosis. No edema. NEUROLOGICAL: Awake and alert. No focal neurological deficits. Moves upper and lower extremities spontaneously. Normal speech. PSYCHIATRIC: Appropriate mood and affect; insight and judgment normal. A/P Assessment and Plan 60-year-old male with a past medical history of HIV, multiple myeloma, CVA, COPD , CAD, HTN who presented with hemoptysis Sepsis: At admission tachycardia and tachypnea. Source pneumonia. Tmax 99.7. No leukocytosis and lactic acid within normal limits. Blood cultures pending. Continue IV antibiotics. Immunocompromised with HIV, questionable medication compliance, consult ID. Pneumonia: Imaging reviewed and shows right lower lobe infiltrate. Treating with IV azithromycin and aztreonam. AFB culture 2/5 with no acid-fast bacilli seen. Urinary antigens negative. Sputum culture pending. History of pulmonary mass. Pulmonology consulted. O2 and nebs as needed. HIV: Resume home antiretrovirals. Educated on compliance. ID consulted. Hypertension: BP is soft. Continue home enalapril and metoprolol with hold parameters. DVT prophylaxis: SCDs. No chemical prophylaxis with hemoptysis. Written by Darwin Joe, acting as scribe for Dr. Jordan on 08/09/16 at 11:14. The documentation accurately reflects the work performed [id number] by me Dr. Jordan on 08/09/16 at 11:14. Discharge Planning Admit to inpatient. Disposition pending clinical course. Darwin Joe Aug 09, 2016 11:14 Hoa Jordan MD Aug 09, 2016 14:25
[2016-08-09] MEDS: RITONAVIR 100 MG TAB PO SCH ×2 (11:31→21:08)
[2016-08-09] MEDS: RALTEGRAVIR 400 MG TAB PO SCH ×2 (11:31→21:09)
[2016-08-09] MEDS: THIAMINE HCL 100 MG TAB PO SCH (11:31)
[2016-08-09] MEDS: ABACAVIR SULFATE 300 MG TAB PO SCH ×2 (11:32→21:08)
[2016-08-09] MEDS: DARUNAVIR 800 MG TAB PO SCH (11:33)
--- NOTE | 2016-08-09 13:09 | EKG ---
Date Performed: 08/08/2016 Time Performed: 17:25:23 PTAGE: 60 years EKG: Sinus rhythm MODERATE VOLTAGE CRITERIA FOR LVH, CONSIDER NORMAL VARIANT POSSIBLE SEPTAL MYOCARDIAL INFARCTION MOD ERATE T-WAVE ABNORMALITY, CONSIDER LATERAL ISCHEMIA ABNORMAL ECG Compared to prior tracing no signifi cant change PREVIOUS TRACING 08/02/2016 @10.46.03 DOCTOR: Leonard Meza Interpretating Date/Time 08/09/2016 13:08:34
--- NOTE | 2016-08-09 14:41 | MB ---
cc: Jerad MYLES M.D. DATE OF CONSULTATION: 08/09/2016 REASON FOR CONSULTATION: Mr. Dowd is a 60-year-old black male who was in and out of the hospital here over the last several months with a stroke with an irregular density in his right apex noted in June followed up here in July during admission a Dr. Figueroa saw him at that time. He was subsequently seen at the [facility] in [place] on referral for possible small cavitary lesion of unclear significance in the right upper lobe. He came into the emergency room today because he was having some left-sided chest pain and had some blood streaked sputum. PAST MEDICAL HISTORY: He has a very extensive prior history including a recent stroke. multiple myeloma Diabetes chronic pain syndrome COPD continues to smoke GERD hepatitis C HIV coronary artery disease status post stent severe degenerative arthritis with prior compression fractures and a history of marijuana use. Most recent admission he was in early July where he presented with generalized weakness and left-sided weakness. He has had several recent CT's with no evidence of pulmonary embolism. He does have some waxing and waning infiltrates at the bases, possibly some mild bronchiectasis and a small 1-2 cm irregular density in the right upper lobe. At the time of this consultation the patient is awake, alert, very comfortable at rest. There is some sputum in the base and at his bedside. It does look somewhat purulent, but there is no blood. He denies significant shortness of breath but he is very sedentary. He has been spending time at the [facility] recently so has had multiple exposures with other folks, some of whom he said were coughing. SOCIAL HISTORY He continues to smoke about a half-a-pack per day. Denies drinking alcohol, although he has been positive for cocaine on an tox screen as recently as in June. He denies any continued use. REVIEW OF SYSTEMS Review of systems other than that noted above. His appetite is been poor. He is actually really quite thin. He has had no syncopal episodes. No vomiting. No abdominal complaints or diarrhea. No swelling in his legs, orthopnea or PND. PHYSICAL EXAMINATION IN GENERAL: Very thin black male in no distress at rest on 2 liters of oxygen. His sats 98%. VITAL SIGNS: He is afebrile. His respirations are nonlabored at 18 and his pulse is 100. HEAD, EYES, EARS, NOSE, AND THROAT: Sclerae anicteric. Mucous membranes are moist. NECK: Neck veins are not distended. No adenopathy in neck. CHEST: The chest is actually clear a little diminished but no congestion or wheezing. HEART: Regular rhythm. No harsh murmur. ABDOMEN: The abdomen is soft. No edema. No clubbing of the nail beds. RADIOLOGIC: He had a chest x-ray here has a little patchy density at the right base. LABORATORY White count 8000, hemoglobin 11, platelets were normal. He has he BUN and creatinine are normal. Albumin is 3. ASSESSMENT AND PLAN: Mr. Dowd presents with a very complex medical history. He has been undergoing outpatient evaluation for multiple problems including myeloma recent diagnosis of a right upper lobe cavitary nodule and chronic HIV and hepatitis C as well as COPD and coronary disease. We will monitor his sputum for the next 12-24 hours. There is certainly no blood at the present time. No clear indication of a emergent need for intervention from a pulmonary standpoint, although he really does have to keep his follow-up which is scheduled with regard to this small nodule in his right upper lobe. If he continued to have hemoptysis here in the hospital we would go ahead and proceed with a diagnostic bronchoscopy but again I do not feel that is urgent in the hospital but he must keep followup to monitor that. Further diagnostic and/or therapeutic range will depend on his response and ongoing clinical course. R. MD SARA Gallardo/britta /11:38 AM /1:18 PM
[2016-08-09] MEDS: ACETAMINOPHEN 325 MG TAB PO PRN (17:07)
--- NOTE | 2016-08-09 17:33 | PD.ID.CON ---
History of Present Illness Service ID Consult Requested By Dr Jordan Reason for Consult PNA and HIV Primary Care Physician [facility] Diagnoses: History of Present Illness 60 M with multiple med probx including HIV dz, last CD4 246 and recent stroke resulted in R sided hemiparesis which is gradually improving admitted 5 days ago with L sided chest pain and found to have cavitary pulmonary lesion cultures are P, routine showed no kevin groeth, AFB and fungal stains negative Grew out non cryptococal yeast This time pt presented with cc of productive cough and hemoptysis No fever chills Pt has an HIV provider but acqnoledges non compliance with HIV mneds Lasdt time prior to this admission he took his HAART about 1 moth ago. Logistic issue sited as barriers to compliance, though it has been note that in the last 2 mos pt was positive on both his drug screen for cocaine Low grade fever on admission (99.7F) Review of Systems Constitutional: COMPLAINS OF: Weight loss Eyes: COMPLAINS OF: Blurred vision Respiratory: COMPLAINS OF: Cough, Hemoptysis, Sputum production, Shortness of breath Cardiovascular: COMPLAINS OF: Chest pain Gastrointestinal: COMPLAINS OF: Bloody stools Genitourinary: COMPLAINS OF: Urinary incontinence Neurologic: COMPLAINS OF: Abnormal gait, Localized weakness, Paresthesias, Poor Balance Except as stated in HPI: all other systems reviewed are Neg Past Family Social History Allergies: Coded Allergies: Penicillin (Verified Allergy, Severe, RASH, 08/08/16) Methocarbamol (Verified Allergy, Intermediate, SWELLING AROUND EYES, ) *MDRO Multi-Drug Resistant Organism (Verified Adverse Reaction, Unknown, MRSA, 08/08/16) MRSA screen POSITIVE - 07/02/16 Past Medical History HIV HCV COPD DM MM (mult myeloma) Past Surgical History cardiac stents Active Ordered Medications Medications where reviewed in EMR Antibiotics Include: Azithro, aztreonam HAART: ABC prezista/r Raltegravir Family History Non-Contributory. Social History tobacco 1 ppd ETOH occasional admits to cocaine, cocaine + , denies IVDU Physical Exam Vital Signs Vital Signs Date Time Temp Pulse Resp B/P Pulse Ox O2 Delivery O2 Flow Rate FiO2 08/09/16 12:29 98.2 99 19 118/68 96 08/09/16 08:03 97.7 90 19 116/72 98 08/09/16 08:00 104 08/09/16 07:35 95 08/09/16 05:00 98.2 87 19 133/63 96 08/09/16 04:15 81 08/09/16 03:00 88 20 145/77 97 Nasal Cannula 2 08/08/16 23:00 90 20 142/78 97 Nasal Cannula 2 08/08/16 21:00 20 97 Nasal Cannula 2 08/08/16 21:00 110 20 147/82 96 Nasal Cannula 2 08/08/16 19:00 106 20 141/80 96 Nasal Cannula 2 08/08/16 18:02 95 Nasal Cannula 2 Physical Exam CONSTITUTIONAL/GENERAL: This is a quite thin male patient, in no apparent distress. TUBES/LINES/DRAINS: SKIN: No jaundice, rashes, or lesions. Skin temperature appropriate. Not diaphoretic. HEAD: Atraumatic. Normocephalic. EYES: Pupils equal and round and reactive. Extraocular motions intact. No scleral icterus. No injection or drainage. Fundi not examined. ENT: Hearing grossly normal. Nose without bleeding or purulent drainage. Throat without visible erythema, exudates, masses, or lesions. NECK: Trachea midline. Supple, nontender. No palpable thyroid enlargement or nodularity. CARDIOVASCULAR: Regular rate and rhythm without murmurs, gallops, or rubs. No JVD. Peripheral pulses symmetric. RESPIRATORY/CHEST: Symmetric, unlabored respirations. Clear to auscultation. Breath sounds equally diminished bilaterally. No wheezes, rales, or rhonchi. GASTROINTESTINAL: Abdomen soft, non-tender, nondistended. No hepato-splenomegaly , or palpable masses. No guarding. Bowel sounds present. GENITOURINARY: Without palpable bladder distension. . MUSCULOSKELETAL: Extremities without clubbing, cyanosis, or edema. No joint tenderness or effusion noted. No calf tenderness. No mottling or clubbing. LYMPHATICS: No palpable cervical or supraclavicular adenopathy. NEUROLOGICAL: Awake and alert. Motor and sensory grossly within normal limits. Follows commands. Cognitively sharp. Moves all extremities. PSYCHIATRIC: No obvious anxiety/depression. no apparent hallucinations or other psychotic thought process. Laboratory Laboratory Tests Test 08/09/16 06:55 White Blood Count 8.4 Red Blood Count 4.04 Hemoglobin 11.5 Hematocrit 34.1 Mean Corpuscular Volume 84.3 Mean Corpuscular Hemoglobin 28.5 Mean Corpuscular Hemoglobin 33.8 Concent Red Cell Distribution Width 15.2 Platelet Count 206 Mean Platelet Volume 8.2 Neutrophils (%) (Auto) 82.9 Lymphocytes (%) (Auto) 15.1 Monocytes (%) (Auto) 1.7 Eosinophils (%) (Auto) 0.1 Basophils (%) (Auto) 0.2 Neutrophils # (Auto) 7.0 Lymphocytes # (Auto) 1.3 Monocytes # (Auto) 0.1 Eosinophils # (Auto) 0.0 Basophils # (Auto) 0.0 CBC Comment DIFF FINAL Differential Comment Sodium Level 139 Potassium Level 3.8 Chloride Level 106 Carbon Dioxide Level 24.6 Anion Gap 8 Blood Urea Nitrogen 12 Creatinine 1.15 Estimat Glomerular Filtration 79 Rate Random Glucose 201 Calcium Level 8.6 Date/Time Procedure Status Source Growth 08/08/16 17:20 Gram Stain - Final Resulted Sputum Expectorated Sputum 08/08/16 17:20 Sputum Culture - Preliminary Resulted Sputum Expectorated Sputum HEAVY GROWTH NORMAL RESPIRATORY EMILY... 08/08/16 16:35 Legionella Antigen - Final Complete Urine Clean Catch PRESUMPTIVE NEGATIVE FOR LEGIONELLA P... 08/08/16 16:35 Streptococcus pneumoniae Antigen (M - Final Complete Urine Clean Catch PRESUMPTIVE NEGATIVE FOR STREPTOCOCCU... 08/08/16 16:35 Aerobic Blood Culture - Preliminary Resulted Blood Peripheral NO GROWTH IN 1 DAY 08/08/16 16:35 Anaerobic Blood Culture - Preliminary Resulted Blood Peripheral NO GROWTH IN 1 DAY Result Diagram: 08/09/16 0655 08/09/16 0655 Imaging Last Impressions Chest X-Ray 08/08/16 1515 Signed Impressions: Service Date/Time: Monday, August 08, 2016 15:48 - CONCLUSION: 1. Right basilar patchiness consistent with atelectasis and/or infiltrate. Clinical correlation is recommended. 2. Degenerative changes and multilevel compression deformities involving the thoracic and lumbar spine. Dragan Price MD Abdomen/Pelvis CT 08/08/16 0000 Signed Impressions: Service Date/Time: Monday, August 08, 2016 18:08 - CONCLUSION: 1. No acute findings within the abdomen and pelvis. 2. Right lower lobe consolidation most characteristic of pneumonia or aspiration. 3. Bony findings characteristic of multiple myeloma history. Manolo Her MD Assessment and Plan Assessment and Plan Cavitary pulmonary lesion, L lung ? lung abscess - AFB stain neg - quantferron neg HIV dz with poor complicane - barrier to compliance is likely substance abuse Cocaine abuse HIgh grade PCN allergy -hives recent stroke dc azitro, dc azactam start clindamycin for possible lung abscess obain records from his HIV provider re pts HAART Pt is not benefiting his HAART with poor compliance and likely ddevelops resistance - dw pt, he is counseled re resistance development Clary Sellers MD Aug 09, 2016 17:33
[2016-08-09] MEDS ORDERED: AZITHROMYCIN INJ 500 MG in SODIUM CHLOR 0.9% 250 ML INJ 250 ML IV SCH (18:00)
[2016-08-09] MEDS: ATORVASTATIN 40 MG TAB PO SCH (21:08)
[2016-08-09] MEDS: MIRTAZAPINE 15 MG TAB PO SCH (21:09)
[2016-08-10] VITALS (9 sets, daily range): BP systolic 111–142; BP diastolic 68–78; PULSE 68–85; RESP 18–19; TEMP 97–98.3; O2SAT 94–98
[2016-08-10] MEDS: CLINDAMYCIN INJ 600 MG in SODIUM CHLORIDE 0.9% INJ 100 ML IV SCH ×4 (00:26→18:16)
[2016-08-10] MEDS: RESP: ALBUTEROL 2.5 MG/IPRATROPIUM 0.5 MG NEB (SCH) NEB ×4 (07:49→20:00)
[2016-08-10] MEDS: RITONAVIR 100 MG TAB PO SCH ×2 (09:47→21:46)
[2016-08-10] MEDS: DOCUSATE SODIUM 100 MG CAP PO SCH ×3 (09:47→21:47)
[2016-08-10] MEDS: DARUNAVIR 800 MG TAB PO SCH (09:48)
[2016-08-10] MEDS: RALTEGRAVIR 400 MG TAB PO SCH ×2 (09:48→21:46)
[2016-08-10] MEDS: THIAMINE HCL 100 MG TAB PO SCH (09:48)
[2016-08-10] MEDS: METOPROLOL TARTRATE 25 MG TAB PO SCH ×2 (09:49→21:47)
[2016-08-10] MEDS: ABACAVIR SULFATE 300 MG TAB PO SCH ×2 (09:49→21:47)
[2016-08-10] MEDS: ENALAPRIL MALEATE 2.5 MG TAB PO SCH (09:49)
--- NOTE | 2016-08-10 12:33 | MB ---
cc: Jerad MYLES DATE OF CONSULTATION: 08/10/2016 REASON FOR CONSULTATION: HISTORY OF PRESENT ILLNESS: The patient is a 60-year-old black male with multiple medical comorbidities including HIV infection and he has not been compliant with follow up or therapy at least with regard to the HIV. He did have an appointment with his [place] after his last admission here in early July, and is being referred for further evaluation to [place] for a small right upper lobe nodular density. The patient presented because he was short of breath and had hemoptysis according to history. Since being in the hospital he has had no recurrent hemoptysis. He is afebrile with oxygen saturations 96-97% on room air. He has been seen by infectious disease who has also emphasized the importance of followup particularly with regard to reinstituting therapy for HIV disease. He has had a sputum with normal farzana. AFB is pending. Blood cultures have been negative. White count is 8400, hemoglobin is 11. PHYSICAL EXAMINATION Thin black male in no distress, 98 degrees, pulse 80, blood pressure 130/76, respirations 16, sat 97% room air. Neck: Neck veins are flat. Chest: Diminished but clear. Heart: No harsh murmur. Extremities: No edema. ASSESSMENT AND PLAN: Mr. Dowd has had no recurrence of hemoptysis. The lesion in his right upper lobe is small. It has not changed over the course of the last several weeks. Certainly could be a small abscess, maybe a very small malignancy. He has been started on clindamycin by Infectious Disease and does need appropriate outpatient follow up. I have emphasized the importance of this to him. The lesion in the right upper lobe is really too small at this point to consider a biopsy. The patient has been instructed to keep outpatient follow up that was previously scheduled through the [place] system. MD SARA Hummel/JOSE /11:38 AM /12:27 PM
--- NOTE | 2016-08-10 12:34 | HHI.PR ---
Subjective Remarks Follow up for sepsis, pneumonia, hemoptysis. The patient reports feeling better today. Shortness of breath improved. Still with productive cough with yellow sputum, no further hemoptysis. Denies any chest pain. No fevers overnight. Objective Vitals Vital Signs Date Time Temp Pulse Resp B/P Pulse Ox O2 Delivery O2 Flow Rate FiO2 08/10/16 09:04 85 18 132/76 94 08/10/16 07:49 97 21 08/10/16 03:33 98.3 68 19 142/78 96 08/09/16 20:00 91 08/09/16 19:39 98.1 92 19 118/66 96 08/09/16 18:07 20 08/09/16 12:29 98.2 99 19 118/68 96 Result Diagram: 08/09/16 0655 08/09/16 0655 Imaging Last Impressions Chest X-Ray 08/08/16 1515 Signed Impressions: Service Date/Time: Monday, August 08, 2016 15:48 - CONCLUSION: 1. Right basilar patchiness consistent with atelectasis and/or infiltrate. Clinical correlation is recommended. 2. Degenerative changes and multilevel compression deformities involving the thoracic and lumbar spine. Dragan Price MD Abdomen/Pelvis CT 08/08/16 0000 Signed Impressions: Service Date/Time: Monday, August 08, 2016 18:08 - CONCLUSION: 1. No acute findings within the abdomen and pelvis. 2. Right lower lobe consolidation most characteristic of pneumonia or aspiration. 3. Bony findings characteristic of multiple myeloma history. Manolo Her MD Objective Remarks GENERAL: Well-developed middle aged AA male patient in NAD. SKIN: Warm and dry. HEAD: Atraumatic. Normocephalic. EYES: Pupils equal and round. No scleral icterus. No injection or drainage. ENT: No nasal bleeding or discharge. Mucous membranes pink and moist. NECK: Trachea midline. CARDIOVASCULAR: Regular rate and rhythm. RESPIRATORY: No accessory muscle use. Mild wheezing and slightly diminished at bilateral bases. Breath sounds equal bilaterally. GASTROINTESTINAL: Abdomen soft, non-tender, nondistended. Normoactive bowel sounds x4. MUSCULOSKELETAL: Extremities without clubbing, cyanosis, or edema. No obvious deformities. NEUROLOGICAL: Awake and alert. No obvious cranial nerve deficits. Motor grossly within normal limits. Five out of 5 muscle strength in the arms and legs. Normal speech. PSYCHIATRIC: Appropriate mood and affect; insight and judgment normal. Medications and IVs Current Medications Medications (Trade) Dose Ordered Sig/Donna Route Start Time Stop Time Status Last Admin (NS Flush) 2 ml UNSCH PRN IVF 08/08/16 15:15 08/08/16 19:53 (NS Flush) 2 ml UNSCH PRN IVF 08/08/16 18:30 (Tylenol) 650 mg Q4H PRN PO 08/08/16 22:30 08/09/16 17:07 (Zofran Inj) 4 mg Q6H PRN IVP 08/08/16 22:30 (Dulcolax Supp) 10 mg DAILY PRN [place] 08/08/16 22:30 (Colace) 100 mg Q12HR PO 08/09/16 09:00 08/10/16 09:47 (Milk Of Magnesia Liq) 30 ml Q12H PRN PO 08/08/16 22:30 (Senokot) 17.2 mg Q12H PRN PO 08/08/16 22:30 (Ziagen) 600 mg Q12HR PO 08/09/16 10:00 08/10/16 09:49 (Lipitor) 40 mg HS PO 08/09/16 21:00 08/09/16 21:08 (Prezista) 800 mg DAILY PO 08/09/16 10:00 08/10/16 09:48 (Vasotec) 2.5 mg DAILY PO 08/09/16 10:00 08/10/16 09:49 (Lopressor) 12.5 mg BID PO 08/09/16 10:00 08/10/16 09:49 (Remeron) 15 mg HS PO 08/09/16 21:00 08/09/16 21:09 (Isentress) 400 mg Q12HR PO 08/09/16 10:00 08/10/16 09:48 (Norvir) 100 mg BID PO 08/09/16 10:00 08/10/16 09:47 Thiamine HCl 100 mg 100 mg DAILY PO 08/09/16 10:00 08/10/16 09:48 (Cleocin Inj/NS Inj) 104 ml @ 208 mls/hr Q6HR IV 08/10/16 00:00 08/10/16 00:26 A/P Assessment and Plan 60-year-old male with a past medical history of HIV, multiple myeloma, CVA, COPD , CAD, HTN who presented with hemoptysis Sepsis: Upon admission tachycardia and tachypnea. Source pneumonia. Tmax 99.7. No leukocytosis, lactic acid wnl. Blood cultures with NGTD. Continue IV antibiotics. Immunocompromised with HIV, questionable medication compliance, consult ID. Pneumonia: Imaging reviewed and shows RLL infiltrate. Infectious disease consulted. S/p IV azithromycin and aztreonam, now on IV Clinda per ID. AFB culture 08/03 with no acid-fast bacilli seen. Urinary antigens negative. Sputum culture pending. History of pulmonary mass. Pulmonology consulted, appreciate recommendations. O2 and nebs as needed. HIV: Resume home antiretrovirals. Educated on compliance. ID consulted. Hypertension: BP is soft. Continue home enalapril and metoprolol with hold parameters. DVT prophylaxis: SCDs. No chemical prophylaxis with hemoptysis. Written by Mary Kay Noyola, acting as scribe for Dr. Jordan on 08/10/16 at 09:58. The documentation accurately reflects the work performed [id number] by or Dr. Jordan on 08/10/16 at 09:58. Mary Kay Noyola PA-C Aug 10, 2016 12:34 Hoa Jordan MD Aug 10, 2016 18:07
[2016-08-10] MEDS: ACETAMINOPHEN 325 MG TAB PO PRN (16:36)
[2016-08-10] MEDS: ATORVASTATIN 40 MG TAB PO SCH (21:47)
[2016-08-10] MEDS: MIRTAZAPINE 15 MG TAB PO SCH (21:47)
[2016-08-11] VITALS (7 sets, daily range): BP systolic 104–129; BP diastolic 59–77; PULSE 69–93; RESP 16–18; TEMP 97.2–98.4; O2SAT 96–98
[2016-08-11] MEDS: CLINDAMYCIN INJ 600 MG in SODIUM CHLORIDE 0.9% INJ 100 ML IV SCH ×3 (00:12→13:02)
[2016-08-11] MEDS: DOCUSATE SODIUM 100 MG CAP PO SCH (09:00)
[2016-08-11] MEDS: METOPROLOL TARTRATE 25 MG TAB PO SCH (10:23)
[2016-08-11] MEDS: ABACAVIR SULFATE 300 MG TAB PO SCH (10:23)
[2016-08-11] MEDS: THIAMINE HCL 100 MG TAB PO SCH (10:23)
[2016-08-11] MEDS: RALTEGRAVIR 400 MG TAB PO SCH (10:23)
[2016-08-11] MEDS: DARUNAVIR 800 MG TAB PO SCH (10:23)
[2016-08-11] MEDS: RITONAVIR 100 MG TAB PO SCH (10:23)
[2016-08-11] MEDS: ENALAPRIL MALEATE 2.5 MG TAB PO SCH (10:24)
[2016-08-11] MEDS: RESP: ALBUTEROL 2.5 MG/IPRATROPIUM 0.5 MG NEB (SCH) NEB ×3 (10:39→20:00)
--- NOTE | 2016-08-11 11:39 | HHI.PR ---
Subjective Remarks Follow up for sepsis, pneumonia, hemoptysis. The patient reports feeling much better today. Denies any fevers/chills, cough, sputum production, hemoptysis, shortness of breath, or chest pain. He wants to go home. He reports he will continue compliance with his medications. He has no other complaints at this time. Objective Vitals Vital Signs Date Time Temp Pulse Resp B/P Pulse Ox O2 Delivery O2 Flow Rate FiO2 08/11/16 08:45 96 21 08/11/16 08:18 97.9 79 16 126/77 98 08/11/16 04:17 98.4 69 18 104/60 96 08/11/16 00:23 98.4 74 18 129/74 96 08/10/16 20:27 97.0 83 18 111/68 95 08/10/16 20:13 98 21 08/10/16 20:00 84 08/10/16 17:36 20 08/10/16 16:49 80 18 121/68 95 08/10/16 13:14 84 18 115/68 96 I/O 08/10/16 08/10/16 08/10/16 08/11/16 08/11/16 08/11/16 07:00 15:00 23:00 07:00 15:00 23:00 Intake Total 1000 ml Output Total 900 ml Balance 100 ml Intake Oral 800 ml IV Total 200 ml Output Urine Total 900 ml # Voids 2 # Bowel Movements 1 Result Diagram: 08/09/16 0655 08/09/16 0655 Imaging Last Impressions Chest X-Ray 08/08/16 1515 Signed Impressions: Service Date/Time: Monday, August 08, 2016 15:48 - CONCLUSION: 1. Right basilar patchiness consistent with atelectasis and/or infiltrate. Clinical correlation is recommended. 2. Degenerative changes and multilevel compression deformities involving the thoracic and lumbar spine. Dragan Price MD Abdomen/Pelvis CT 08/08/16 0000 Signed Impressions: Service Date/Time: Monday, August 08, 2016 18:08 - CONCLUSION: 1. No acute findings within the abdomen and pelvis. 2. Right lower lobe consolidation most characteristic of pneumonia or aspiration. 3. Bony findings characteristic of multiple myeloma history. Manolo Her MD Objective Remarks GENERAL: Well-developed middle aged AA male patient in NAD. SKIN: Warm and dry. HEENT: Atraumatic. Normocephalic. Pupils equal and round. No scleral icterus. No injection or drainage. Mucous membranes pink and moist. NECK: Trachea midline. CARDIOVASCULAR: Regular rate and rhythm. RESPIRATORY: No accessory muscle use. Minimally diminished at bilateral bases, otherwise clear to auscultation, no wheezing. Breath sounds equal bilaterally. GASTROINTESTINAL: Abdomen soft, non-tender, nondistended. Normoactive bowel sounds x4. MUSCULOSKELETAL: Extremities without clubbing, cyanosis, or edema. No obvious deformities. NEUROLOGICAL: Awake and alert. No obvious cranial nerve deficits. Motor grossly within normal limits. Normal speech. PSYCHIATRIC: Appropriate mood and affect; insight and judgment normal. Medications and IVs Current Medications Medications (Trade) Dose Ordered Sig/Donna Route Start Time Stop Time Status Last Admin (NS Flush) 2 ml UNSCH PRN IVF 08/08/16 15:15 08/08/16 19:53 (NS Flush) 2 ml UNSCH PRN IVF 08/08/16 18:30 (Tylenol) 650 mg Q4H PRN PO 08/08/16 22:30 08/10/16 16:36 (Zofran Inj) 4 mg Q6H PRN IVP 08/08/16 22:30 (Dulcolax Supp) 10 mg DAILY PRN [place] 08/08/16 22:30 (Colace) 100 mg Q12HR PO 08/09/16 09:00 08/10/16 09:47 (Milk Of Magnesia Liq) 30 ml Q12H PRN PO 08/08/16 22:30 (Senokot) 17.2 mg Q12H PRN PO 08/08/16 22:30 (Ziagen) 600 mg Q12HR PO 08/09/16 10:00 08/11/16 10:23 (Lipitor) 40 mg HS PO 08/09/16 21:00 08/10/16 21:47 (Prezista) 800 mg DAILY PO 08/09/16 10:00 08/11/16 10:23 (Vasotec) 2.5 mg DAILY PO 08/09/16 10:00 08/11/16 10:24 (Lopressor) 12.5 mg BID PO 08/09/16 10:00 08/11/16 10:23 (Remeron) 15 mg HS PO 08/09/16 21:00 08/10/16 21:47 (Isentress) 400 mg Q12HR PO 08/09/16 10:00 08/11/16 10:23 (Norvir) 100 mg BID PO 08/09/16 10:00 08/11/16 10:23 Thiamine HCl 100 mg 100 mg DAILY PO 08/09/16 10:00 08/11/16 10:23 (Cleocin Inj/NS Inj) 104 ml @ 208 mls/hr Q6HR IV 08/10/16 00:00 08/11/16 05:38 Urinary Catheter: No A/P Assessment and Plan 60-year-old male with a past medical history of HIV, multiple myeloma, CVA, COPD , CAD, HTN who presented with hemoptysis Sepsis: Upon admission tachycardia and tachypnea. Source pneumonia. Tmax 99.7. No leukocytosis, lactic acid wnl. Blood cultures with NGTD. Continue IV antibiotics. Immunocompromised with HIV, questionable medication compliance, consult ID, appreciate recommendations. Sepsis resolved. Pneumonia: Imaging reviewed and shows RLL infiltrate. Infectious disease consulted. S/p IV azithromycin and aztreonam, now on IV Clinda per ID. AFB culture 08/03 with no acid-fast bacilli seen. Urinary antigens negative. Sputum culture with heavy growth normal respiratory farzana. History of pulmonary mass, see below. Pulmonology consulted, appreciate recommendations, outpatient f/up. O2 and nebs as needed. Improved. RUL Pulmonary Lesion: per pulmonology, lesion is small, has not changed over course of last several weeks, could be small abscess or maybe very small malignancy, recommended continuing antibiotics per ID, lesion too small to consider biopsy, [facility] HIV: Resume home antiretrovirals. Educated on compliance. ID consulted. Hypertension: BP is soft. Continue home enalapril and metoprolol with hold parameters. DVT prophylaxis: SCDs. No chemical prophylaxis with hemoptysis. Written by Mary Kay Noyola, acting as scribe for Dr. Jordan on 08/11/16 at 14:25 The documentation accurately reflects the work performed [id number] by me Dr. Jordan on 08/11/16 at 14:25 Discharge Planning Possible discharge if ok with infectious disease, await recommendations regarding po antibiotics. Discussed with Mary Kay Dietz PA-Cb 13, 2017 11:39 Hoa Jordan MD Aug 11, 2016 14:37
[2016-08-11] MEDS ORDERED: LEVO750T33 PO (17:23)
--- NOTE | 2016-08-11 17:25 | HHI.DCPOC ---
Discharge Care Plan Diagnosis: (1) Pneumonia (2) Chest pain (3) Cavitating mass in right upper lung lobe Goals to Promote Your Health * To prevent worsening of your condition and complications * To maintain your health at the optimal level Directions to Meet Your Goals Take your medications as prescribed Follow your dietary instruction Follow activity as directed Keep your appointments as scheduled Take your immunizations and boosters as scheduled If your symptoms worsen call your PCP, if no PCP go to Urgent Care Center or Emergency Room Smoking is Dangerous to Your Health. Avoid second hand smoke Call the 24-hour hour crisis hotline for domestic abuse at Mary Kay Noyola PA-C Aug 11, 2016 17:25 Hoa Jordan MD Aug 12, 2016 15:56
--- NOTE | 2016-08-11 17:46 | HHI.DS ---
Discharge Summary Admission Date Aug 08, 2016 at 19:29 Discharge Date: Aug 11, 2016 Admitting Diagnosis pneumonia, chest pain, HIV (1) Sepsis ICD Code: A41.9 Diagnosis: Principal (2) Pneumonia ICD Code: J18.9 Diagnosis: Principal (3) Chest pain ICD Code: R07.9 Diagnosis: Secondary (4) COPD (chronic obstructive pulmonary disease) ICD Code: J44.9 Diagnosis: Secondary (5) Cavitating mass in right upper lung lobe ICD Code: J98.4 Diagnosis: Secondary (6) HIV (human immunodeficiency virus infection) ICD Code: Z21 Diagnosis: Secondary Procedures None. Brief History - From Admission 60 years old male with history of HIVand multiple myeloma, CVA COPD's, CAD, hypertension, presented to the ED complaining of hemoptysis of dark blood mixed with the sputum started at 11 AM this morning along with chest pain and abdominal discomfort and worsening cough. Nausea and vomiting positive. In general patient is poor historian, he informed me he stopped taking HAART for his HIV, patient was here in the hospital seen by Dr. Figueroa a few days ago and he was discharged to follow up with a CT chest in 6 months. History of spine about 8 out of 10 but nonspecific generalized all over, CT of the abdomen has been done in ED and 8 didn't show intra-abdominal problem but right lower lobe pneumonia. Patient denied diarrhea, change in his vision headache or other neuro symptoms. On reviewing his system he reported multiple episodes of night sweats, he stated recently he didn't notice losing weight. CBC/BMP: 08/09/16 0655 08/09/16 0655 Significant Findings Laboratory Tests Test 08/09/16 06:55 Red Blood Count 4.04 MIL/MM3 (4.50-5.90) Hemoglobin 11.5 GM/DL (13.0-17.0) Hematocrit 34.1 % (39.0-51.0) Neutrophils (%) (Auto) 82.9 % (16.0-70.0) Estimat Glomerular Filtration 79 ML/MIN (>89) Rate Random Glucose 201 MG/DL (74-106) Imaging Last Impressions Chest X-Ray 08/08/16 1515 Signed Impressions: Service Date/Time: Monday, August 08, 2016 15:48 - CONCLUSION: 1. Right basilar patchiness consistent with atelectasis and/or infiltrate. Clinical correlation is recommended. 2. Degenerative changes and multilevel compression deformities involving the thoracic and lumbar spine. Dragan Price MD Abdomen/Pelvis CT 08/08/16 0000 Signed Impressions: Service Date/Time: Monday, August 08, 2016 18:08 - CONCLUSION: 1. No acute findings within the abdomen and pelvis. 2. Right lower lobe consolidation most characteristic of pneumonia or aspiration. 3. Bony findings characteristic of multiple myeloma history. Manolo Her MD PE at Discharge GENERAL: Well-developed middle aged AA male patient in NAD. SKIN: Warm and dry. HEENT: Atraumatic. Normocephalic. Pupils equal and round. No scleral icterus. No injection or drainage. Mucous membranes pink and moist. NECK: Trachea midline. CARDIOVASCULAR: Regular rate and rhythm. RESPIRATORY: No accessory muscle use. Minimally diminished at bilateral bases, otherwise clear to auscultation, no wheezing. Breath sounds equal bilaterally. GASTROINTESTINAL: Abdomen soft, non-tender, nondistended. Normoactive bowel sounds x4. MUSCULOSKELETAL: Extremities without clubbing, cyanosis, or edema. No obvious deformities. NEUROLOGICAL: Awake and alert. No obvious cranial nerve deficits. Motor grossly within normal limits. Normal speech. PSYCHIATRIC: Appropriate mood and affect; insight and judgment normal. Hospital Course 60-year-old male with a past medical history of HIV, multiple myeloma, CVA, COPD , CAD, HTN who presented with hemoptysis Sepsis with Pneumonia: Upon admission tachycardia and tachypnea. Tmax 99.7. Source pneumonia with RLL infiltrate. No leukocytosis, lactic acid wnl. Blood cultures with NGTD. AFB culture 2/5 with no acid-fast bacilli seen. Urinary antigens negative. Sputum culture with heavy growth normal respiratory farzana. History of pulmonary mass, see below. ID Consulted, followed by Dr. Sellers. S /p IV Aztreonam and Azithro, then changed to IV Clinda by ID. Immunocompromised with HIV, questionable medication compliance, consult ID, restarted meds, appreciate recommendations. O2 and nebs as needed. Sepsis resolved. Patient cleared for discharge on Levaquin 750mg qd x7days per Dr. Sellers. RUL Pulmonary Lesion: per pulmonology, lesion is small, has not changed over course of last several weeks, could be small abscess or maybe very small malignancy, recommended continuing antibiotics per ID, lesion too small to consider biopsy, [facility] HIV: Resumed home antiretrovirals. Educated on compliance. ID was on board. Patient plans to follow up with his infectious disease physician after discharge. Hypertension: BP is soft. Continued home low dose enalapril and metoprolol with hold parameters. DVT prophylaxis: SCDs. No chemical prophylaxis with hemoptysis. Written by Mary Kay Noyola, acting as scribe for Dr. Jordan on 08/11/16 at 17:40 The documentation accurately reflects the work performed [id number] by me Dr. Jordan on 08/11/16 at 17:40 Pt Condition on Discharge: Stable Discharge Disposition: Discharge Home Discharge Time: > 30 minutes Discharge Instructions DIET: Follow Instructions for: Heart Healthy Diet Activities you can perform: Regular-No Restrictions Follow up Referrals: Infectious Disease - 2-3 Days PCP Follow-up - 1 Week with [facility] Pulmonology - 1 Week with [facility] New Medications: Levofloxacin (Levofloxacin) 750 Mg Tab 750 MG PO DAILY Infection #7 Ref 0 TAB Continued Medications: Abacavir (Ziagen) 300 Mg Tab 600 MG PO Q12HR Hazardous agent; use appropriate precautions for handling & disposal. Mgmt Viral Infection #60 Ref 0 TAB Albuterol 18 GM Inh (Ventolin Hfa 18 GM Inh) 90 Mcg/Act Aer 2 PUFF INH Q4H PRN SHORTNESS OF BREATH #1 Ref 0 INHALER Aspirin (Aspirin) 325 Mg Tab 325 MG PO DAILY #30 TAB Atorvastatin (Lipitor) 40 Mg Tab 40 MG PO HS #30 TAB Darunavir (Prezista) 800 Mg Tab 800 MG PO DAILY Mgmt Viral Infection #30 Ref 0 TAB Dexamethasone (Dexamethasone) 4 Mg Tab 40 MG PO WEEKLY ON THURSDAYS #120 Ref 0 TAB Enalapril (Enalapril) 2.5 Mg Tab 2.5 MG PO DAILY HTN #30 TAB Metoprolol Tartrate (Metoprolol Tartrate) 25 Mg Tab 12.5 MG PO BID #60 Ref 0 TAB Mirtazapine (Mirtazapine) 15 Mg Tab 15 MG PO HS Depression Control #30 Ref 0 TAB Pyrimethamine (Daraprim) 25 Mg Tab 50 MG PO DAILY #30 Ref 0 TAB Raltegravir (Isentress) 400 Mg Tab 400 MG PO Q12HR Mgmt Viral Infection #60 Ref 0 TAB Ritonavir (Norvir) 100 Mg Cap 100 MG PO BID Mgmt Viral Infection #180 Ref 0 CAP Thiamine (Thiamine) 100 Mg Tab 100 MG PO DAILY Nutritional Supplement Ref 0 TAB Mary Kay Noyola PA-C Aug 11, 2016 17:45 Hoa Jordan MD Aug 12, 2016 15:55
== END 2016-08-12 00:23 | disposition home or self-care (01) | DRG 975 ==
LOC: NEPC 14:02 → INTOOBSV 19:29 → NEDA 19:29 → NEPHCDU 08-09 03:03 → OBSVTOIN 08-09 13:33
PROVIDERS: ADMIT Hospitalist; ATTEND Hospitalist
DX: A41.9 Sepsis, unspecified organism (principal); B20 Human immunodeficiency virus [HIV] disease; C90.00 Multiple myeloma not having achieved remission; I11.0 Hypertensive heart disease with heart failure; J18.9 Pneumonia, unspecified organism; I50.9 Heart failure, unspecified; J98.11 Atelectasis; E11.9 Type 2 diabetes mellitus without complications; I25.10 Atherosclerotic heart disease of native coronary artery without angina pectoris; J44.9 Chronic obstructive pulmonary disease, unspecified; Z86.73 Personal history of transient ischemic attack (TIA), and cerebral infarction without residual deficits; F17.200 Nicotine dependence, unspecified, uncomplicated; F14.10 Cocaine abuse, uncomplicated; F12.90 Cannabis use, unspecified, uncomplicated; G89.4 Chronic pain syndrome; I25.2 Old myocardial infarction; J45.909 Unspecified asthma, uncomplicated; K21.9 Gastro-esophageal reflux disease without esophagitis; Z91.19 Patient's noncompliance with other medical treatment and regimen; Z95.5 Presence of coronary angioplasty implant and graft; R00.0 Tachycardia, unspecified
CPT/HCPCS: 71010; 74177; 76937; 80048; 80053; 81001; 82550; 82552; 82948; 83605; 83690; 83735; 83880; 84484; 85025; 85610; 85730; 87015; 87040; 87070; 87116; 87205; 87206; 87449; 93005; 94640; 94664; 96365; G0378; J0456; J2930; J7050; Q9967

== ENCOUNTER 2017-11-03 15:09 | Emergency (ER) | payer OTHER ==
[2017-11-03] MEDS ORDERED: SODIUM CHLORIDE 0.9% FLUSH 10 ML FLUSH IVF (17:15)
[2017-11-03] MEDS: RESP: ALBUTEROL 2.5 MG/IPRATROPIUM 0.5 MG NEB (SCH) INH ×2 (17:39→17:40)
[2017-11-03 18:26] LABS: BASOPHIL # 0.1 TH/MM3 (0-0.2); BASOPHIL % 0.9 % (0.0-2.0); EOSINOPHIL # 0.2 TH/MM3 (0-0.4); EOSINOPHIL % 3.1 % (0.0-4.0); HEMATOCRIT 32.9 % (39.0-51.0); HEMO FLAGS DIFF FINAL; HEMOGLOBIN 10.9 GM/DL (13.0-17.0); LYMPHOCYTE # 2.6 TH/MM3 (1.0-4.8); MEAN CELL VOLUME 83.3 FL (80.0-100.0); MEAN CORPUSCULAR HEMOGLOBIN 27.6 PG (27.0-34.0); MEAN CORPUSCULAR HGB CONC 33.2 % (32.0-36.0); MEAN PLATELET VOLUME 7.2 FL (7.0-11.0); MONO % 10.8 % (0.0-8.0); MONOCYTE # 0.7 TH/MM3 (0-0.9); NEUT % 45.2 % (16.0-70.0); PLATELET COUNT 392 TH/MM3 (150-450); RED BLOOD COUNT 3.95 MIL/MM3 (4.50-5.90); RED CELL DISTRIBUTION WIDTH 14.5 % (11.6-17.2); WHITE BLOOD COUNT 6.6 TH/MM3 (4.0-11.0)
[2017-11-03] MEDS: cefTRIAXone INJ 1,000 MG in SODIUM CHLORIDE 0.9% INJ 100 ML IV (18:32)
[2017-11-03 18:47] LABS: ALBUMIN 2.2 GM/DL (3.4-5.0); ANION GAP 8 MEQ/L (5-15); AST (GOT) 26 U/L (15-37); BICARBONATE 27.4 MEQ/L (21.0-32.0); BLOOD UREA NITROGEN 8 MG/DL (7-18); CALCIUM 8.4 MG/DL (8.5-10.1); CHLORIDE 104 MEQ/L (98-107); CREATININE 0.93 MG/DL (0.60-1.30); GLOMERULAR FILTRATION RATE 100 ML/MIN (>89); GLUCOSE,RANDOM 74 MG/DL (74-106); POTASSIUM 3.5 MEQ/L (3.5-5.1); SODIUM (NA) 139 MEQ/L (136-145)
[2017-11-03 18:48] LABS: ALT (GPT) 21 U/L (12-78)
[2017-11-03 18:52] LABS: ALKALINE PHOSPHATASE 77 U/L (45-117); TOTAL BILIRUBIN ADULT 0.2 MG/DL (0.2-1.0); TROPONIN I LESS THAN 0.02 NG/ML (0.02-0.05)
[2017-11-03] MEDS: AZITHROMYCIN INJ 500 MG in SODIUM CHLOR 0.9% 250 ML INJ 250 ML IV (19:30)
[2017-11-03 19:49] LABS: B-TYPE NATRIURETIC PEPTIDE 22 PG/ML (0-100)
== END 2017-11-03 20:46 | disposition home or self-care (01) ==
LOC: NEPD 15:09
DX: J18.1 Lobar pneumonia, unspecified organism (principal); J44.0 Chronic obstructive pulmonary disease with (acute) lower respiratory infection; R00.0 Tachycardia, unspecified; I11.0 Hypertensive heart disease with heart failure; B20 Human immunodeficiency virus [HIV] disease; I50.9 Heart failure, unspecified; I25.2 Old myocardial infarction; E11.9 Type 2 diabetes mellitus without complications; E78.00 Pure hypercholesterolemia, unspecified; B19.20 Unspecified viral hepatitis C without hepatic coma; F17.210 Nicotine dependence, cigarettes, uncomplicated; Z86.73 Personal history of transient ischemic attack (TIA), and cerebral infarction without residual deficits; Z88.0 Allergy status to penicillin; Z79.4 Long term (current) use of insulin; Z79.899 Other long term (current) drug therapy
CPT/HCPCS: 71046; 80053; 83880; 84484; 85025; 87040; 87804; 87804-59; 93005; 94640; 94664; 96365; 96367; 99285-25

== ENCOUNTER 2017-11-03 21:25 | Emergency (ER) | payer OTHER | END 2017-11-03 21:57 | disposition left against medical advice (07) | LOC: NED 21:25 | DX: Z53.21 Procedure and treatment not carried out due to patient leaving prior to being seen by health care provider (principal) | CPT/HCPCS: 99281 ==